=== PATIENT | male | born 1955 | race Caucasian/White ===

== ENCOUNTER 2017-05-14 20:50 | Inpatient (IN) | payer BC ==
[~2017-05-14] VITALS: Ht 175.3 cm; Wt 86.2 kg
[2017-05-14 22:28] LABS: Albumin 3.5 g/dL (3.4-5.0); BUN/Creatinine Ratio 8.1; Basophils # (auto) 0.1 uL; Basophils % (auto) 0.5 % (0.0-2.0); Bilirubin, Total 0.7 mg/dL (0.2-1.0); CONDITION Y; Calcium 8.8 mg/dL (8.5-10.1); DEFINITIVE SEE PRINTOUT; Eosinophils # (auto) 0.1 uL; Eosinophils % (auto) 0.3 % (0.0-7.0); Hemoglobin 12.2 g/dL (13.5-17.5); Lymphocytes # (auto) 1.9 uL; Lymphocytes % (auto) 12.6 % (10.0-50.0); Mean Corpuscular Hgb Conc. 34.9 g/dL (32.0-36.0); Mean Corpuscular Volume 103.1 fL (80.0-100.0); Mean Platelet Volume 8.2 fL (7.4-10.4); Monocytes # (auto) 0.6 uL; Monocytes % (auto) 4.4 % (0.0-12.0); Neutrophils # (auto) 12.1 uL; Neutrophils % (auto) 82.2 % (37.0-80.0); Platelet Count (auto) 362 10^3/uL (140-450); Potassium 3.3 mmol/L (3.5-5.1); Red Cell Distribution Width 12.9 % (11.6-16.0); Total Protein 6.7 g/dL (6.4-8.2); White Blood Cell 14.8 10^3/uL (4.4-10.8)
[2017-05-14 22:46] LABS: INR 0.94 (0.9-1.15); Prothrombin Time 10.2 sec (9.37-12.3)
[2017-05-15] MEDS ORDERED: SODIUM CHLORIDE 0.9% 1,000 ML IV ONE (02:30)
[2017-05-15] MEDS ORDERED: ONDANSETRON HCL 4 MG/2 ML VIAL IV ONE (08:00)
[2017-05-15] MEDS ORDERED: MORPHINE SULFATE 4 MG/ML SYRG IV ONE (08:00)
[2017-05-15] MEDS ORDERED: metroNIDAZOLE 500MG/100ML 100 ML IV ONE (08:00)
[2017-05-15] MEDS ORDERED: cefTRIAXone 1GM/50ML D5W 50 ML IV ONE (08:00)
[2017-05-15 08:02] LABS: Urine Bilirubin Negative (Negative); Urine Blood Negative /uL (Negative); Urine Color Yellow (Yellow); Urine Glucose Normal (Normal); Urine Ketone Negative (Negative); Urine Nitrite Negative (Negative); Urine RBC <1 /hpf (0 - 3); Urine Urobilinogen Normal (Negative); Urine pH 5.5 (5.0-8.0)
[2017-05-15] MEDS ORDERED: POTASSIUM CHL 10 Meq TABLET PO ONE (09:30)
[2017-05-15] MEDS ORDERED: CYCLOBENZAPRINE HCL 10 MG TAB PO PRN (09:30)
[2017-05-15] MEDS ORDERED: TEMAZEPAM 15 MG CAP PO PRN (09:30)
[2017-05-15] MEDS ORDERED: DOCUSATE SOD 100 MG CAP PO PRN (09:30)
[2017-05-15] MEDS ORDERED: ACETAMINOPHEN 325 MG TAB PO PRN (09:30)
[2017-05-15] MEDS: SODIUM CHLORIDE 0.9% 1,000 ML IV SCH ×4 (09:40→14:39)
[2017-05-15] MEDS: PANTOPRAZOLE SODIUM 40 MG/10 ML VIAL IV SCH (09:48)
[2017-05-15] MEDS: amLODIPine BESYLATE 5 MG TAB PO SCH (09:48)
[2017-05-15] MEDS: FAMOTIDINE (10MG/ML) 2ML VL IV SCH (09:48)
[2017-05-15] MEDS: NICOTINE 14 MG/24HR TOPICAL PATCH TD SCH (09:49)
[2017-05-15] MEDS: ATENOLOL 50 MG TAB PO SCH ×2 (09:49→21:35)
[2017-05-15] MEDS: MORPHINE SULF INJ 2 MG/ML SYRINGE 1ML IV PRN ×3 (12:08→20:30)
[2017-05-15] MEDS: GABAPENTIN 400 MG CAP PO SCH ×2 (14:35→21:34)
[2017-05-15] MEDS: metroNIDAZOLE 500MG/100ML 100 ML IV SCH ×2 (14:35→21:36)
[2017-05-15] MEDS: HYDROcodone-ACET 10/325MG TAB PO PRN ×2 (14:36→19:46)
[2017-05-15] MEDS ORDERED: HYDR-4663 PO (15:28)
[2017-05-15] MEDS ORDERED: ATE50T PO (15:28)
[2017-05-15] MEDS ORDERED: AMLO5TAB2 PO (15:30)
[2017-05-15] MEDS ORDERED: OMEP20CA74 PO (15:30)
[2017-05-15] MEDS ORDERED: CYCL7.5T15 PO (15:30)
[2017-05-15] MEDS: ONDANSETRON HCL 4 MG/2 ML VIAL IV PRN ×2 (16:09→21:33)
[2017-05-15 22:00] VITALS: BP 127/76
[2017-05-16] MEDS: MORPHINE SULF INJ 2 MG/ML SYRINGE 1ML IV PRN ×3 (02:10→12:19)
[2017-05-16 05:15] VITALS: BP 147/77
[2017-05-16] MEDS: metroNIDAZOLE 500MG/100ML 100 ML IV SCH ×3 (05:48→21:45)
[2017-05-16] MEDS: GABAPENTIN 400 MG CAP PO SCH ×3 (05:48→21:42)
[2017-05-16] MEDS: HYDROcodone-ACET 10/325MG TAB PO PRN ×5 (05:48→18:29)
[2017-05-16] MEDS: ONDANSETRON HCL 4 MG/2 ML VIAL IV PRN ×3 (06:02→21:44)
[2017-05-16 07:27] LABS: Basophils # (auto) 0 uL; Basophils % (auto) 0.3 % (0.0-2.0); CONDITION Y; DEFINITIVE SEE PRINTOUT; Eosinophils # (auto) 0.2 uL; Hemoglobin 10.9 g/dL (13.5-17.5); Lymphocytes # (auto) 0.9 uL; Lymphocytes % (auto) 7.1 % (10.0-50.0); Mean Corpuscular Hemoglobin 35.7 pg (28.0-32.0); Mean Corpuscular Hgb Conc. 34.2 g/dL (32.0-36.0); Mean Corpuscular Volume 104.4 fL (80.0-100.0); Mean Platelet Volume 8.1 fL (7.4-10.4); Monocytes # (auto) 0.5 uL; Monocytes % (auto) 4.4 % (0.0-12.0); Neutrophils # (auto) 10.5 uL; Neutrophils % (auto) 86.2 % (37.0-80.0); Platelet Count (auto) 273 10^3/uL (140-450); White Blood Cell 12.2 10^3/uL (4.4-10.8)
[2017-05-16 07:51] LABS: Albumin 3.2 g/dL (3.4-5.0); BUN/Creatinine Ratio 7.5; Bilirubin, Total 0.6 mg/dL (0.2-1.0); Total Protein 5.9 g/dL (6.4-8.2)
[2017-05-16 09:00] VITALS: BP 129/75
[2017-05-16] MEDS: FAMOTIDINE (10MG/ML) 2ML VL IV SCH (10:02)
[2017-05-16] MEDS: PANTOPRAZOLE SODIUM 40 MG/10 ML VIAL IV SCH (10:02)
[2017-05-16] MEDS: cefTRIAXone 1GM/50ML D5W 50 ML IV SCH (10:02)
[2017-05-16] MEDS: MULTIPLE VITAMIN TAB PO SCH (10:02)
[2017-05-16] MEDS: ATENOLOL 50 MG TAB PO SCH ×2 (10:03→21:43)
[2017-05-16] MEDS: amLODIPine BESYLATE 5 MG TAB PO SCH (10:03)
[2017-05-16] MEDS: NICOTINE 14 MG/24HR TOPICAL PATCH TD SCH (10:04)
[2017-05-16 13:00] VITALS: BP 136/74
[2017-05-16] MEDS: MORPHINE SULFATE 4 MG/ML SYRG IV PRN ×2 (16:06→21:46)
[2017-05-16 16:24] VITALS: BP 128/76
[2017-05-16] MEDS: SODIUM CHLORIDE 0.9% 1,000 ML IV SCH (19:03)
[2017-05-16 20:00] VITALS: BP 144/63
[2017-05-16 22:00] VITALS: BP 144/63
[2017-05-17] VITALS (7 sets, daily range): BP systolic 121–146; BP diastolic 63–88
[2017-05-17] MEDS: SODIUM CHLORIDE 0.9% 1,000 ML IV SCH ×2 (03:07→11:27)
[2017-05-17] MEDS: GABAPENTIN 400 MG CAP PO SCH ×3 (05:55→21:09)
[2017-05-17] MEDS: metroNIDAZOLE 500MG/100ML 100 ML IV SCH ×2 (05:55→14:24)
[2017-05-17] MEDS: HYDROcodone-ACET 10/325MG TAB PO PRN ×4 (05:56→22:34)
[2017-05-17] MEDS: ONDANSETRON HCL 4 MG/2 ML VIAL IV PRN ×3 (05:56→21:30)
[2017-05-17] MEDS: MORPHINE SULFATE 4 MG/ML SYRG IV PRN ×4 (08:41→21:30)
[2017-05-17] MEDS: NICOTINE 14 MG/24HR TOPICAL PATCH TD SCH (08:42)
[2017-05-17] MEDS: PANTOPRAZOLE SODIUM 40 MG/10 ML VIAL IV SCH (08:43)
[2017-05-17] MEDS: FAMOTIDINE (10MG/ML) 2ML VL IV SCH (08:43)
[2017-05-17] MEDS: MULTIPLE VITAMIN TAB PO SCH (08:43)
[2017-05-17] MEDS: cefTRIAXone 1GM/50ML D5W 50 ML IV SCH (08:44)
[2017-05-17] MEDS: amLODIPine BESYLATE 5 MG TAB PO SCH (11:19)
[2017-05-17] MEDS: ATENOLOL 50 MG TAB PO SCH ×2 (11:19→21:10)
[2017-05-17] MEDS: D5W/SOD CHL 0.45%/KCL 40MEQ 1,000 ML IV SCH (18:32)
[2017-05-17] MEDS ORDERED: POTASSIUM CHL 20 Meq TABLET PO ONE (22:00)
[2017-05-18] MEDS: D5W/SOD CHL 0.45%/KCL 40MEQ 1,000 ML IV SCH (05:15)
[2017-05-18] MEDS: GABAPENTIN 400 MG CAP PO SCH ×2 (05:15→13:16)
[2017-05-18 05:30] VITALS: BP 123/78
[2017-05-18 07:15] LABS: Potassium 3.1 mmol/L (3.5-5.1)
[2017-05-18 08:00] VITALS: BP 136/82
[2017-05-18] MEDS: MORPHINE SULFATE 4 MG/ML SYRG IV PRN ×2 (08:56→13:16)
[2017-05-18] MEDS: PANTOPRAZOLE SODIUM 40 MG/10 ML VIAL IV SCH (08:56)
[2017-05-18] MEDS: FAMOTIDINE (10MG/ML) 2ML VL IV SCH (08:56)
[2017-05-18] MEDS: NICOTINE 14 MG/24HR TOPICAL PATCH TD SCH (08:57)
[2017-05-18 09:04] VITALS: BP 109/75
[2017-05-18] MEDS: HYDROcodone-ACET 10/325MG TAB PO PRN ×2 (10:21→15:09)
[2017-05-18] MEDS: amLODIPine BESYLATE 5 MG TAB PO SCH (10:24)
[2017-05-18] MEDS: MULTIPLE VITAMIN TAB PO SCH (10:24)
[2017-05-18] MEDS: ATENOLOL 50 MG TAB PO SCH (10:25)
[2017-05-18 13:05] VITALS: BP 132/77
[2017-05-18 16:03] VITALS: BP 131/86
== END 2017-05-18 16:50 | disposition home or self-care (01) | DRG 439 ==
LOC: ER 20:57 → OVERFLOW 20:58 → WEST WING 05-15 14:00
PROVIDERS: ADMIT Internal Medicine; ATTEND Internal Medicine Pulmonary Disease
DX: K85.90 Acute pancreatitis without necrosis or infection, unspecified (principal); E87.1 Hypo-osmolality and hyponatremia; I10 Essential (primary) hypertension; K21.9 Gastro-esophageal reflux disease without esophagitis; K57.30 Diverticulosis of large intestine without perforation or abscess without bleeding; G89.4 Chronic pain syndrome; E86.0 Dehydration; D63.8 Anemia in other chronic diseases classified elsewhere; E87.6 Hypokalemia; Z82.49 Family history of ischemic heart disease and other diseases of the circulatory system; Z79.899 Other long term (current) drug therapy
CPT/HCPCS: 36415; 74176; 76705; 80051; 80053; 81001; 82150; 83605; 83690; 84484; 85025; 85610; 85730; 87040; 93005; 96361; 96365; 96375; C9113; J0696; J2405; J3490

== ENCOUNTER 2017-09-02 19:49 | Inpatient (IN) | payer BC ==
[~2017-09-02] VITALS: Ht 175.3 cm; Wt 52.9 kg
[~2017-09-02 19:49] MED LIST: AMLO5TAB2 PO; ATE50T PO; CYCL7.5T15 PO; HYDR-4683 PO; OMEP20CA74 PO
[2017-09-02 20:43] LABS: Basophils # (auto) 0.1 uL; Eosinophils # (auto) 0.1 uL; Lymphocytes # (auto) 1.4 uL; Mean Platelet Volume 7.6 fL (6.9-10.8); Monocytes # (auto) 0.5 uL; Neutrophils # (auto) 7.5 uL; Nucleated Red Blood Cells % 0.2 %; White Blood Cell 9.7 10^3/uL (4.4-10.8)
[2017-09-02 20:44] LABS: Basophils % (auto) 0.9 % (0.0-2.0); Eosinophils % (auto) 0.9 % (0.0-7.0); Hematocrit 38.6 % (41.0-53.0); Hemoglobin 13.8 g/dL (13.5-17.5); Lymphocytes % (auto) 14.9 % (10.0-50.0); Mean Corpuscular Hemoglobin 36.5 pg (28.0-32.0); Mean Corpuscular Hgb Conc. 35.8 g/dL (32.0-36.0); Monocytes % (auto) 5.6 % (0.0-12.0); Neutrophils % (auto) 77.7 % (37.0-80.0); Platelet Count (auto) 258 10^3/uL (140-450); Red Cell Distribution Width 14.8 % (11.8-14.3)
[2017-09-02 20:46] LABS: INR 0.95 (0.9-1.15); Partial Thromboplastin Time 27.3 sec (22.64-33.71); Prothrombin Time 10.4 sec (9.37-12.3)
[2017-09-02] MEDS ORDERED: SODIUM CHLORIDE 0.9% 1,000 ML IVB ONE (20:56)
[2017-09-02 20:59] LABS: Albumin 3.4 g/dL (3.4-5.0); Alkaline Phosphatase 232 U/L (45-117); Amylase 169 U/L (25-115); Anion Gap 8 (5-15); Aspartate Aminotransferase 79 U/L (15-37); BUN/Creatinine Ratio 9.7; Bilirubin, Total 0.7 mg/dL (0.2-1.0); Blood Urea Nitrogen 7 mg/dL (7-18); Calcium 8.1 mg/dL (8.5-10.1); Carbon Dioxide 30 mmol/L (21-32); Chloride 94 mmol/L (98-107); GFR African American 143 mL/min; GFR Non-African American 118 mL/min; Glucose 133 mg/dL (74-106); Sodium 132 mmol/L (136-145)
[2017-09-02] MEDS ORDERED: MORPHINE SULF INJ 2 MG/ML SYRINGE 1ML IV ONE ×2 (21:00→22:00)
[2017-09-02] MEDS ORDERED: ONDANSETRON HCL 4 MG/2 ML VIAL IV ONE (21:00)
[2017-09-02] MEDS: POTASSIUM CHL 20MEQ/100ML 100 ML IV SCH (21:45)
[2017-09-02] MEDS ORDERED: PANTOPRAZOLE 40 MG/10 ML VIAL IV ONE (22:00)
[2017-09-02] MEDS ORDERED: PROMETHAZINE HCL 25 MG/ML 1ML IV ONE (22:15)
[2017-09-02] MEDS ORDERED: HYDROmorphone HCL 2 MG/ML VL IV ONE (22:15)
[2017-09-02] MEDS ORDERED: ONDANSETRON HCL 4 MG/2 ML VIAL IV PRN (22:30)
[2017-09-02] MEDS ORDERED: TEMAZEPAM 15 MG CAP PO PRN (22:30)
[2017-09-02] MEDS ORDERED: ACETAMINOPHEN 500 MG TAB PO PRN (22:30)
[2017-09-02] MEDS: SODIUM CHLORIDE 0.9% 1,000 ML IV SCH (23:28)
[2017-09-02] MEDS ORDERED: cefTRIAXone 1GM/50ML D5W 50 ML IV ONE (23:30)
[2017-09-02 23:32] LABS: Urine RBC None Seen /hpf (0 - 3)
[2017-09-02 23:52] LABS: Urine Bilirubin Negative (Negative); Urine Blood Negative /uL (Negative); Urine Color Yellow (Yellow); Urine Glucose Normal (Normal); Urine Ketone Negative (Negative); Urine Nitrite Negative (Negative); Urine Urobilinogen Normal (Negative); Urine pH 6.5 (5.0-8.0)
[2017-09-03] VITALS (8 sets, daily range): BP systolic 130–148; BP diastolic 83–97
[2017-09-03] MEDS: HYDROcodone-ACET 5/325MG TAB PO PRN ×3 (00:22→08:27)
[2017-09-03] MEDS: POTASSIUM CHL 20MEQ/100ML 100 ML IV SCH (00:38)
[2017-09-03] MEDS ORDERED: HYDR-4072 PO (01:12)
[2017-09-03] MEDS: MORPHINE SULF INJ 2 MG/ML SYRINGE 1ML IV PRN ×6 (02:08→22:57)
[2017-09-03] MEDS ORDERED: metroNIDAZOLE 500MG/100ML 100 ML IV SCH (06:00)
[2017-09-03 06:49] LABS: Eosinophils # (auto) 0.2 uL; Hemoglobin 12.1 g/dL (13.5-17.5); Lymphocytes # (auto) 1.3 uL; Platelet Count (auto) 177 10^3/uL (140-450)
[2017-09-03 06:52] LABS: Basophils # (auto) 0.1 uL; Basophils % (auto) 0.5 % (0.0-2.0); Hematocrit 34.1 % (41.0-53.0); Lymphocytes % (auto) 13.1 % (10.0-50.0); Mean Corpuscular Hemoglobin 36.8 pg (28.0-32.0); Mean Corpuscular Hgb Conc. 35.5 g/dL (32.0-36.0); Mean Corpuscular Volume 103.6 fL (80.0-100.0); Mean Platelet Volume 7.9 fL (6.9-10.8); Monocytes # (auto) 0.5 uL; Monocytes % (auto) 4.9 % (0.0-12.0); Neutrophils # (auto) 7.8 uL; Neutrophils % (auto) 79.5 % (37.0-80.0); Nucleated Red Blood Cells % 0.1 %; Red Cell Distribution Width 14.7 % (11.8-14.3); White Blood Cell 9.9 10^3/uL (4.4-10.8)
[2017-09-03 07:21] LABS: Albumin 2.8 g/dL (3.4-5.0); BUN/Creatinine Ratio 10.2; Bilirubin, Total 0.7 mg/dL (0.2-1.0); Calcium 7.5 mg/dL (8.5-10.1); Total Protein 5.7 g/dL (6.4-8.2)
[2017-09-03 07:23] LABS: Potassium 2.9 mmol/L (3.5-5.1)
[2017-09-03] MEDS: SODIUM CHLORIDE 0.9% 1,000 ML IV SCH ×2 (08:56→18:17)
[2017-09-03] MEDS: amLODIPine BESYLATE 5 MG TAB PO SCH (09:27)
[2017-09-03] MEDS: PANTOPRAZOLE 40 MG/10 ML VIAL IV SCH (09:27)
[2017-09-03] MEDS: CYCLOBENZAPRINE HCL 10 MG TAB PO SCH (09:27)
[2017-09-03] MEDS: ATENOLOL 50 MG TAB PO SCH ×2 (09:28→22:47)
[2017-09-03] MEDS ORDERED: POTASSIUM CHLORIDE 40 MEQ, LIDOCAINE 1% (LOCAL ANESTH.) 4 ML in SODIUM CHL 0.9% 250 ML IV ONE (12:15)
[2017-09-03] MEDS ORDERED: POTASSIUM CHL 20 Meq TABLET PO ONE (12:15)
[2017-09-03] MEDS: HYDROcodone-ACET 10/325MG TAB PO PRN ×3 (12:32→20:33)
[2017-09-03] MEDS ORDERED: GABA-497 PO (13:00)
[2017-09-03] MEDS: GABAPENTIN 400 MG CAP PO SCH ×2 (13:22→22:18)
[2017-09-03] MEDS ORDERED: cefTRIAXone 1GM/50ML D5W 50 ML IV SCH (22:00)
[2017-09-04] MEDS: HYDROcodone-ACET 10/325MG TAB PO PRN ×4 (01:04→14:08)
[2017-09-04] MEDS: MORPHINE SULF INJ 2 MG/ML SYRINGE 1ML IV PRN ×4 (03:22→16:31)
[2017-09-04] MEDS: SODIUM CHLORIDE 0.9% 1,000 ML IV SCH ×2 (04:52→14:30)
[2017-09-04 05:00] VITALS: BP 156/90
[2017-09-04 06:33] LABS: Calcium 8.1 mg/dL (8.5-10.1); Magnesium 1.6 mg/dL (1.6-2.6); Potassium 4.1 mmol/L (3.5-5.1)
[2017-09-04 06:46] LABS: BUN/Creatinine Ratio 4.8
[2017-09-04 08:27] VITALS: BP 142/94
[2017-09-04] MEDS: PANTOPRAZOLE 40 MG/10 ML VIAL IV SCH (09:32)
[2017-09-04] MEDS: amLODIPine BESYLATE 5 MG TAB PO SCH (09:33)
[2017-09-04] MEDS: GABAPENTIN 400 MG CAP PO SCH (09:34)
[2017-09-04] MEDS: ATENOLOL 50 MG TAB PO SCH (09:35)
[2017-09-04] MEDS: CYCLOBENZAPRINE HCL 10 MG TAB PO SCH (09:35)
[2017-09-04 12:14] VITALS: BP 139/89
[2017-09-04 16:00] VITALS: BP 139/89
== END 2017-09-04 17:15 | disposition home or self-care (01) | DRG 439 ==
LOC: ER 19:53 → OVERFLOW 19:54 → WEST WING 23:24
PROVIDERS: ADMIT Nurse Practitioner Family; ATTEND Internal Medicine
DX: K85.90 Acute pancreatitis without necrosis or infection, unspecified (principal); E87.1 Hypo-osmolality and hyponatremia; E87.6 Hypokalemia; F17.210 Nicotine dependence, cigarettes, uncomplicated; F10.10 Alcohol abuse, uncomplicated; G89.29 Other chronic pain; I10 Essential (primary) hypertension; I73.9 Peripheral vascular disease, unspecified; J44.9 Chronic obstructive pulmonary disease, unspecified; K21.9 Gastro-esophageal reflux disease without esophagitis; M19.90 Unspecified osteoarthritis, unspecified site; Z79.899 Other long term (current) drug therapy; Z82.49 Family history of ischemic heart disease and other diseases of the circulatory system
CPT/HCPCS: 36415; 71010; 74176; 80048; 80053; 81001; 82150; 83690; 83735; 84484; 85025; 85610; 85730; 93005; 94761; 96361; 96365; 96375; C9113; J0696; J2001; J2405; J3490

== ENCOUNTER 2019-09-08 09:56 | Inpatient (IN) | payer MEDICAID ==
[~2019-09-08] VITALS: Ht 175.3 cm; Wt 54.0 kg
[~2019-09-08 09:56] MED LIST changes: +AMLO5TAB15 PO; -AMLO5TAB2 PO; +CHOL20007 PO; +CYCL1TAB18 PO; -CYCL7.5T15 PO; +FERR-20 PO; +FLUT0.05 NAS; +FOLI1TAB6 PO; -HYDR-4683 PO; +HYDR-4833 PO; +LORA0.5T12 PO; +MUPI2CRE17 EX; -OMEP20CA74 PO; +OMEP20TA PO; +TADA5TAB11 PO; +THIA50CA PO
[2019-09-08] MEDS ORDERED: SODIUM CHLORIDE 0.9% 1,000 ML IV ONE ×2 (10:40)
[2019-09-08 11:25] LABS: Eosinophils # (auto) 0 uL; Eosinophils % (auto) 0.2 % (0.0-7.0); Hemoglobin 11.5 g/dL (13.5-17.5); Lymphocytes # (auto) 0.9 uL; Lymphocytes % (auto) 7.4 % (10.0-50.0); Monocytes # (auto) 0.5 uL; Platelet Count (auto) 257 10^3/uL (140-450)
[2019-09-08 11:27] LABS: Basophils # (auto) 0.1 uL; Basophils % (auto) 0.4 % (0.0-2.0); Hematocrit 33.7 % (41.0-53.0); Mean Corpuscular Hemoglobin 34.9 pg (28.0-32.0); Mean Corpuscular Hgb Conc. 34.1 g/dL (32.0-36.0); Mean Corpuscular Volume 102.1 fL (80.0-100.0); Monocytes % (auto) 4.3 % (0.0-12.0); Neutrophils # (auto) 10.9 uL; Neutrophils % (auto) 87.7 % (37.0-80.0); Nucleated Red Blood Cells % 0.1 %; White Blood Cell 12.4 10^3/uL (4.4-10.8)
[2019-09-08 11:48] LABS: Alanine Aminotransferase 19 U/L (16-61); Albumin 4.1 g/dL (3.4-5.0); Alkaline Phosphatase 143 U/L (45-117); Anion Gap 14 (5-15); Aspartate Aminotransferase 27 U/L (15-37); BUN/Creatinine Ratio 18.1; Bilirubin, Total 1.2 mg/dL (0.2-1.0); Blood Urea Nitrogen 29 mg/dL (7-18); Calcium 9.6 mg/dL (8.5-10.1); Carbon Dioxide 25 mmol/L (21-32); Chloride 87 mmol/L (98-107); GFR African American 56 mL/min; GFR Non-African American 47 mL/min; Glucose 117 mg/dL (74-106); Magnesium 1.7 mg/dL (1.6-2.6); Sodium 126 mmol/L (136-145)
[2019-09-08 11:56] LABS: Potassium 2.9 mmol/L (3.5-5.1)
[2019-09-08] MEDS ORDERED: MORPHINE SULF INJ 2 MG/ML SYRINGE 1ML IV ONE (12:15)
[2019-09-08] MEDS ORDERED: POTASSIUM EFFERVESENT TAB 25 MEQ PO ONE (12:15)
[2019-09-08] MEDS ORDERED: cefTRIAXone 1GM/50ML D5W 50 ML IV ONE (14:00)
[2019-09-08] MEDS ORDERED: HYDROcodone-ACET 10/325MG TAB PO ONE (14:00)
[2019-09-08] MEDS ORDERED: ALUM & MAG HYDROX-SIMETH LIQ(MAALOX) 30 ML PO ONE (14:00)
[2019-09-08] MEDS ORDERED: LIDOCAINE VISCOUS 2% 15ML UD PO ONE (14:00)
[2019-09-08] MEDS ORDERED: POTASSIUM CHL 20 Meq TABLET PO ONE (14:00)
[2019-09-08] MEDS ORDERED: DONNATAL 5ml ORAL Elix (BELLADONNA ALK-PHENOBARB) PO ONE (14:00)
[2019-09-08] MEDS ORDERED: POTASSIUM CHLORIDE 40 MEQ, LIDOCAINE 1% (LOCAL ANESTH.) 4 ML in SODIUM CHL 0.9% 100 ML IV ONE (16:30)
[2019-09-08] MEDS ORDERED: FOLIC ACID 1 MG, MULTIPLE VITAMIN 10 ML, MAGNESIUM SULF SDV 50% 8 MEQ, THIAMINE INJ 100... INJ SCH ×5 (16:30)
[2019-09-08] MEDS ORDERED: ACETAMINOPHEN 500 MG TAB PO PRN (16:30)
[2019-09-08] MEDS ORDERED: IPRATROPIUM BROM 0.5 MG/2.5ML INH SOL NEB PRN (16:30)
[2019-09-08] MEDS ORDERED: LORazepam 2MG/ML-1ML VIAL IV PRN (16:30)
[2019-09-08] MEDS ORDERED: MORPHINE SULF INJ 2 MG/ML SYRINGE 1ML IV PRN (16:30)
[2019-09-08] MEDS ORDERED: ALBUTEROL SULF 2.5 MG/0.5ML(0.5%) NEB SOLN NEB PRN (16:30)
[2019-09-08] MEDS ORDERED: NITROGLYCERIN 0.4 MG SL TAB SL PRN (16:30)
[2019-09-08] MEDS: SUCRALFATE 1 GM/10 ML ORAL SUSP PO SCH (17:10)
[2019-09-08 17:26] LABS: Urine Bacteria NONE SEEN /hpf (None Seen); Urine Blood Negative /uL (Negative); Urine WBC <1 /hpf (0 - 3)
--- NOTE | 2019-09-08 17:45 | NUR ---
RECEIVED PT FROM ER STAFF, PT TRANSPORTED VIA WHEELCHAIR. AWAKE, ALERT, ORIENTEDx4 EFFORTLESS BREATHING ON ROOM AIR. IV PRESENT TO LAC#20, FLUSHES. COMFORTABLE ENVIRONMENT PROVIDED, BED LOCKED AND IN LOWEST POSITION, CALL LIGHT WITHIN REACH. WILL CONTINUE TO MONITOR.
[2019-09-08] MEDS: TAMSULOSIN HYDROCHLORIDE 0.4 MG CAP PO SCH (18:05)
[2019-09-08] MEDS: HYDROcodone-ACET 5/325MG TAB PO PRN (18:18)
[2019-09-08] MEDS: FOLIC ACID 1 MG, MULTIPLE VITAMIN 10 ML, MAGNESIUM SULF SDV 50% 8 MEQ, THIAMINE INJ 100... INJ SCH ×5 (18:19)
--- NOTE | 2019-09-08 18:25 | NUR ---
RT NOTE: PT DENIES SOB, PT ON ROOM AIR SPO2 99%, HR 75, RR 16. BS CLEAR. PT HAVING PAIN WHEN TAKING DEEP BREATHS DUE TO CRACKED RIB HE STATED. NO TX WANTED AT THIS TIME.
[2019-09-08 19:43] VITALS: BP 117/82
--- NOTE | 2019-09-08 20:00 | NUR ---
Opening Shift Note Assumed care of patient, awake and alert. No S/S of distress/SOB or pain. Instructed on POC and to call for assist PRN, will continue to monitor for changes Q1hr and PRN.
[2019-09-08] MEDS: ONDANSETRON HCL 4 MG/2 ML VIAL IV PRN (20:33)
[2019-09-08 21:00] VITALS: BP 113/73
[2019-09-08] MEDS: DOCUSATE SOD 100 MG CAP PO PRN (21:10)
[2019-09-08] MEDS: ATENOLOL 25 MG TAB PO SCH (21:11)
[2019-09-08] MEDS: FAMOTIDINE (10MG/ML) 2ML VL IV SCH (21:14)
[2019-09-08] MEDS: MORPHINE SULF INJ 2 MG/ML SYRINGE 1ML IV PRN (21:29)
[2019-09-09] MEDS: HYDROcodone-ACET 5/325MG TAB PO PRN ×3 (00:29→16:50)
[2019-09-09 04:30] VITALS: BP 107/67
[2019-09-09] MEDS: SUCRALFATE 1 GM/10 ML ORAL SUSP PO SCH ×3 (05:47→17:45)
[2019-09-09 06:37] LABS: Albumin 3.1 g/dL (3.4-5.0); BUN/Creatinine Ratio 17.8; Bilirubin, Total 0.6 mg/dL (0.2-1.0); Calcium 8.2 mg/dL (8.5-10.1); Magnesium 1.7 mg/dL (1.6-2.6); Potassium 3.3 mmol/L (3.5-5.1); Total Protein 5.8 g/dL (6.4-8.2)
--- NOTE | 2019-09-09 07:30 | NUR ---
Care report given to Marilu Pace, patient is resting no respiratory distress.
[2019-09-09 09:00] VITALS: BP 102/72
[2019-09-09] MEDS: FAMOTIDINE (10MG/ML) 2ML VL IV SCH (09:10)
[2019-09-09] MEDS: cefTRIAXone 1GM/50ML D5W 50 ML IV SCH (09:10)
[2019-09-09] MEDS: ONDANSETRON HCL 4 MG/2 ML VIAL IV PRN (09:10)
[2019-09-09] MEDS: ATENOLOL 25 MG TAB PO SCH ×2 (09:14→21:20)
[2019-09-09] MEDS: amLODIPine BESYLATE 5 MG TAB PO SCH (09:14)
[2019-09-09] MEDS ORDERED: POTASSIUM CHL 20 Meq TABLET PO ONE (10:15)
[2019-09-09] MEDS ORDERED: MAGNESIUM OXIDE 400 MG TAB PO ONE (10:15)
--- NOTE | 2019-09-09 11:09 | NUR ---
Respiratory note: PT ASSESSED FOR PRN MED NEB TX. TX IS NOT INDICATED AT THIS TIME. PT IS BREATHING COMFORTABLY ON RA. POX 97%, HR 70, RR 14. B/S ARE CLEAR THROUGHOUT.
[2019-09-09] MEDS: DOCUSATE SOD 100 MG CAP PO PRN ×2 (11:25→21:18)
[2019-09-09] MEDS: MORPHINE SULF INJ 2 MG/ML SYRINGE 1ML IV PRN ×2 (11:31→20:54)
[2019-09-09] MEDS: FOLIC ACID 1 MG, MULTIPLE VITAMIN 10 ML, MAGNESIUM SULF SDV 50% 8 MEQ, THIAMINE INJ 100... INJ SCH ×5 (11:57)
[2019-09-09 12:11] LABS: Amylase 66 U/L (25-115)
[2019-09-09 12:17] LABS: Lipase 474 U/L (73-393)
[2019-09-09 13:00] VITALS: BP 128/77
[2019-09-09 13:01] LABS: Alcohol, Urine < 3.0 mg/dL (0-5); Amphetamine Screen, Urine NEGATIVE (NEGATIVE); Barbiturate Scree,Urine POSITIVE (NEGATIVE); Benzodiazephine Screen, Urine NEGATIVE (NEGATIVE); Cannabinoid Screen, Urine NEGATIVE (NEGATIVE); Cocaine Screen, Urine NEGATIVE (NEGATIVE); Opiate Scree,Urine POSITIVE (NEGATIVE); Phencyclidine Screen, Urine NEGATIVE (NEGATIVE)
--- NOTE | 2019-09-09 15:31 | NUR ---
IV CATHETER TO LAC#20 DC'D, CATHETER INTACT, NO PHLEBITIS. IV INSERTION TO RFA#20, FLUSHES WELL. PT TOLERATED PROCEDURE WELL. CALL LIGHT WITHIN REACH.
--- NOTE | 2019-09-09 16:48 | NUR ---
Assessment Pt is a 64 yr old alert and oriented male. Prior to admit, Pt lives with mother and sister. Pt's sister Lara Aguero is his emergency contact at [phone]. Prior to admit, Pt receives HH services through [facility] for "bathing and gaining strength" but is unsure of the company name. Prior to admit, pt could ambulate with a cane, and due to recent sickness with added weakness, has help with cooking and cleaning. Pt was independent with ADL's prior to admit. Pt stated that he is currently an alcoholic but is connected with "[employer] and will be starting a detox inpatient program with them once he is well enough. Pt is currently connected with a sponsor from the program that is a good source of support. Pt is currently filing for disability and only receives EBT assistance. Pt stated that HH resumption order will need to be completed upon d/c. Pt's friend will transport the pt home. Addendum: 09/09/19 at 1655 by LOUIS MILNER SS Amended: Links added.
[2019-09-09 17:00] VITALS: BP 148/65
[2019-09-09] MEDS: TAMSULOSIN HYDROCHLORIDE 0.4 MG CAP PO SCH (17:45)
--- NOTE | 2019-09-09 18:59 | NUR ---
Respiratory note: ASSESSED PT FOR PRN MED NEB AT THIS TIME, PT DENIES SOB AT THIS TIME, NO RESP DISTRESS NOTED, NO TX INDICATED. PULSE OX 100% ON RA, HR 74, RR 18, BILATERAL BS CLEAR
[2019-09-09] MEDS: MAGNESIUM OXIDE 400 MG TAB PO SCH (21:19)
[2019-09-09 22:00] VITALS: BP 116/73
[2019-09-10 05:00] VITALS: BP 132/70
--- NOTE | 2019-09-10 05:00 | NUR ---
AGRICULTURE DEPARTMENT CHAIR found patient Vaping in the bed, advised that is allowed it can cause combustion.
[2019-09-10] MEDS: SUCRALFATE 1 GM/10 ML ORAL SUSP PO SCH ×3 (06:05→16:35)
[2019-09-10 06:16] LABS: Basophils # (auto) 0 uL; Eosinophils # (auto) 0.1 uL; Eosinophils % (auto) 1.5 % (0.0-7.0); Hematocrit 25.3 % (41.0-53.0); Lymphocytes # (auto) 1.3 uL; Monocytes # (auto) 0.4 uL; White Blood Cell 6.3 10^3/uL (4.4-10.8)
[2019-09-10 06:19] LABS: Calcium 8.6 mg/dL (8.5-10.1)
[2019-09-10 06:20] LABS: Basophils % (auto) 0.4 % (0.0-2.0); Hemoglobin 8.6 g/dL (13.5-17.5); Lymphocytes % (auto) 20.5 % (10.0-50.0); Mean Corpuscular Hemoglobin 35.8 pg (28.0-32.0); Mean Corpuscular Hgb Conc. 34.1 g/dL (32.0-36.0); Monocytes % (auto) 6.2 % (0.0-12.0); Neutrophils # (auto) 4.5 uL; Neutrophils % (auto) 71.4 % (37.0-80.0); Platelet Count (auto) 134 10^3/uL (140-450); Red Blood Cells 2.41 10^6/uL (4.5-5.90); Red Cell Distribution Width 15.2 % (11.8-14.3)
[2019-09-10 06:23] LABS: Albumin 2.8 g/dL (3.4-5.0); BUN/Creatinine Ratio 11.6; Bilirubin, Total 0.7 mg/dL (0.2-1.0); Magnesium 1.8 mg/dL (1.6-2.6); Total Protein 5.6 g/dL (6.4-8.2)
--- NOTE | 2019-09-10 07:16 | NUR ---
Report given to Marilu Adorno, patient is resting no distress.
--- NOTE | 2019-09-10 07:24 | NUR ---
Gave the vape to Marilu currie to give it to the patient and to advised him not to use it while he is in the hospital.
--- NOTE | 2019-09-10 07:30 | NUR ---
Opening Shift Note RECEIVED REPORT FROM NOC RN. Assumed care of patient, awake and alert. No S/S of distress/SOB or pain. BED IN LOWEST, LOCKED POSITION WITH SIDERAILS UP x2 AND CALL LIGHT WITHIN REACH. Instructed on POC and to call for assist PRN, will continue to monitor for changes Q1hr and PRN.
--- NOTE | 2019-09-10 07:40 | NUR ---
Respiratory note: PT IS AWAKE, AND ALERT. NO RESPIRATORY DISTRESS NOTED. SPO2 97% ON RA, HR 75, RR 18, BS CLEAR T/O. PRN MEDNEB TX NOT INDICATED. PT INFORMED TO PUSH CALL BUTTON IF INCREASED WOB, SOB, OR WHEEZING OCCURS.
[2019-09-10 08:23] VITALS: BP 99/57
[2019-09-10] MEDS: amLODIPine BESYLATE 5 MG TAB PO SCH (10:00)
[2019-09-10] MEDS: ATENOLOL 25 MG TAB PO SCH ×2 (10:00→21:40)
[2019-09-10] MEDS: FAMOTIDINE (10MG/ML) 2ML VL IV SCH (10:01)
[2019-09-10] MEDS: MAGNESIUM OXIDE 400 MG TAB PO SCH ×2 (10:04→21:39)
[2019-09-10] MEDS: cefTRIAXone 1GM/50ML D5W 50 ML IV SCH (10:05)
[2019-09-10] MEDS: MORPHINE SULF INJ 2 MG/ML SYRINGE 1ML IV PRN ×3 (10:21→20:22)
--- NOTE | 2019-09-10 11:23 | NUR ---
DR. LEMUS AT BEDSIDE.
[2019-09-10] MEDS: FOLIC ACID 1 MG, MULTIPLE VITAMIN 10 ML, MAGNESIUM SULF SDV 50% 8 MEQ, THIAMINE INJ 100... INJ SCH ×5 (12:40)
[2019-09-10] MEDS: HYDROcodone-ACET 5/325MG TAB PO PRN ×2 (12:41→18:51)
[2019-09-10 13:16] VITALS: BP 127/84
[2019-09-10 16:35] VITALS: BP 115/72
[2019-09-10] MEDS: TAMSULOSIN HYDROCHLORIDE 0.4 MG CAP PO SCH (17:50)
--- NOTE | 2019-09-10 19:05 | NUR ---
Respiratory note: ASSESSED PT FOR PRN MED NEB AT THIS TIME, PT DENIES SOB AT THIS TIME, NO RESP DISTRESS NOTED, NO TX INDICATED, PULSE OX 99% ON RA, HR 88, RR 20, BILATERAL BS CLEAR DECREASED.
--- NOTE | 2019-09-10 19:20 | NUR ---
Opening Shift Note Assumed care of patient, awake and alert. No S/S of distress or SOB. Patient resting in bed comfortably and verbalizes 10/10 pain located on right rib area and chronic back pain. Patient already medicated by day shift RN, prn pain meds not due yet, explained need to wait for next administration, patient states "only thing that works for me is morphine but I want a dosage increase to 8mg because thats what works for me." Patient informed that MD will be made aware of his pain status, patient then states, "just give me tonights morpine and I will be going home tomorrow morning." Patient will be assessed and pain will be monitored, will medicate as per order. Instructed on POC and to call for assist PRN, patient verbalizes understanding. Will continue to monitor for changes Q1hr and PRN.
--- NOTE | 2019-09-10 21:15 | NUR ---
AMA- SMOKE PATIENT OFF UNIT ON AMA TO SMOKE
--- NOTE | 2019-09-10 21:24 | NUR ---
PATIENT BACK IN ROOM
[2019-09-10 22:00] VITALS: BP 103/62
--- NOTE | 2019-09-10 22:00 | NUR ---
2200 ATENOLOL HELD D/T BP WNL:103/82.
--- NOTE | 2019-09-10 22:41 | NUR ---
[facility]199 [facility] [place] REFUSED PATIENT STATES "I'M ALREADY GETTING ALL THAT THROUGH MY IV, SO I WANT TO TAKE IT BECAUSE THERE'S NO REASON, I JUST NEED MY PAIN MEDICATION." PATIENT EDUCATED ON MEDICATION REASONS/BENEFITS/RISKS OF REFUSING. PATIENT CONTINUES TO REFUSE.
[2019-09-11] MEDS: MORPHINE SULF INJ 2 MG/ML SYRINGE 1ML IV PRN ×3 (00:15→09:24)
[2019-09-11 04:58] VITALS: BP 125/88
[2019-09-11 05:47] LABS: Basophils # (auto) 0 uL; Eosinophils # (auto) 0.1 uL; Eosinophils % (auto) 1.7 % (0.0-7.0); Hemoglobin 8.6 g/dL (13.5-17.5); Lymphocytes # (auto) 1.6 uL; Monocytes # (auto) 0.5 uL; Red Cell Distribution Width 15.3 % (11.8-14.3)
[2019-09-11 05:51] LABS: Basophils % (auto) 0.6 % (0.0-2.0); Hematocrit 25.3 % (41.0-53.0); Lymphocytes % (auto) 19.7 % (10.0-50.0); Mean Corpuscular Hemoglobin 35.9 pg (28.0-32.0); Mean Corpuscular Hgb Conc. 33.8 g/dL (32.0-36.0); Mean Corpuscular Volume 106.3 fL (80.0-100.0); Neutrophils # (auto) 5.7 uL; Platelet Count (auto) 150 10^3/uL (140-450); Red Blood Cells 2.38 10^6/uL (4.5-5.90); White Blood Cell 7.9 10^3/uL (4.4-10.8)
[2019-09-11 06:12] LABS: Calcium 8.4 mg/dL (8.5-10.1); Potassium 4.7 mmol/L (3.5-5.1)
[2019-09-11 06:15] LABS: BUN/Creatinine Ratio 12.9
[2019-09-11] MEDS: SUCRALFATE 1 GM/10 ML ORAL SUSP PO SCH ×2 (06:44→11:46)
[2019-09-11 08:56] LABS: Hepatitis B Surface Antibody Negative
[2019-09-11 09:00] VITALS: BP 114/66
[2019-09-11] MEDS: cefTRIAXone 1GM/50ML D5W 50 ML IV SCH (09:11)
[2019-09-11 09:28] LABS: Hepatitis A Total Antibody Negative
[2019-09-11 09:50] LABS: Hepatitis B Core Total AB Negative
[2019-09-11 09:51] LABS: Hepatitis B Surface Antigen Negative (Negative); Hepatitis C Antibody Negative (Negative)
[2019-09-11] MEDS: FAMOTIDINE (10MG/ML) 2ML VL IV SCH (10:16)
[2019-09-11] MEDS: ATENOLOL 25 MG TAB PO SCH (10:17)
[2019-09-11] MEDS: amLODIPine BESYLATE 5 MG TAB PO SCH (10:18)
[2019-09-11] MEDS: MAGNESIUM OXIDE 400 MG TAB PO SCH (10:19)
[2019-09-11] MEDS: HYDROcodone-ACET 5/325MG TAB PO PRN (11:46)
[2019-09-11 12:32] VITALS: BP 118/80
[2019-09-11 13:00] VITALS: BP 118/80
[2019-09-11 19:01] VITALS: BP 118/80
== END 2019-09-11 13:15 | disposition home or self-care (01) | DRG 135 ==
LOC: EDBD 09:56 → ER 09:59 → TELE 10:00 → TELE-WESTW 17:30
PROVIDERS: ADMIT Nurse Practitioner Acute Care; ATTEND Internal Medicine
DX: S22.41XA Multiple fractures of ribs, right side, initial encounter for closed fracture (principal); K85.20 Alcohol induced acute pancreatitis without necrosis or infection; R64 Cachexia; E87.1 Hypo-osmolality and hyponatremia; J43.2 Centrilobular emphysema; K86.0 Alcohol-induced chronic pancreatitis; E87.6 Hypokalemia; K21.9 Gastro-esophageal reflux disease without esophagitis; N40.0 Benign prostatic hyperplasia without lower urinary tract symptoms; I73.9 Peripheral vascular disease, unspecified; D64.9 Anemia, unspecified; F10.10 Alcohol abuse, uncomplicated; F17.210 Nicotine dependence, cigarettes, uncomplicated; G89.4 Chronic pain syndrome; I10 Essential (primary) hypertension; M54.5 Low back pain; W18.39XA Other fall on same level, initial encounter; R62.7 Adult failure to thrive; Z82.0 Family history of epilepsy and other diseases of the nervous system; Z68.1 Body mass index [BMI] 19.9 or less, adult; Z82.49 Family history of ischemic heart disease and other diseases of the circulatory system; Z86.73 Personal history of transient ischemic attack (TIA), and cerebral infarction without residual deficits; Y93.89 Activity, other specified; Y92.89 Other specified places as the place of occurrence of the external cause; Y99.8 Other external cause status; Z71.41 Alcohol abuse counseling and surveillance of alcoholic; R63.6 Underweight
CPT/HCPCS: 36415; 71250; 80048; 80053; 80061; 80307; 80320; 81001; 82150; 82270; 83036; 83690; 83735; 84439; 84443; 84484; 85025; 86703; 86704; 86706; 86708; 86803; 87040; 87081; 87086; 87340; 93005; 96361; 96365; 96375; 97116; 97530; G0378; J0696; J2001; J2405; J3490

== ENCOUNTER 2020-01-29 08:32 | Emergency (ER) | payer MEDICAID ==
[~2020-01-29] VITALS: Ht 175.3 cm; Wt 54.4 kg
[2020-01-29] MEDS ORDERED: SODIUM CHLORIDE 0.9% 1,000 ML IV ONE (08:36)
[2020-01-29 08:53] LABS: Basophils # (auto) 0.1 10 ^3/uL (0-0.2); Eosinophils # (auto) 0.1 10 ^3/uL (0-0.8); Hemoglobin 10.8 g/dL (13.5-17.5); Monocytes # (auto) 0.6 10 ^3/uL (0-1.3); Monocytes % (auto) 5.8 % (0.0-12.0); Red Blood Cells 2.98 10^6/uL (4.5-5.90)
[2020-01-29 08:55] LABS: Basophils % (auto) 0.8 % (0.0-2.0); Eosinophils % (auto) 0.8 % (0.0-7.0); Hematocrit 31.3 % (41.0-53.0); Lymphocytes # (auto) 1.6 10 ^3/uL (0.4-5.4); Lymphocytes % (auto) 15.3 % (10.0-50.0); Mean Corpuscular Hemoglobin 36.1 pg (28.0-32.0); Mean Corpuscular Hgb Conc. 34.5 g/dL (32.0-36.0); Mean Corpuscular Volume 104.9 fL (80.0-100.0); Neutrophils # (auto) 8.3 10 ^3/uL (1.6-8.6); Neutrophils % (auto) 77.3 % (37.0-80.0); Platelet Count (auto) 396 10^3/uL (140-450); Red Cell Distribution Width 15.7 % (11.8-14.3); White Blood Cell 10.7 10^3/uL (4.4-10.8)
[2020-01-29 09:08] LABS: Alanine Aminotransferase 16 U/L (16-61); Albumin 2.9 g/dL (3.4-5.0); Amylase 28 U/L (25-115); Anion Gap 6 (5-15); Aspartate Aminotransferase 19 U/L (15-37); BUN/Creatinine Ratio 10.7; Blood Urea Nitrogen 13 mg/dL (7-18); Calcium 8.2 mg/dL (8.5-10.1); Carbon Dioxide 23 mmol/L (21-32); Chloride 102 mmol/L (98-107); GFR African American 78 mL/min; GFR Non-African American 64 mL/min; Glucose 110 mg/dL (74-106); Lipase 43 U/L (73-393); Potassium 3.5 mmol/L (3.5-5.1); Sodium 131 mmol/L (136-145)
[2020-01-29 09:13] LABS: Alkaline Phosphatase 120 U/L (45-117); Bilirubin, Total 0.4 mg/dL (0.2-1.0); Total Protein 6.2 g/dL (6.4-8.2)
[2020-01-29] MEDS ORDERED: HYDROcodone-ACET 10/325MG TAB PO ONE (09:45)
[2020-01-29] MEDS ORDERED: metroNIDAZOLE 500MG/100ML 100 ML IV ONE (12:45)
[2020-01-29 14:36] VITALS: BP 139/88
== END 2020-01-29 15:16 | disposition home or self-care (01) ==
LOC: EDBD 08:32 → ER 08:32
DX: K52.9 Noninfective gastroenteritis and colitis, unspecified (principal); I12.9 Hypertensive chronic kidney disease with stage 1 through stage 4 chronic kidney disease, or unspecified chronic kidney disease; N18.9 Chronic kidney disease, unspecified; K21.9 Gastro-esophageal reflux disease without esophagitis; F17.210 Nicotine dependence, cigarettes, uncomplicated
CPT/HCPCS: 36415; 71045; 74176; 80053; 82150; 83605; 83690; 84484; 85025; 87040; 93005; 96361; 96365; 96366; 99285; J3490; J7030

== ENCOUNTER 2024-09-21 12:53 | Inpatient (IN) | payer OTHER, MEDICAID ==
[~2024-09-21] VITALS: Ht 167.6 cm; Wt 97.5 kg
[2024-09-21] VITALS (11 sets, daily range): BP systolic 89–107; BP diastolic 55–67; PULSE 55–68; RESP 12–18; TEMP 97.6–97.8; O2SAT 97–100
[~2024-09-21 12:53] MED LIST changes: +AMLO1TAB22 PO; -AMLO5TAB15 PO; +CYCL-839 PO; -CYCL1TAB18 PO; -FERR-20 PO; +FERR325T24 PO; +FOLI-119 PO; -FOLI1TAB6 PO; +LORA-1121 PO; -LORA0.5T12 PO
--- NOTE | 2024-09-21 13:02 | ECG ---
[facility] Test Date: 2024-09-21 Test Time: 12:59:34 Pat Name: BERTO SIMMONS Department: ED Room: 0206T Gender: M [employer]: : 1955 Requested By: BEATRIZ IBARRA Order Number: [id number] Reading MD: Manish Garibay Measurements Intervals [place] Rate: 69 P: 2 MS: 150 QRS: 81 QRSD: 91 T: 73 QT: 427 QTc: 458 Interpretive Statements Sinus rhythm Borderline right axis deviation Electronically Signed On 09-25-2024 11:14:21 PST by Manish Garibay Please click the below link to view image of tracing.
--- NOTE | 2024-09-21 13:20 | ED.PDOC ---
History of Present Illness HPI Comments 69Y M with PMHx HTN, TIA, CKD, and hip surgery presents to ED via EMS for chief complaint dizziness and weakness. Upon EMS arrival, pt's BP was 69/62 and he was provided with NS via 18g Lt AC. Systolic BP then increased to 104. Pt had a fall on Sunday where he fell backwards and hit his buttocks and pelvis. X-rays were ordered by different provider and pt was told he only had bruising. Pt was walking fine after the fall, but today was having difficulty bearing weight on legs. Pt states he felt his legs were going to "give out". Pt is currently taking Amlodipine and Atenolol for HTN management. Pt vapes and drinks alcohol occasionally. Pt denies illicit drug use. No known allergies. Chief Complaint: Dizziness Time Seen by MD: 12:53 Primary Care Provider: EULOGIO Hendrickson Reviewed Notes: Medications, Allergies Allergies: Coded Allergies: NO KNOWN ALLERGIES (Unverified , 05/14/17) Home Meds Active Scripts Mupirocin Calcium (Topical) (MUPIROCIN) 2 % Cre, 2 % EX DIRECTED for 5 Days, CRE Prov:MICHELLE MCNEIL MD 08/06/19 Folic Acid (Folic Acid) 1 Mg Tab, 1 MG PO DAILY, #30 TAB Prov:MICHELLE MCNEIL MD 08/06/19 Thiamine Hcl (Thiamine) 50 Mg Cap, 50 MG PO DAILY, #30 Prov:MICHELLE MCNEIL MD 08/06/19 Reported Medications Ferrous Sulfate (Ferrous Sulfate) 325 Mg Tab, 325 MG PO BIDWM for 30 Days, MG 08/05/19 Cholecalciferol (VITAMIN D3) 2,000 Unit Tab, 80316 UNIT PO QWEEKLY, TAB 08/05/19 Hydrocodone-Acetaminophen (Barker 5/325MG) 1 Tab Tb, 2 TAB PO Q8HR, #90 TAB 08/05/19 Lorazepam (ATIVAN TABLET) 0.5 Mg Tb, 1 TAB PO BID, #60 TAB 08/05/19 Tadalafil (Cialis) 5 Mg Tab, 1 TAB PO DAILY, #30 TAB 5 Refills 08/05/19 Fluticasone Propionate (Fluticasone Propionate) 0.05 % Cre, 50 MCG BRIAN DAILY for 30 Days, MCG 08/05/19 Omeprazole (Gnp Omeprazole) 20 Mg Tab, 1 TAB PO DAILY, #90 TAB 1 Refill 08/05/19 Cyclobenzaprine Hcl (Cyclobenzaprine Hcl) 10 Mg Tab, 5 MG PO TID for 30 Days, MG 08/05/19 Amlodipine Besylate (Amlodipine Besylate) 5 Mg Tab, 5 MG PO DAILY for 30 Days, MG 05/15/17 Atenolol (TENORMIN TABLET) 50 Mg Tb, 1 TAB PO BID, #30 TAB 5 Refills 05/15/17 Information Source: Patient Mode of Arrival: EMS Severity: Mild Timing: Days Duration: Since onset Past Medical History PAST MEDICAL HISTORY: CKF, GERD, HTN, Liver, TIA Surgical History (Other): Hip surgery Family History Family History: Family hx of HTN Social History Smoker: Cigarettes Alcohol: Sober Drugs: Denies Drug Use Lives In: Home Constitutional: reports: weakness; denies: chills, diaphoresis, fatigue, fever, malaise, sweats, others EENTM: denies: blurred vision, double vision, ear bleeding, ear discharge, ear drainage, ear pain, ear ringing, eye pain, eye redness, hearing loss, mouth pain, mouth swelling, nasal discharge, nose bleeding, nose congestion, nose pain, photophobia, tearing, throat pain, throat swelling, voice changes, others Respiratory: denies: cough, hemoptysis, orthopnea, SOB at rest, shortness of breath, SOB with excertion, stridor, wheezing, others Cardiovascular: denies: chest pain, dizzy spells, diaphoresis, Dyspnea on exertion, edema, irregular heart beat, left arm pain, lightheadedness, palpitations, PND, syncope, others Gastrointestinal: denies: abdomen distended, abdominal pain, blood streaked bowels, constipated, diarrhea, dysphagia, difficulty swallowing, hematemesis, melena, nausea, poor appetite, poor fluid intake, rectal bleeding, rectal pain, vomiting, others Genitourinary: denies: burning, dysuria, flank pain, frequency, hematuria, incontinence, penile discharge, penile sore, pain, testicle pain, testicle swelling, urgency, others Neurological: reports: dizziness; denies: fainting, headache, left sided numbness, left sided weakness, numbness, paresthesia, pre-existing deficit, right sided numbness, right sided weakness, seizure, speech problems, tingling, tremors, weakness, others Musculoskeletal: reports: back pain, others (pelvic/hip pain); denies: gout, joint pain, joint swelling, muscle pain, muscle stiffness, neck pain Integumetry: denies: bruises, change in color, change in hair/nails, dryness, laceration, lesions, lumps, rash, wounds, others Allergic/Immunocompromised: denies: Difficulty Healing, Frequent Infections, Hives, Itching, others Hematologic/Lymphatic: denies: anemia, blood clots, easy bleeding, easy bruising, swollen glands, others Endocrine: denies: excessive hunger, excessive sweating, excessive thirst, excessive urination, flushing, intolerance to cold, intolerance to heat, unexplained weight gain, unexplained weight loss, others Psychiatric: denies: anxiety, bipolar disorder, depression, hopeless, panic disorder, schizophrenia, sleepless, suicidal, others All Other Systems: Reviewed and Negative Physical Exam General Appearance: No Apparent Distress, Thin HEENT: Normal ENT Inspection, Pharynx Normal, TMs Normal Neck: Full Range of Motion, Non-Tender, Normal, Normal Inspection Respiratory: Chest Non-Tender, Lungs Clear, No Accessory Muscle Use, No Respiratory Distress, Normal Breath Sounds Cardiovascular: No Edema, No JVD, No Murmur, No Gallop, Normal Peripheral Pulses, Regular Rate/Rhythm Breast Exam: Deferred Gastrointestinal: No Organomegaly, Non Tender, No Pulsatile Mass, Normal Bowel Sounds, Soft Genitalia: Deferred Pelvic: Deferred Rectal: Deferred Extremities: No calf tenderness, Normal capillary refill, Normal inspection, Normal range of motion, Non-tender, No pedal edema Musculoskeletal : Apperance: Normal Neurologic: Alert, electronics manufacturer II-XII nml as Tested, No Motor Deficits, Normal Affect, Normal Mood, No Sensory Deficits Cerebellar Function: Normal Reflexes: Normal Skin: Other (pale) Lymphatic: No Adenopathy Was a procedure done? Was a procedure done?: No EKG EKG : Pulse Rate (adult): 60 Cardiac Rhythm: NSR Differential Dx Considerations may include: pelvic fracture, hip fracture, spine injury, anemia, hypoglycemia, electrolyte disorders, hypovolemia, gib, cva X-Ray, Labs, Meds, VS Vital Signs Date Time Temp Pulse Resp B/P (MAP) Pulse Ox O2 Delivery O2 Flow Rate FiO2 11/3/24 15:17 76 09/21/24 15:00 61 17 89/59 (69) 100 09/21/24 13:37 68 15 98 Room Air* 0 21 09/21/24 13:20 60 09/21/24 13:10 97.6 68 15 98/64 (75) 100 97.6 09/21/24 13:06 97.4 69 14 104/69 (81) 100 09/21/24 12:59 69 Lab Test 09/21/24 13:36 Range/Units White Blood Count 11.6 H 4.4-10.8 10^3/uL Red Blood Count 1.99 L 4.5-5.90 10^6/uL Hemoglobin 6.7 *L 13.5-17.5 g/dL Hematocrit 21.4 L 41.0-53.0 % Mean Corpuscular Volume 107.5 H 80.0-100.0 fL Mean Corpuscular Hemoglobin 33.7 H 28.0-32.0 pg Mean Corpuscular Hemoglobin Concent 31.3 L 32.0-36.0 g/dL Red Cell Distribution Width 15.3 H 11.8-14.3 % Platelet Count 297 140-450 10^3/uL Mean Platelet Volume 7.2 6.9-10.8 fL Neutrophils (%) (Auto) 89.2 H 37.0-80.0 % Lymphocytes (%) (Auto) 7.6 L 10.0-50.0 % Monocytes (%) (Auto) 3.1 0.0-12.0 % Eosinophils (%) (Auto) 0.0 0.0-7.0 % Basophils (%) (Auto) 0.1 0.0-2.0 % Neutrophils # (Auto) 10.4 H 1.6-8.6 10 ^3/uL Lymphocytes # (Auto) 0.9 0.4-5.4 10 ^3/uL Monocytes # (Auto) 0.4 0-1.3 10 ^3/uL Eosinophils # (Auto) 0 0-0.8 10 ^3/uL Basophils # (Auto) 0 0-0.2 10 ^3/uL Nucleated Red Blood Cells 0.0 % Sodium Level 134 L 136-145 mmol/L Potassium Level 4.5 3.5-5.1 mmol/L Chloride Level 107 98-107 mmol/L Carbon Dioxide Level 18 L 20-31 mmol/L Anion Gap 9 5-15 Blood Urea Nitrogen 43 H 9-23 mg/dL Creatinine 1.30 0.700-1.30 mg/dL Glomerular Filtration Rate Calc 60 >90 mL/min BUN/Creatinine Ratio 33.1 H 10.0-20.0 Serum Glucose 183 H 74-106 mg/dL Calcium Level 8.1 L 8.7-10.4 mg/dL Total Bilirubin 0.2 0.2-1.0 mg/dL Aspartate Amino Transferase (AST) 15 13-40 U/L Alanine Aminotransferase (ALT) 13 7-40 U/L Alkaline Phosphatase 94 46-116 U/L Total Protein 4.4 L 5.7-8.2 g/dL Albumin 2.8 L 3.2-4.8 g/dL Current Medications Medications (Trade) Dose Ordered Sig/Dolly Route Start Time Stop Time Status Last Admin Acetaminophen/ Hydrocodone Bitart (Barker 5/325MG Tab) 1 tab ONCE ONCE PO 09/21/24 13:00 09/21/24 13:01 DC 09/21/24 14:22 Sodium Chloride 500 ml @ 500 mls/hr Q1H ONCE IV 09/21/24 15:15 09/21/24 16:14 09/21/24 15:17 [place] [address] Ph: [phone] DIAGNOSTIC IMAGING Diagnostic Imaging Report : [id number] Signed PATIENT: BERTO SIMMONS ACCT: [id number] UNIT: [id number] : 1955 LOC: ER ROOM / BED: / AGE / SEX: 69 / M ADM STATUS: REG ER SERVICE 1305 ORDERING PHYSICIAN: BEATRIZ IBARRA MD PROCEDURE(s): LS2CT - LS SPINE WO CONTRAST REASON: leg weakness ORDER NUMBER(s): [id number], ACCESSION NUMBER(s): [id number] CT LS SPINE WO CONTRAST Date: 09/21/2024 01:52 PM History: leg weakness Comparison: None TECHNIQUE: Multiple axial CT images of the lumbosacral spine were obtained using bone algorithm. Axial and coronal reformatting was done. Bone and soft tissue windows were reviewed. Radiation Dose Information: CT Dose: CTDI volume is 7.21 mGy. Dose-length product is 519.72 mGy*cm FINDINGS: No CT evidence of definite acute fracture, spinal dislocation, or significant appearing acute subluxation is seen. The visualized paraspinal soft tissues are grossly unremarkable. T12-L1 There is no evidence of central spinal canal or neuroforaminal stenosis. Mild compression superior endplate T12 age indeterminate. No bony displacement. No central spinal canal stenosis. L1-L2 There is no evidence of central spinal canal or neuroforaminal stenosis. L2-L3 compression superior endplate of L3 with diffuse annular bulging of the disc hypertrophic arthritic bony changes of the articular facets and to the ligamentum flavum bilaterally with [id number] spinal stenosis. (9mm) L3-L4 mild compression superior endplate of L4. No displaced bony fragments. No central spinal canal stenosis. L4-L5 There is no evidence of central spinal canal or neuroforaminal stenosis. L5-S1 5 mm anterior spondylolisthesis L5-S1 with degenerative disc changes. IMPRESSION: 1. Compression superior endplate of T12-L3 and L4. 2. Mild central spinal stenosis at L3-4. 3. 5 mm anterior spondylolisthesis L5-S1 with degenerative disc changes. All CT scans at this medical facility are performed using dose modulation techniques as appropriate to a performed exam including the following: Automated exposure control was utilized; adjustment of the MA and/or KV according to patient size; and use of iterative reconstruction technique. ATED BY: BERTO GUERRERO Jr., DO DICTATED DATE/TIME: 09/21/241442 SIGNED BY: BERTO GUERRERO Jr., DO SIGNED DATE/TIME: 09/21/241442 CC: [place] [address] Ph: [phone] DIAGNOSTIC IMAGING Diagnostic Imaging Report : [id number] Signed PATIENT: BERTO SIMMONS ACCT: [id number] UNIT: [id number] : 1955 LOC: ER ROOM / BED: / AGE / SEX: 69 / M ADM STATUS: REG ER SERVICE 1305 ORDERING PHYSICIAN: BEATRIZ IBARRA MD PROCEDURE(s): PL2CT - PELVIS WO CONTRAST REASON: fell ORDER NUMBER(s): [id number], ACCESSION NUMBER(s): [id number] Exam: CT PELVIS WO CONTRAST History: fell Comparison Study: None available at time of dictation. Technique: Multidetector CT of the pelvis was performed from iliac crests to pubic symphysis after the administration of intravenous contrast was administered during this examination. Portal venous imaging was obtained. Axial, coronal and sagittal multiplanar reformats were performed by the technologist on a separate workstation. Radiation Dose : CT Dose: CTDI volume is 7.21 mGy. Dose-length product is 519.72 mGy*cm Findings: Visualized bowel: No bowel wall thickening or dilatation. Ascites: Absent Lymphadenopathy: No pelvic or mesenteric lymphadenopathy. Vasculature: The visualized abdominal aorta is normal in size and caliber. Abdominal and pelvic vessels demonstrate normal enhancement. Pelvic Organs: Unremarkable Musculoskeletal: Postop changes internal fixation proximal left femoral fracture left acetabular fracture. Bladder: Unremarkable Soft tissues: Unremarkable. IMPRESSION: 1. No displaced bony fractures. 2. Patient is status post open reduction internal fixation of a proximal left femoral fracture and left acetabular and iliac fracture. 3. No previous studies for comparison. All CT scans at this medical facility are performed using dose modulation techniques as appropriate to a performed exam including the following: Automated exposure control was utilized; adjustment of the MA and/or KV according to p atient size; and use of iterative reconstruction technique. ATED BY: BERTO GUERRERO Jr., DO DICTATED DATE/TIME: 09/21/24 1447 SIGNED BY: BERTO GUERRERO Jr., SIGNED DATE/TIME: 09/21/24 144 CC: Time of 1ST Reevaluation: 13:23 Reevaluation 1ST: Unchanged Time of 2ND Reevaluation: 14:12 Reevaluation 2ND: Improved Patient Education/Counseling: Diagnosis, Treatment Family Education/Counseling: No Family Present Additional Information pt is anemic. rectal exam shows no lesions, but guaiac was positive. pt reports last night was the first time, he noticed the stool was "a little " darker , but he has had any abdominal pain or diarrhea since high school. he consented to transfusion Departure 1 Departure Time of Disposition: 14:14 Impression: Primary Impression: Macrocytic anemia Additional Impressions: Rectal bleed Hip pain Qualified Codes: M25.551 - Pain in right hip; M25.552 - Pain in left hip Back pain Qualified Codes: M54.50 - Low back pain, unspecified Weakness Compression fracture Spinal stenosis Qualified Codes: M48.061 - Spinal stenosis, lumbar region without neurogenic claudication Disposition: ADMITTED INPATIENT Admit to: Tele Condition: Stable Critical Care Note Critical Care Time?: Yes (55 min-critical care time only) Critical care comment: due to real concerns for pt's condition deteriorating, the patient's care required my highest level of attention and prepareness to intervene. i assessed this patient, formulated a plan of care, communicated with medical pe rsonnel,reveiwed data and results,and conversed with [employer] adf consultant, reassessed the patient's condition and response to treatments. total time include at least 50% face-face interactions and does not include any procedures Stability Stability form required: No I personally scribed for BEATRIZ IBARRA MD ([employer]) on 09/21/24 at 13:20. Electronically submitted by Carmen Dwyer ([employer]). I personally scribed for BEATRIZ IBARRA MD ([facility]) on 09/21/24 at 14:51. Electronically submitted by Carmen Dwyer ([employer]). BEATRIZ IBARRA MD Sep 21, 2024 13:20
[2024-09-21 13:52] LABS: Basophils # (auto) 0 10 ^3/uL (0-0.2); Basophils % (auto) 0.1 % (0.0-2.0); Eosinophils # (auto) 0 10 ^3/uL (0-0.8); Hematocrit 21.4 % (41.0-53.0); Lymphocytes # (auto) 0.9 10 ^3/uL (0.4-5.4); Lymphocytes % (auto) 7.6 % (10.0-50.0); Mean Corpuscular Hemoglobin 33.7 pg (28.0-32.0); Mean Corpuscular Hgb Conc. 31.3 g/dL (32.0-36.0); Mean Corpuscular Volume 107.5 fL (80.0-100.0); Monocytes # (auto) 0.4 10 ^3/uL (0-1.3); Monocytes % (auto) 3.1 % (0.0-12.0); Neutrophils # (auto) 10.4 10 ^3/uL (1.6-8.6); Neutrophils % (auto) 89.2 % (37.0-80.0); Platelet Count (auto) 297 10^3/uL (140-450); Red Blood Cells 1.99 10^6/uL (4.5-5.90); Red Cell Distribution Width 15.3 % (11.8-14.3); White Blood Cell 11.6 10^3/uL (4.4-10.8)
[2024-09-21 13:54] LABS: Hemoglobin 6.7 g/dL (13.5-17.5)
[2024-09-21 14:13] LABS: Alanine Aminotransferase 13 U/L (7-40); Albumin 2.8 g/dL (3.2-4.8); Alkaline Phosphatase 94 U/L (46-116); Anion Gap 9 (5-15); Aspartate Aminotransferase 15 U/L (13-40); BUN/Creatinine Ratio 33.1 (10.0-20.0); Bilirubin, Total 0.2 mg/dL (0.2-1.0); Blood Urea Nitrogen 43 mg/dL (9-23); Calcium 8.1 mg/dL (8.7-10.4); Carbon Dioxide 18 mmol/L (20-31); Chloride 107 mmol/L (98-107); Glucose 183 mg/dL (74-106); Potassium 4.5 mmol/L (3.5-5.1); Sodium 134 mmol/L (136-145); Total Protein 4.4 g/dL (5.7-8.2)
[2024-09-21] MEDS: HYDROcodone-ACET 5/325MG TAB PO ONE (14:22)
[2024-09-21] MEDS: MORPHINE SULFATE INJ 2 MG/ml SYRG IV ONE (14:30)
[2024-09-21] MEDS: ONDANSETRON HCL 4 MG/2 ML VIAL IV ONE (14:30)
--- NOTE | 2024-09-21 14:45 | DVH ---
CT LS SPINE WO CONTRAST Date: 09/21/2024 01:52 PM History: leg weakness Comparison: None TECHNIQUE: Multiple axial CT images of the lumbosacral spine were obtained using bone algorithm. Axial and coron al reformatting was done. Bone and soft tissue windows were reviewed. Radiation Dose Information: CT Dose: CTDI volume is 7.21 mGy. Dose-length product is 519.72 mGy*cm FINDINGS: No CT evidence of definite acute fracture, spinal dislocation, or significant appearing acute subluxa tion is seen. The visualized paraspinal soft tissues are grossly unremarkable. T12-L1 There is no evidence of central spinal canal or neuroforaminal stenosis. Mild compression supe rior endplate T12 age indeterminate. No bony displacement. No central spinal canal stenosis. L1-L2 There is no evidence of central spinal canal or neuroforaminal stenosis. L2-L3 compression superior endplate of L3 with diffuse annular bulging of the disc hypertrophic arthr itic bony changes of the articular facets and to the ligamentum flavum bilaterally with [id number] ate spinal stenosis. (9mm) L3-L4 mild compression superior endplate of L4. No displaced bony fragments. No central spinal canal stenosis. L4-L5 There is no evidence of central spinal canal or neuroforaminal stenosis. L5-S1 5 mm anterior spondylolisthesis L5-S1 with degenerative disc changes. IMPRESSION: 1. Compression superior endplate of T12-L3 and L4. 2. Mild central spinal stenosis at L3-4. 3. 5 mm anterior spondylolisthesis L5-S1 with degenerative disc changes. All CT scans at this medical facility are performed using dose modulation techniques as appropriate t o a performed exam including the following: Automated exposure control was utilized; adjustment of th e MA and/or KV according to patient size; and use of iterative reconstruction technique.
--- NOTE | 2024-09-21 14:49 | DVH ---
Exam: CT PELVIS WO CONTRAST History: fell Comparison Study: None available at time of dictation. Technique: Multidetector CT of the pelvis was performed from iliac crests to pubic symphysis after th e administration of intravenous contrast was administered during this examination. Portal venous imag ing was obtained. Axial, coronal and sagittal multiplanar reformats were performed by the technologis t on a separate workstation. Radiation Dose : CT Dose: CTDI volume is 7.21 mGy. Dose-length product is 519.72 mGy*cm Findings: Visualized bowel: No bowel wall thickening or dilatation. Ascites: Absent Lymphadenopathy: No pelvic or mesenteric lymphadenopathy. Vasculature: The visualized abdominal aorta is normal in size and caliber. Abdominal and pelvic vesse ls demonstrate normal enhancement. Pelvic Organs: Unremarkable Musculoskeletal: Postop changes internal fixation proximal left femoral fracture left acetabular fracture. Bladder: Unremarkable Soft tissues: Unremarkable. IMPRESSION: 1. No displaced bony fractures. 2. Patient is status post open reduction internal fixation of a proximal left femoral fracture and le ft acetabular and iliac fracture. 3. No previous studies for comparison. All CT scans at this medical facility are performed using dose modulation techniques as appropriate t o a performed exam including the following: Automated exposure control was utilized; adjustment of th e MA and/or KV according to patient size; and use of iterative reconstruction technique.
[2024-09-21] MEDS: SODIUM CHLORIDE 0.9% 500 ML IV ONE (15:17)
[2024-09-21] MEDS: diphenhdrAMINE HCL 25 MG CAP PO ONE (20:45)
[2024-09-21] MEDS: HYDROcodone-ACET 10/325MG TAB PO ONE (20:50)
[2024-09-21] MEDS ORDERED: MORPHINE SULFATE INJ 2 MG/ml SYRG IV PRN (21:15)
[2024-09-21] MEDS ORDERED: ONDANSETRON HCL 4 MG/2 ML VIAL IV PRN (21:15)
[2024-09-21] MEDS ORDERED: ENOXAPARIN SOD 40 MG/0.4 ML SYRINGE SC SCH (21:15)
[2024-09-21] MEDS ORDERED: NITROGLYCERIN 0.4 MG SL TAB SL PRN (21:15)
--- NOTE | 2024-09-21 21:35 | DVHHPRES ---
History of Present Illness Resident Creating Document: MEÑO MONTERROSO RESIDENT History of Present Illness Jones Walls is a 69 years old male with a PMH of HTN, TIA, CKD presented to the ED with the chief complaints of weakness and dizziness since Sunday. Patient reported Sunday morning he is sitting on the bed and walk from the bed and he certainly will dizziness and fell backwards on the bed without losing consciousness. Patient also reported he is feeling very weak and having difficulty on weight-bearing. Patient does report fresh rectal bleed. But p atient denies nausea, vomiting, fever, chest pain, abdominal pain, nausea and other associated symptoms Past Medical History TIA, HTN, COPD, GERD Past Surgical History Left hip fracture repair Family History Breast cancer in mother Past Social History Lives alone. Vaping. Six pack beer per day. No marijuana abuse Review of Systems Constitutional: Yes: Weakness Eyes: No: Pain, Vision change, Conjunctivae inflammation, Eyelid inflammation, Other, Redness ENT: No: Ear pain, Ear discharge, Nose pain, Nose discharge, Nose congestion, Mouth pain, Mouth swelling, Throat pain, Throat swelling, Other Respiratory: No: Cough, Dry, Shortness of breath, SOB with excertion, Wheezing, Hemoptysis, Pleuritic Pain, Sputum, Wheezing, Other Cardiovascular: Other (Dizziness) Gastrointestinal: Other (Rectal bleed) Genitourinary: No Dysuria, No Frequency, No Incontinence, No Hematuria, No Retention, No Other Musculoskeletal: back pain Skin: No: Rash, Lesions, Jaundice, Bruising, Other Neurological: No: Weakness, Numbness, Incoordination, Change in speech, Confusion, Seizures, Other Allergies: Coded Allergies: NO KNOWN ALLERGIES (Unverified , 05/14/17) Medications Current Medications Medications Dose Ordered Sig/Dolly Route Start Time Stop Time Status Last Admin Dose Admin Acetaminophen/ Hydrocodone Bitart 1 tab TID PO 09/22/24 07:00 Sodium Chloride 10 ml Q8HR IV 09/21/24 22:00 Acetaminophen 325 mg Q4HP PRN PO 09/21/24 21:15 Ondansetron HCl 4 mg Q4HP PRN IV 09/21/24 21:15 Morphine Sulfate 2 mg Q4HPRN PRN IV 09/21/24 21:15 Enoxaparin Sodium 40 mg DAILY SC 09/21/24 21:15 Nitroglycerin 0.4 mg Q5MINP PRN SL 09/21/24 21:15 Morphine Sulfate 2 mg Q30M PRN IV 09/21/24 21:15 Exam Vital Signs Vital Signs Date Time Temp Pulse Resp B/P (MAP) Pulse Ox O2 Delivery O2 Flow Rate FiO2 09/21/24 20:45 97.7 60 16 101/60 97.7 09/21/24 19:30 97 09/21/24 19:30 Room Air* 0 21 Exam Pt is lying on bed General Appearance: Alert, Oriented X3, Cooperative, Not in acute distress HEENT: Atraumatic, Mucous membranes moist/pink Respiratory: Clear to auscultation, Normal air movement, No added sounds Cardiovascular: Regular rate, Normal S1, Normal S2, No murmurs Abdominal: Active bowel sounds, Soft, no distention, no tenderness Extremities: No edema, Normal pulses, No tenderness/swelling Skin: No Significant rash, except past surgical scars Neuro: Normal speech, sensorimotor deficits none Psych/Mental Status: Mental status NL, Mood NL Rectal exam: Anal tags noted, sphincter tone normal, no masses palpable in the vault Nurse was there as sharperone during examination Labs/Xrays Labs Test 09/21/24 13:36 Range/Units White Blood Count 11.6 H 4.4-10.8 10^3/uL Red Blood Count 1.99 L 4.5-5.90 10^6/uL Hemoglobin 6.7 *L 13.5-17.5 g/dL Hematocrit 21.4 L 41.0-53.0 % Mean Corpuscular Volume 107.5 H 80.0-100.0 fL Mean Corpuscular Hemoglobin 33.7 H 28.0-32.0 pg Mean Corpuscular Hemoglobin Concent 31.3 L 32.0-36.0 g/dL Red Cell Distribution Width 15.3 H 11.8-14.3 % Platelet Count 297 140-450 10^3/uL Mean Platelet Volume 7.2 6.9-10.8 fL Neutrophils (%) (Auto) 89.2 H 37.0-80.0 % Lymphocytes (%) (Auto) 7.6 L 10.0-50.0 % Monocytes (%) (Auto) 3.1 0.0-12.0 % Eosinophils (%) (Auto) 0.0 0.0-7.0 % Basophils (%) (Auto) 0.1 0.0-2.0 % Neutrophils # (Auto) 10.4 H 1.6-8.6 10 ^3/uL Lymphocytes # (Auto) 0.9 0.4-5.4 10 ^3/uL Monocytes # (Auto) 0.4 0-1.3 10 ^3/uL Eosinophils # (Auto) 0 0-0.8 10 ^3/uL Basophils # (Auto) 0 0-0.2 10 ^3/uL Nucleated Red Blood Cells 0.0 % Sodium Level 134 L 136-145 mmol/L Potassium Level 4.5 3.5-5.1 mmol/L Chloride Level 107 98-107 mmol/L Carbon Dioxide Level 18 L 20-31 mmol/L Anion Gap 9 5-15 Blood Urea Nitrogen 43 H 9-23 mg/dL Creatinine 1.30 0.700-1.30 mg/dL Glomerular Filtration Rate Calc 60 >90 mL/min BUN/Creatinine Ratio 33.1 H 10.0-20.0 Serum Glucose 183 H 74-106 mg/dL Calcium Level 8.1 L 8.7-10.4 mg/dL Total Bilirubin 0.2 0.2-1.0 mg/dL Aspartate Amino Transferase (AST) 15 13-40 U/L Alanine Aminotransferase (ALT) 13 7-40 U/L Alkaline Phosphatase 94 46-116 U/L Total Protein 4.4 L 5.7-8.2 g/dL Albumin 2.8 L 3.2-4.8 g/dL Assessment/Plan Assessment/Plan # Dizziness likely due to Anemia # microcytic, hypochromic anemia -hemoglobin on admission was 6.7 -transfused 2 PRBCs -ordered carotid Doppler and echocardiogram -continuously monitored lab # Lower GI bleed -pelvic ultrasound showed no acute changes -ordered CT abdominal pelvis -monitor lab - rectal exam showed Anal tags noted, sphincter tone normal, no masses palpable in the vault # alcohol abuse disorder -counseled regarding cessation for more than 17 minutes # GERD - Protonix # spinal stenosis L3-4 # compression fractures T12-L3 and L4 # anterior spondylolisthesis L5-S1 with degenerative disc changes -evident on lumbar CT -outpatient follow up # severe malnutrition with BMI 14.6 -dietary consulted # ? Chronic pancreatitis -CT findings suggestive pancreatitis SCDs for now Protonix Cardiac diet Reconciled home meds Goals of care discussed with the patient for more than 27 minutes: Full code status Case management discussed with Dr. Morris, patient and nurse Plan discussed with: Patient My Orders Orders - MEÑO MONTERROSO RESIDENT Procedure Category Date Status Time Admit ADMIT 09/21/24 Transmitted 21:03 Allergies JANETH 09/21/24 In Process 21:03 Code Status CODE 09/21/24 Transmitted 21:03 Sodium Chloride Lock PHA 09/21/24 In Process (Saline Lock Ns) 22:00 Acetaminophen Tablet PHA 09/21/24 In Process (Tylenol Tablet) 21:15 Ondansetron Hcl PHA 09/21/24 In Process (Zofran) 21:15 Complete Blood Count LAB 09/22/24 Verified 04:00 Comprehensive LAB 09/22/24 Verified Metabolic Panel 04:00 Cardiac DIET 09/22/24 Transmitted Diet-2gna,Lofat,Lochol Breakfast Echo 2d Mode Cardiac US 09/21/24 Logged DOP 21:03 Morphine Sulfate PHA 09/21/24 In Process Injection 21:15 Nitroglycerin PHA 09/21/24 In Process Sublingual (Ntrostat 21:15 Morphine Sulfate PHA 09/21/24 In Process Injection 21:15 Oxygen By Nasal RT 09/21/24 Transmitted Cannula 21:03 Stat Ekg For Chest JANETH 09/21/24 In Process Pain 21:03 Notify Of Changes JANETH 09/21/24 In Process From Base 21:03 Channel Manager For JANETH 09/21/24 In Process 24 Hours 21:03 Emergency Dysrhythmia JANETH 09/21/24 In Process Protocol 21:03 Rhythm Strips Once JANETH 09/21/24 In Process Every Shift 21:03 Blood Alcohol LAB 09/21/24 Logged 21:03 Complete Blood Count LAB 09/21/24 Logged 21:03 Comprehensive LAB 09/21/24 Logged Metabolic Panel 21:03 Drug Screen LAB 09/21/24 Logged 21:[address] 09/21/24 Logged Contrast 21:12 Amlodipine Tablet PHA 09/22/24 Verified (Norvasc Tablet) 10:00 Cyclobenzaprine PHA 09/21/24 Verified Tablet (Flexeril 22:00 Lorazepam Tablet PHA 09/21/24 Verified (Ativan Tablet) 22:00 (Nf) Thiamine Hcl PHA 09/22/24 Verified (Thiamine) 10:00 Pantoprazole PHA 09/21/24 Verified (Protonix) 21:45 Date of Service: Sep 21, 2024 Billing Provider: SUZIE MORRIS MD Common Visit Codes: [id number] INP/OBS CARE (HIGH) Secondary Visit Codes: [id number] CARE PLAN 30 MINUTES FORREST MONTERROSOJEREMIE RESIDENT Sep 21, 2024 21:35 SUZIE MORRIS MD Sep 23, 2024 09:27
[2024-09-21] MEDS: CYCLOBENZAPRINE HCL 10 MG TAB PO SCH (22:00)
[2024-09-21] MEDS: LORazepam 0.5 MG TAB PO SCH (22:00)
[2024-09-21] MEDS: PANTOPRAZOLE 40 MG/10 ML VIAL INJ IV SCH (22:04)
[2024-09-21] MEDS: SODIUM CHLOR 0.9% PF (SALINE LOCK) 10ML VIAL/SYR IV SCH (22:04)
--- NOTE | 2024-09-21 22:21 | DVH ---
Exam: CT ABDOMEN WITHOUT CONTRAST History: GI bleed Comparison Study: None available at time of dictation. TECHNIQUE: Multidetector CT of the abdomen was performed from lung bases to pubic symphysis. Imaging was performed without IV contrast. Axial, coronal and sagittal multiplanar reformats were obtained fr om the axial data set by the technologist. Radiation Dose Information: CT Dose: CTDI volume is 5.07 mGy. Dose-length product is 243.58 mGy*cm FINDINGS: Evaluation of solid organs is limited due to lack of intravenous contrast use. Findings: Lung Bases: No acute or significant lung base finding. Normal heart size. No pleural or pericardial effusion. Liver: The liver is normal in size. No focal lesions. Gallbladder and Biliary Tree: Unremarkable Spleen: Unremarkable Pancreas: Calcifications throughout the pancreas suggesting changes of chronic pancreatitis. Adrenal Glands: Unremarkable Kidneys: Kidneys are grossly normal without calculi or hydronephrosis. Bladder: Grossly unremarkable for degree of distention. Bowel: The stomach is grossly normal in appearance. Small bowel and colon are normal in caliber and d istribution. The appendix is not visualized; however, no secondary findings of acute appendicitis id entified. Ascites: Absent Lymphadenopathy: No mesenteric, retroperitoneal or periportal lymphadenopathy. Abdominal Wall and Mesentery: Unremarkable. Vasculature: The visualized abdominal aorta is normal in size and caliber. Evaluation of abdominal a nd pelvic vessels is limited due to lack of intravenous contrast. Pelvic Organs: Unremarkable Musculoskeletal: No aggressive focal bony lesions, acute fractures or dislocation. Findings to sugges t postop changes from a open reduction internal fixation of the left acetabular, left proximal femur and left pelvis fracture. Internal fixation screws are in place. Old healed compression fractures of Soft tissues: Unremarkable IMPRESSION: 1. No calcified gallstones seen. 2. No nephrolithiasis or hydronephrosis. 3. No findings to suggest bowel obstruction. 4. Findings of chronic pancreatitis. 5. Postop changes left hip and pelvis. Radiation optimization: All CT scans at this facility use at least one of these dose optimization joyce hniques: automated exposure control mA and/or kV adjustment per patient size (includes targeted exam s where dose is matched to clinical indication) or iterative reconstruction.
[2024-09-21] MEDS ORDERED: ACET300T57 PO (23:06)
[2024-09-21] MEDS ORDERED: AMLO1TAB23 PO (23:06)
[2024-09-21] MEDS ORDERED: BUSP10TA31 PO (23:06)
[2024-09-21] MEDS ORDERED: ATEN50TA PO (23:06)
[2024-09-21] MEDS ORDERED: PANC3000 PO (23:06)
[2024-09-21] MEDS ORDERED: HYDR-3682 PO (23:06)
[2024-09-21] MEDS ORDERED: CYCL-614 PO (23:06)
[2024-09-22] VITALS (9 sets, daily range): BP systolic 82–107; BP diastolic 56–74; PULSE 60–89; RESP 15–20; TEMP 97.5–98.9; O2SAT 93–100
[2024-09-22 02:59] LABS: Basophils # (auto) 0 10 ^3/uL (0-0.2); Basophils % (auto) 0.3 % (0.0-2.0); Eosinophils # (auto) 0 10 ^3/uL (0-0.8); Eosinophils % (auto) 0.1 % (0.0-7.0); Hematocrit 35.9 % (41.0-53.0); Hemoglobin 11.2 g/dL (13.5-17.5); Lymphocytes # (auto) 1.9 10 ^3/uL (0.4-5.4); Mean Corpuscular Hemoglobin 32.5 pg (28.0-32.0); Mean Corpuscular Hgb Conc. 31.2 g/dL (32.0-36.0); Mean Corpuscular Volume 104.3 fL (80.0-100.0); Monocytes # (auto) 0.4 10 ^3/uL (0-1.3); Monocytes % (auto) 3.3 % (0.0-12.0); Neutrophils # (auto) 10.6 10 ^3/uL (1.6-8.6); Neutrophils % (auto) 81.3 % (37.0-80.0); Nucleated Red Blood Cells % 0.1 %; Platelet Count (auto) 201 10^3/uL (140-450); Red Blood Cells 3.44 10^6/uL (4.5-5.90); Red Cell Distribution Width 19.1 % (11.8-14.3)
[2024-09-22 03:12] LABS: Alanine Aminotransferase 14 U/L (7-40); Alkaline Phosphatase 102 U/L (46-116); Anion Gap 6 (5-15); Aspartate Aminotransferase 19 U/L (13-40); BUN/Creatinine Ratio 30.4 (10.0-20.0); Bilirubin, Total 0.6 mg/dL (0.2-1.0); Calcium 7.8 mg/dL (8.7-10.4); Carbon Dioxide 18 mmol/L (20-31); Chloride 110 mmol/L (98-107); Glucose 166 mg/dL (74-106); Potassium 4.2 mmol/L (3.5-5.1); Sodium 134 mmol/L (136-145); Total Protein 4.7 g/dL (5.7-8.2)
[2024-09-22 03:18] LABS: INR 1.64 (0.9-1.15); Prothrombin Time 16.8 sec (9.3-11.8)
[2024-09-22 03:45] LABS: Blood Urea Nitrogen 31 mg/dL (9-23)
[2024-09-22 03:46] LABS: Blood Alcohol < 3.0 mg/dL (<10)
[2024-09-22] MEDS: HYDROcodone-ACET 10/325MG TAB PO SCH (06:03)
[2024-09-22] MEDS: THIAMINE HCL 100 MG TAB PO SCH (09:33)
[2024-09-22] MEDS: amLODIPine BESYLATE 5 MG TAB PO SCH (09:48)
[2024-09-22] MEDS: ATENOLOL 25 MG TAB PO SCH (09:49)
--- NOTE | 2024-09-22 09:55 | DVH ---
CAROTID ARTERIAL DOPPLER CLINICAL HISTORY: DIZZINESS TECHNIQUE: Doppler study of bilateral carotid/vertebral arteries were performed. Comparison: None FINDINGS: There are calcified atherosclerotic changes in the proximal left internal carotid artery. The bilater al common carotid, external and internal carotid arteries appear patent without hemodynamically signi ficant stenosis. There is no significant flow limiting plaque formation identified.The spectral wave forms and peak systolic velocities are within normal limits. Antegrade flow is present within the vertebral arteries with appropriate velocities and waveforms. Right ICA/CCA PSV ratio = 1.6. Left ICA/CCA PSV ratio = 1.2 . IMPRESSION: 1. No hemodynamically significant stenosis within the carotid arteries. HS:Y
[2024-09-22 10:00] LABS: Urine Bacteria None Seen /hpf (None Seen)
[2024-09-22] MEDS ORDERED: THIAMINE HCL 50 MG PO SCH (10:00)
[2024-09-22 10:12] LABS: Urine Blood Negative /uL (Negative); Urine Clarity Clear (Clear); Urine Color Light-Yellow (Yellow); Urine Protein, UAD Negative (Negative); Urine Specific Gravity 1.018 (1.001-1.035); Urine Urobilinogen Normal (Negative); Urine WBC <1 /hpf (0 - 3); Urine pH 6.5 (5.0-9.0)
[2024-09-22 10:20] LABS: Amphetamine Screen, Urine Neg (NEGATIVE)
[2024-09-22 10:21] LABS: Barbiturate Scree,Urine Neg (NEGATIVE); Benzodiazephine Screen, Urine Neg (NEGATIVE); Cocaine Screen, Urine Neg (NEGATIVE)
[2024-09-22 10:22] LABS: Cannabinoid Screen, Urine Neg (NEGATIVE); Opiate Scree,Urine Pos (NEGATIVE); Phencyclidine Screen, Urine Neg (NEGATIVE)
[2024-09-22 11:45] LABS: Hepatitis B Surface Antigen Negative (Negative)
[2024-09-22 12:06] LABS: Hepatitis C Antibody Negative (Negative)
[2024-09-22] MEDS: SODIUM CHLORIDE 0.9% 250 ML IV ONE ×2 (12:45→16:30)
--- NOTE | 2024-09-22 13:08 | DVHINCON2 ---
GI Consult Consult Note GI consult note Date of Consultation: 09/22/2024 Chief Complaint: Melena, possible scope Referring Physician: Dr. Armenta H&P: 69-year-old male admitted with weakness and dizziness since Sunday, status post fall, without losing consciousness Patient denies abdominal pain. No nausea or vomiting. No hematemesis Patient has noticed black stool with traces of red blood for the last few days Patient admits to alcohol for many years, about six pack of beer every day. Patient has lost 30-40 lb in the past two months Patient has history of GERD. No NSAIDs use Status post EGD and colonoscopy 10 years ago, WNL per patient Past Medical History: TIA, HTN, COPD, GERD Past Surgical History: Left hip fracture repair 1993 Social History: Lives alone. Vaping. Six pack beer per day. No marijuana abuse Family History: Noncontributory Review of Systems: Constitutional: no fever, chill, weight loss HEENT: no eye pain, no hearing loss, no oral lesion, no scleral icterus Heart: no chest pain, no chest pressure Lung: no cough, no dyspnea with exertion Abdomen: see HPI Physical exam: General: NAD, AAOX3 HEENT: no scleral icterus Chest: lung tiwari clear to auscultation Heart: RRR, no murmur Abdomen: non-distended, no tenderness to palpation, +BS Labs: Labs Test 09/22/24 09:00 09/22/24 02:42 Range/Units Urine Color Light-yellow Yellow Urine Clarity Clear Clear Urine pH 6.5 5.0-9.0 Urine Specific Gravette 1.018 1.001-1.035 Urine Protein Negative Negative Urine Ketones Negative Negative Urine Blood Negative Negative /uL Urine Nitrite Negative Negative Urine Bilirubin Negative Negative Urine Urobilinogen Normal Negative mg/dL Urine Leukocyte Esterase Negative Negative /uL Urine RBC <1 0 - 3 /hpf Urine WBC <1 0 - 3 /hpf Urine Squamous Epithelial Cells None seen <5 /hpf Urine Bacteria None seen None Seen /hpf Urine Glucose Normal Normal mg/dL Urine Opiates Screen Pos NEGATIVE Urine Fentanyl Screen Neg NEGATIVE Urine Barbiturates Screen Neg NEGATIVE Urine Phencyclidine Screen Neg NEGATIVE Urine Amphetamines Screen Neg NEGATIVE Urine Benzodiazepines Screen Neg NEGATIVE Urine Cocaine Screen Neg NEGATIVE Urine Cannabinoids Screen Neg NEGATIVE White Blood Count 13.0 H 4.4-10.8 10^3/uL Red Blood Count 3.44 L 4.5-5.90 10^6/uL Hemoglobin 11.2 #L 13.5-17.5 g/dL Hematocrit 35.9 #L 41.0-53.0 % Mean Corpuscular Volume 104.3 H 80.0-100.0 fL Mean Corpuscular Hemoglobin 32.5 H 28.0-32.0 pg Mean Corpuscular Hemoglobin Concent 31.2 L 32.0-36.0 g/dL Red Cell Distribution Width 19.1 H 11.8-14.3 % Platelet Count 201 140-450 10^3/uL Mean Platelet Volume 7.8 6.9-10.8 fL Neutrophils (%) (Auto) 81.3 H 37.0-80.0 % Lymphocytes (%) (Auto) 15.0 10.0-50.0 % Monocytes (%) (Auto) 3.3 0.0-12.0 % Eosinophils (%) (Auto) 0.1 0.0-7.0 % Basophils (%) (Auto) 0.3 0.0-2.0 % Neutrophils # (Auto) 10.6 H 1.6-8.6 10 ^3/uL Lymphocytes # (Auto) 1.9 0.4-5.4 10 ^3/uL Monocytes # (Auto) 0.4 0-1.3 10 ^3/uL Eosinophils # (Auto) 0 0-0.8 10 ^3/uL Basophils # (Auto) 0 0-0.2 10 ^3/uL Nucleated Red Blood Cells 0.1 % Prothrombin Time 16.8 H 9.3-11.8 sec Prothrombin Time INR 1.64 H 0.9-1.15 Activated Partial Thromboplast Time 29.0 24.5-34.5 SEC Sodium Level 134 L 136-145 mmol/L Potassium Level 4.2 3.5-5.1 mmol/L Chloride Level 110 H 98-107 mmol/L Carbon Dioxide Level 18 L 20-31 mmol/L Anion Gap 6 5-15 Blood Urea Nitrogen 31 #H 9-23 mg/dL Creatinine 1.02 0.700-1.30 mg/dL Glomerular Filtration Rate Calc 80 >90 mL/min BUN/Creatinine Ratio 30.4 H 10.0-20.0 Serum Glucose 166 H 74-106 mg/dL Hemoglobin A1c 5.0 <5.7 % A1C Calcium Level 7.8 L 8.7-10.4 mg/dL Total Bilirubin 0.6 0.2-1.0 mg/dL Aspartate Amino Transferase (AST) 19 13-40 U/L Alanine Aminotransferase (ALT) 14 7-40 U/L Alkaline Phosphatase 102 46-116 U/L Total Protein 4.7 L 5.7-8.2 g/dL Albumin 3.0 L 3.2-4.8 g/dL Lipase 17 12-53 U/L Carcinoembryonic Antigen 2.31 <=5.0 ng/mL Vitamin B12 Level 333 211-911 pg/mL Vitamin D 25-Hydroxy 28.5 L 30.0-100 ng/mL Thyroid Stimulating Hormone (TSH) 1.92 0.55-4.78 uIU/mL Plasma/Serum Blood Alcohol < 3.0 <10 mg/dL Hepatitis B Surface Antigen Negative Negative Hepatitis C Antibody Negative Negative Imaging: CT abdomen IMPRESSION: 1. No calcified gallstones seen. 2. No nephrolithiasis or hydronephrosis. 3. No findings to suggest bowel obstruction. 4. Findings of chronic pancreatitis. 5. Postop changes left hip and pelvis. CT pelvis IMPRESSION: 1. No displaced bony fractures. 2. Patient is status post open reduction internal fixation of a proximal left femoral fracture and left acetabular and iliac fracture. 3. No previous studies for comparison. Assessment: Severe anemia Acute GI bleed Chronic pancreatitis Heavy alcohol use GERD Weight loss Plan: Discussed with Dr. Leblanc - Pt will be scheduled for an EGD in 24-48 hours. Pt was informed of the risks (bleeding, infection, perforation, reaction to sedation medications and cardiopulmonary arrest) and benefit and is agreeable to undergo the procedures. Recheck labs, transfuse if hemoglobin less than seven Protonix Vitamin K Discussed extensively to DC alcohol Thank you for this consult Date of Service: Sep 22, 2024 Billing Provider: CAMILA BUSCH Common Visit Codes: CONSULT ONLY Consultation Codes: [id number] CONSULT <60MIN CAMILA BUSCH Sep 22, 2024 13:08
--- NOTE | 2024-09-22 14:05 | DVHPNRES ---
Progress Note Date Seen: Sep 22, 2024 Resident Creating Document: CLARENCE NIXON RESIDENT Has the PT tested + for MRSA If YES, has PT been informed?: No Medical Necessity Reason Pt with a Central, PICC or Fol: No Subjective Review of Systems Patient was seen at the bedside, extensive questions answered was done and information gathered. Patient reports: No new complaints Changes from previous H/P or p: No Changes Review of Systems: HEENT:Normal, CVS:Abnormal (Dizziness), RESPIRATORY:Normal, GI:Abnormal (Melena and hematochezia), :Normal, MSK:Abnormal (Cachectic, rapid weight loss), NEURO:Normal Objective vital signs Vital Sign Date Time Temp Pulse Resp B/P (MAP) Pulse Ox O2 Delivery O2 Flow Rate FiO2 09/22/24 13:00 98.9 75 16 82/56 (65) 93 98.9 09/22/24 10:48 Room Air* 0 21 Total Intake and Output 09/21/24 09/21/24 09/22/24 15:00 23:00 07:00 Intake Total 1700 ml 476 ml Output Total 0 ml 300 ml Balance 1700 ml 176 ml medications Current Medications Medications Dose Ordered Sig/Dolly Route Start Time Stop Time Status Last Admin Dose Admin Acetaminophen/ Hydrocodone Bitart 1 tab TID PO 09/22/24 07:00 09/22/24 06:03 1 TAB Sodium Chloride 10 ml Q8HR IV 09/21/24 22:00 09/22/24 05:24 10 ML Acetaminophen 325 mg Q4HP PRN PO 09/21/24 21:15 Ondansetron HCl 4 mg Q4HP PRN IV 09/21/24 21:15 Morphine Sulfate 2 mg Q4HPRN PRN IV 09/21/24 21:15 Nitroglycerin 0.4 mg Q5MINP PRN SL 09/21/24 21:15 Morphine Sulfate 2 mg Q30M PRN IV 09/21/24 21:15 Amlodipine Besylate 5 mg DAILY PO 09/22/24 10:00 Cyclobenzaprine HCl 5 mg TID PO 09/21/24 22:00 09/22/24 05:21 5 MG Lorazepam 0.5 mg BID PO 09/21/24 22:00 09/22/24 09:32 0.5 MG Pantoprazole Sodium 40 mg DAILY IV 09/21/24 21:45 09/22/24 09:34 40 MG Thiamine HCl 50 mg DAILY PO 09/22/24 10:00 09/22/24 09:33 50 MG Atenolol 50 mg BID PO 09/22/24 10:00 Examination: GENERAL:Normal (Cachectic, code for the HPI), HEENT:Normal (Temporal wasting), NECK:Normal (Left clavicular fracture history, deformed painless), LUNGS:Normal (Bilateral clear breath sound), CVS:Normal, ABDOMEN:Normal (Denies pain), MSK:Normal (Bilateral lower leg and upper extremities cachectic, almost no muscle mass.), SKIN:Abnormal (Bilateral lower buttock region redness blanchable), NEURO:Normal (AAO x4) laboratory and microbiology Laboratory Tests 09/22/24 02:42 Test 09/22/24 02:42 Range/Units Serum Glucose 166 H 74-106 mg/dL Labs and/or images reviewed: Labs reviewed by me, Image(s) reviewed by me Problem List/Assessment/Plan Problem List/Assessment/Plan Hospital Course: Mr. Walls, a 69-year-old gentleman with past medical history significant for hypertension, GERD, COPD, TIA, left hip fracture status post repair, admitted with recurrent melena, recent episode of hematochezia, weakness, weight loss, dizziness and related mechanical fall without losing consciousness. patient also complains of overall feeling very weak, and having extreme difficulty on weight-bearing and low back pain. Denies nausea , vomiting, fever, chest pain, abdominal pain, nausea, diarrhea or any other Systemic symptoms. # Lower Upper + GI bleed: GI on board, IV b.i.d. hemoglobin on admission 6.7 status post 2 PRBC increased the hemoglobin. H&H stable, follow up CBC. # Dizziness /lightheadedness: likely due to anemia versus 17 minute counseling and plan was provided. # Alcohol use disorder: Patient reported having for almost 40 years of 6 packs beer each day. Alcohol cessation counseling done. Patient on CIWA as needed Ativan for withdrawal symptoms # Degenerative disc disease: spinal stenosis at the level of L3-L4 , comprehend fractures T12 L3-L4, anterior spondylolisthesis L5-S1 with degenerative disc changes, pain management, Continue. # Microcytic hypochromic anemia: Likely due to GI bleed. Transfusion cut off for the patient is 7 grams/dL # Chronic pancreatitis: CT findings suggestive of pancreatitis but the lipase normal likely chronic. We will look for the need of pancreatic enzyme replacement based on how patient tolerates diet. # Cachexia and severe malnutrition with BMI of 14.6: Patient lost weight so 40 lb almost in last 2-3 months. It could be underlying cancer, extensive cancer workup pending. nutrition consult done. we will check for HIV panel , cancer panel. # History of colonic polyp: Patient mentioned 4-5 years back her colonoscopy was found to have polyp but then follow up # history of lung nodules: Patient did not follow for repeats chest CT, we will repeat chest CT # Known history of internal hemorrhoids: at home he uses the steroid cream and laxatives. # history of essential hypertension: On amlodipine and atenolol at home. # in-hospital hypotension: Stopped the antihypertensives and IV fluid, keeping the map over 65 # GERD: Protonix continue # chronic back pain: Patient has low back pain and follows pain management with Dr. Cain outpatient khan. # SCD for DVT prophylaxis Barriers to discharge: medical workup ongoing. we will consider discharge. Patient lives at home by himself. Case discussed with Dr. Snyder. Code status: patient wants to DNR/DNI, ongoing discussion. Until unless the patient is providing the documents be provided, presumptively full code. p atient is Complex patient care discussion needed total 39 minutes. Plan discussed with: Patient, Other (Primary team) CC Plasma Assessment Blood Product Administration S: [id number] Date of Service: Sep 22, 2024 Billing Provider: KELY SNYDER MD Common Visit Codes: [id number] INP/OBS CARE(HIGH) Secondary Visit Codes: [id number] CARE PLAN 30 MINUTES Coding Comment Comment I saw and evaluated the patient. I reviewed the residents note and agree with findings and plan as documented in the residents note. More than 30 minutes spent in advanced care planning, including discussing code status, medical decision maker, goals of care and disposition planning. Code status DNR DNI CLARENCE NIXON RESIDENT Sep 22, 2024 14:05 KELY SNYDER MD Sep 22, 2024 21:22
--- NOTE | 2024-09-22 16:45 | DVHSR ---
APPROVED REPORT EXAM: Two-dimensional and M-mode echocardiogram with Doppler and color Doppler. Blood Pressure: 107/74 mmHg INDICATION Dizziness and Vertigo RISK FACTORS Height: 5'6", Weight: 100 DIMENSIONS LVDd3.8 (3.8-5.7cm)LA (2D)3.8 (1.9-4.0cm)Aortic Root (2.0-3.7cm) LVDs2.6 (2.5-4.0cm)LA (MM) (1.9-4.0cm)Aortic Cusp Exc (1.5-2.0cm) EF (%) 61.0 (55-70%)Rt. Atrium3.5 (1.9-4.0cm)Asc. Aorta cm IVSd0.5 (0.7-1.1cm)RV (D) (1.8-2.4cm) Mitral Valve MitralMitral Stenosis E wave0.61m/sMV Mean GR.mmHg A wave0.69m/sMV Peak GR.mmHg E/A ratio0.92D MVAcm2 DECEL [id number] 1/2 Timems Aortic Valve Aortic ValveAortic Stenosis V11.00m/Tuan Mean GR.3mmHg V21.14m/Tuan Peak GR.5mmHg LVOT Diameter2.0 (1.8-2.4cm)Doppler AVA2.75cm2 AI P 1/2 Gfrh286.00ms Tricuspid Valve TR Velocity2.14m/s [id number] Other Information Quality : Technically LimitedRhythm : Technically limited study due to body habitus. Conclusion Normal left ventricular size and dimension. Normal left ventricular systolic function estimated ejec tion fraction 55%. There is a grade 1 diastolic dysfunction. Normal right ventricular size and dimension. Normal right ventricular systolic function. Normal biatrial size and dimension. There is mild aortic valve sclerosis. Mild aortic valve regurgitation Normal mitral valve structure function. Normal tricuspid valve structure and function. The pulmonary valve is grossly normal. No pericardial effusion.
[2024-09-22] MEDS: PHYTONADIONE (VIT K)10 MG/ML 1ML VIAL SUBCUT ONE (16:46)
[2024-09-22] MEDS ORDERED: LORazepam 2MG/ML-1ML VIAL IV PRN (19:00)
[2024-09-22 19:44] LABS: Basophils # (auto) 0 10 ^3/uL (0-0.2); Basophils % (auto) 0.2 % (0.0-2.0); Eosinophils # (auto) 0 10 ^3/uL (0-0.8); Eosinophils % (auto) 0.2 % (0.0-7.0); Hematocrit 29.2 % (41.0-53.0); Lymphocytes # (auto) 1.3 10 ^3/uL (0.4-5.4); Lymphocytes % (auto) 15.3 % (10.0-50.0); Mean Corpuscular Hemoglobin 33.4 pg (28.0-32.0); Mean Corpuscular Hgb Conc. 34.3 g/dL (32.0-36.0); Mean Corpuscular Volume 97.2 fL (80.0-100.0); Monocytes # (auto) 0.3 10 ^3/uL (0-1.3); Monocytes % (auto) 3.6 % (0.0-12.0); Neutrophils # (auto) 7.1 10 ^3/uL (1.6-8.6); Neutrophils % (auto) 80.7 % (37.0-80.0); Platelet Count (auto) 174 10^3/uL (140-450); Red Blood Cells 3.01 10^6/uL (4.5-5.90); Red Cell Distribution Width 16.6 % (11.8-14.3); White Blood Cell 8.7 10^3/uL (4.4-10.8)
[2024-09-22] MEDS: FOLIC ACID 1 MG TAB PO ONE (19:48)
[2024-09-22] MEDS: THIAMINE HCL 100 MG TAB PO ONE (19:48)
[2024-09-22 19:58] LABS: Magnesium 1.9 mg/dL (1.6-2.6)
[2024-09-22 19:59] LABS: Phosphorus 1.8 mg/dL (2.4-5.1)
[2024-09-22] MEDS: NEUTRA-PHOS TABLET PO ONE (21:39)
[2024-09-22] MEDS: PANTOPRAZOLE 40 MG/10 ML VIAL INJ IV SCH (21:40)
[2024-09-23] VITALS (8 sets, daily range): BP systolic 92–109; BP diastolic 64–69; PULSE 60–101; RESP 12–20; TEMP 97.7–98.3; O2SAT 96–100
[2024-09-23] MEDS: ACETAMINOPHEN 325 MG TAB PO PRN (00:25)
[2024-09-23 06:30] LABS: Basophils # (auto) 0 10 ^3/uL (0-0.2); Basophils % (auto) 0.2 % (0.0-2.0); Eosinophils # (auto) 0.1 10 ^3/uL (0-0.8); Eosinophils % (auto) 0.9 % (0.0-7.0); Hematocrit 25.7 % (41.0-53.0); Hemoglobin 8.8 g/dL (13.5-17.5); Lymphocytes # (auto) 1.5 10 ^3/uL (0.4-5.4); Lymphocytes % (auto) 21.2 % (10.0-50.0); Mean Corpuscular Hemoglobin 33.5 pg (28.0-32.0); Mean Corpuscular Hgb Conc. 34.2 g/dL (32.0-36.0); Mean Corpuscular Volume 98.1 fL (80.0-100.0); Monocytes # (auto) 0.4 10 ^3/uL (0-1.3); Monocytes % (auto) 5.3 % (0.0-12.0); Neutrophils # (auto) 5.1 10 ^3/uL (1.6-8.6); Neutrophils % (auto) 72.4 % (37.0-80.0); Nucleated Red Blood Cells % 0.1 %; Platelet Count (auto) 144 10^3/uL (140-450); Red Blood Cells 2.62 10^6/uL (4.5-5.90); Red Cell Distribution Width 16.9 % (11.8-14.3)
[2024-09-23 06:39] LABS: INR 1.04 (0.9-1.15)
[2024-09-23 06:46] LABS: Albumin 2.5 g/dL (3.2-4.8); Alkaline Phosphatase 112 U/L (46-116); Anion Gap 7 (5-15); Aspartate Aminotransferase 8 U/L (13-40); BUN/Creatinine Ratio 20.4 (10.0-20.0); Blood Urea Nitrogen 19 mg/dL (9-23); Calcium 8.2 mg/dL (8.7-10.4); Carbon Dioxide 20 mmol/L (20-31); Chloride 107 mmol/L (98-107); Glucose 91 mg/dL (74-106); Magnesium 1.9 mg/dL (1.6-2.6); Potassium 3.8 mmol/L (3.5-5.1); Sodium 134 mmol/L (136-145)
[2024-09-23 06:47] LABS: Bilirubin, Total 0.4 mg/dL (0.2-1.0); Total Protein 4.1 g/dL (5.7-8.2)
[2024-09-23 06:49] LABS: Alanine Aminotransferase < 9 U/L (7-40)
--- NOTE | 2024-09-23 07:02 | DVH ---
CHEST RADIOGRAPH Indication:For procedure Technique: Single frontal view of the chest was obtained Comparison: CHEST PORTABLE on DOS: 01/29/20 FINDINGS: Lines and Tubes: None Lungs: No focal consolidation. Pleura: No effusion. No pneumothorax. Cardiomediastinal contours: Unremarkable Bones: No acute osseous abnormality. IMPRESSION: 1. No acute cardiopulmonary disease.
[2024-09-23] MEDS: FOLIC ACID 1 MG TAB PO SCH (09:23)
[2024-09-23] MEDS: THIAMINE HCL 100 MG TAB PO SCH (09:23)
[2024-09-23] MEDS: LIDOCAINE 5% TOPICAL PATCH TOP SCH (09:31)
[2024-09-23] MEDS: NICOTINE 14 MG/24HR TOPICAL PATCH TD ONE (11:00)
[2024-09-23] MEDS: NICOTINE 7MG/24HR TOPICAL PATCH TD SCH (11:47)
--- NOTE | 2024-09-23 14:23 | DVHOP2 ---
Operative Report DATE OF OPERATION: 09/23/24 PROCEDURE: Upper Endoscopy with biopsy. PREOPERATIVE INDICATION: The patient is a 69 -year-old male undergoing endoscopy for melena and anemia POSTOPERATIVE DIAGNOSES: 1. Patient had a deep 2-3 cm pre-pyloric antral gastric ulcer at the eight to 10 o'clock position with a central red dot but no visible vessel no active bleeding Reggie classification C 2. Mild gastritis 3. 2 cm sliding-type hiatal hernia with minimal grade a erosive esophagitis 4. Otherwise normal examination up to the 2nd and 3rd part of the duodenum with good bile drainage and no active bleeding and there were no varices PROCEDURE PERFORMED BY: Richard Leblanc GI NURSE: Eduardo SCOPE: Olympus videoendoscope. ASA CLASS: 3 PREOPERATIVE MEDICATIONS: MAC sedation; Hemanth Ornelas PROCEDURE IN DETAIL: After obtaining an informed consent, the patient was placed on left lateral decubitus position. The patient was then sedated with the above medications. A bite block was placed between his teeth. The endoscope was then passed through the oropharynx, into the esophagus, and through the stomach and pylorus up to the second and third part of the duodenum. The endoscope was then withdrawn. The second and third part of duodenum and duodenal bulb were normal. There was a 2-3 cm prepyloric deep antral gastric ulcer extending from about 8 o'clock to 10 o'clock position with a central red dot This was Reggie classification C with no visible vessel and no active bleeding. There were surrounding gastritis. On retroflexion the fundus cardia and angularis were normal. Duodenal and gastric biopsies were obtained. The endoscope was then withdrawn into the distal esophagus where the patient had a 2 cm sliding-type hiatal hernia with minimal grade a erosive esophagitis GE junction biopsies were obtained. The remaining distal and proximal esophagus and oropharynx were unremarkable The patient tolerated the procedure well without difficulty. COMPLICATIONS : None SPECIMENS: Duodenal biopsies Gastric biopsies GE junction biopsies DISPOSITION: Transfer back to the floor Stable PLAN: 1. Await for biopsy result 2. Will place pt on Protonix 40 mg bid 3. Carafate 1 g p.o. 4 times a day 4. Start full liquid diet advance to soft mechanical 5. DC aspirin NSAIDs smoking alcohol 6. Outpatient follow up with me in 4-6 weeks to review results discuss further management and to discuss elective screening colonoscopy RICHARD LEBLANC MD Sep 23, 2024 14:23
[2024-09-23] MEDS ORDERED: LIDOCAINE 2% (LOCAL ANESTH.) PF 5ml SDV ONE (15:00)
--- NOTE | 2024-09-23 16:18 | DVHPNRES ---
Progress Note Date Seen: Sep 23, 2024 Resident Creating Document: CHANEL BROWNE RESIDENT Has the PT tested + for MRSA If YES, has PT been informed?: No Medical Necessity Reason Pt with a Central, PICC or Fol: No Subjective Review of Systems Mr. Walls, a 69-year-old gentleman with past medical history significant for hypertension, GERD, COPD, TIA, left hip fracture status post repair, admitted with recurrent melena, recent episode of hematochezia, weakness, weight loss, dizziness and related mechanical fall without losing consciousness. patient also complains of overall feeling very weak, and having extreme difficulty on weight-bearing and low back pain. Denies nausea , vomiting, fever, chest pain, abdominal pain, nausea, diarrhea or any other Systemic symptoms. Patient was seen at the bedside, extensive questions answered was done and information gathered. Patient denies any active ongoing complaint or discomfort. Patient requested a nicotine patch to help with his nicotine cravings. Objective vital signs Vital Sign Date Time Temp Pulse Resp B/P (MAP) Pulse Ox O2 Delivery O2 Flow Rate FiO2 09/23/24 14:45 69 12 94/65 (75) 98 09/23/24 14:15 97.8 97.8 09/23/24 14:14 Mask 8.0 100 Total Intake and Output 09/22/24 09/22/24 09/23/24 15:00 23:00 07:00 Intake Total 250 ml 750 ml 0 ml Output Total 300 ml 600 ml 900 ml Balance -50 ml 150 ml -900 ml medications Current Medications Medications Dose Ordered Sig/Dolly Route Start Time Stop Time Status Last Admin Dose Admin Acetaminophen/ Hydrocodone Bitart 1 tab TID PO 09/22/24 07:00 09/23/24 15:20 1 TAB Sodium Chloride 10 ml Q8HR IV 09/21/24 22:00 09/23/24 15:22 10 ML Acetaminophen 325 mg Q4HP PRN PO 09/21/24 21:15 09/23/24 09:24 325 MG Ondansetron HCl 4 mg Q4HP PRN IV 09/21/24 21:15 Morphine Sulfate 2 mg Q4HPRN PRN IV 09/21/24 21:15 Nitroglycerin 0.4 mg Q5MINP PRN SL 09/21/24 21:15 Morphine Sulfate 2 mg Q30M PRN IV 09/21/24 21:15 Cyclobenzaprine HCl 5 mg TID PO 09/21/24 22:00 09/23/24 15:20 5 MG Lorazepam 0.5 mg BID PO 09/21/24 22:00 09/23/24 09:24 0.5 MG Thiamine HCl 100 mg DAILY PO 09/23/24 10:00 09/23/24 09:23 100 MG Folic Acid 1 mg DAILY PO 09/23/24 10:00 09/23/24 09:23 1 MG Lorazepam 1 mg Q2HPRN PRN IV 09/22/24 19:00 Pantoprazole Sodium 40 mg BID IV 09/22/24 22:00 09/23/24 09:23 40 MG Lidocaine 1 patch DAILY TOP 09/23/24 10:00 09/23/24 09:31 1 PATCH Nicotine 1 patch DAILY TD 09/23/24 10:00 09/23/24 11:47 1 PATCH Nicotine 1 patch DAILY TD 09/24/24 10:00 Sucralfate 1 gm QID@0600,1130,1700,2200 PO 09/23/24 17:00 Examination GENERAL:Normal (Cachectic, code for the HPI), HEENT:Normal (Temporal wasting), NECK:Normal (Left clavicular fracture history, deformed painless), LUNGS:Normal (Bilateral clear breath sound), CVS:Normal, ABDOMEN:Normal (Denies pain), MSK:Normal (Bilateral lower leg and upper extremities cachectic, almost no muscle mass.), SKIN:Abnormal (Bilateral lower buttock region redness blanchable), NEURO:Normal (AAO x4) laboratory and microbiology Laboratory Tests 09/23/24 05:04 Test 09/23/24 05:04 Range/Units Serum Glucose 91 74-106 mg/dL Problem List/Assessment/Plan Problem List/Assessment/Plan # Lower Upper + GI bleed: GI on board, IV b.i.d. hemoglobin on admission 6.7 status post 2 PRBC increased the hemoglobin. H&H stable, follow up CBC. Patient completed EGD today which showed: A deep 2-3 cm pre-pyloric antral gastric ulcer at the 8 o'clock position with a central red dot but no visible vessel, no active bleeding: Force classification C. Mild gastritis. 2 cm sliding-type hiatal hernia with minimal grade a erosive esophagitis. Otherwise normal examination up to the 2nd and 3rd part of the duodenum with good bile drainage and no active bleeding and no active areas. - Protonix 40 mg b.i.d., Carafate 1 g 4 times a day - placed on a full liquid diet # Dizziness /lightheadedness: likely due to anemia versus 17 minute counseling and plan was provided. # Alcohol use disorder: Patient reported having for almost 40 years of 6 packs beer each day. Alcohol cessation counseling done. Patient on CIWA as needed Ativan for withdrawal symptoms # Degenerative disc disease: spinal stenosis at the level of L3-L4 , comprehend fractures T12 L3-L4, anterior spondylolisthesis L5-S1 with degenerative disc changes, pain management, Continue. # Microcytic hypochromic anemia: Likely due to GI bleed. Transfusion cut off for the patient is 7 grams/dL # Chronic pancreatitis: CT findings suggestive of pancreatitis but the lipase normal likely chronic. We will look for the need of pancreatic enzyme replacement based on how patient tolerates diet. # Cachexia and severe malnutrition with BMI of 14.6: Patient lost weight so 40 lb almost in last 2-3 months. It could be underlying cancer, extensive cancer workup pending. nutrition consult done. we will check for HIV panel , cancer panel. # History of colonic polyp: Patient mentioned 4-5 years back her colonoscopy was found to have polyp but then follow up # history of lung nodules: Patient did not follow for repeats chest CT, we will repeat chest CT # Known history of internal hemorrhoids: at home he uses the steroid cream and laxatives. # history of essential hypertension: On amlodipine and atenolol at home. # in-hospital hypotension: Stopped the antihypertensives and IV fluid, keeping the map over 65 # GERD: Protonix continue # chronic back pain: Patient has low back pain and follows pain management with Dr. Cain outpatient khan. # SCD for DVT prophylaxis Barriers to discharge: medical workup ongoing. we will consider discharge. Patient lives at home by himself. Case discussed with Dr. Snyder. Code status: patient wants to DNR/DNI, ongoing discussion. Until unless the patient is providing the documents be provided, presumptively full code. p atient is Complex patient care discussion needed total 39 minutes. Plan discussed with: Patient, Other (RN) My Orders My Orders Orders - CHANEL BROWNE RESIDENT Procedure Category Date Status Time Nicotine 14mg/24hr PHA 09/24/24 In Process (Nicoderm 14mg/24hr) 10:00 Hemoglobin & LAB 09/23/24 Logged Hematocrit 15:49 Dietary Evaluation Review Comments: Advance diet to 2gNa texture as tolerated after his GI procedures. Avoid alocohol. accomondate his likes and dislikes. Expected Outcomes/Goals: improved nutriton status, gradual weight gain. CC Plasma Assessment Blood Product Administration S: [id number] Date of Service: Sep 23, 2024 Billing Provider: KELY SNYDER MD Common Visit Codes: [id number] INP/OBS CARE(HIGH) Coding Comment Comment I saw and evaluated the patient. I reviewed the residents note and agree with findings and plan as documented in the residents note. CHANEL BROWNE RESIDENT Sep 23, 2024 16:18 KELY SNYDER MD Sep 23, 2024 20:42
[2024-09-23 17:01] LABS: Hematocrit 29.1 % (41.0-53.0); Hemoglobin 9.7 g/dL (13.5-17.5)
[2024-09-23] MEDS: SUCRALFATE 1 GM/10 ML ORAL SUSP PO SCH (18:38)
[2024-09-24] VITALS (9 sets, daily range): BP systolic 94–126; BP diastolic 62–82; PULSE 76–105; RESP 16–18; TEMP 97.4–98.7; O2SAT 95–100
[2024-09-24 07:31] LABS: Basophils # (auto) 0 10 ^3/uL (0-0.2); Basophils % (auto) 0.3 % (0.0-2.0); Eosinophils # (auto) 0.1 10 ^3/uL (0-0.8); Eosinophils % (auto) 0.9 % (0.0-7.0); Hematocrit 28.2 % (41.0-53.0); Hemoglobin 9.5 g/dL (13.5-17.5); Lymphocytes # (auto) 1.1 10 ^3/uL (0.4-5.4); Lymphocytes % (auto) 15.3 % (10.0-50.0); Mean Corpuscular Hemoglobin 32.8 pg (28.0-32.0); Mean Corpuscular Hgb Conc. 33.5 g/dL (32.0-36.0); Mean Corpuscular Volume 97.9 fL (80.0-100.0); Monocytes # (auto) 0.4 10 ^3/uL (0-1.3); Neutrophils # (auto) 5.6 10 ^3/uL (1.6-8.6); Neutrophils % (auto) 78.5 % (37.0-80.0); Nucleated Red Blood Cells % 0.1 %; Platelet Count (auto) 183 10^3/uL (140-450); Red Blood Cells 2.88 10^6/uL (4.5-5.90); Red Cell Distribution Width 16.4 % (11.8-14.3); White Blood Cell 7.2 10^3/uL (4.4-10.8)
[2024-09-24 07:39] LABS: Chloride 107 mmol/L (98-107); Potassium 4.1 mmol/L (3.5-5.1); Sodium 136 mmol/L (136-145)
[2024-09-24 07:40] LABS: Anion Gap 4 (5-15); Carbon Dioxide 25 mmol/L (20-31)
[2024-09-24 07:41] LABS: Calcium 8.4 mg/dL (8.7-10.4)
[2024-09-24 07:45] LABS: BUN/Creatinine Ratio 17.7 (10.0-20.0); Blood Urea Nitrogen 20 mg/dL (9-23); Glucose 103 mg/dL (74-106)
[2024-09-24] MEDS: MORPHINE SULFATE INJ 2 MG/ml SYRG IV PRN (09:55)
[2024-09-24] MEDS ORDERED: NICOTINE 14 MG/24HR TOPICAL PATCH TD SCH (10:00)
--- NOTE | 2024-09-24 13:54 | DVHPN2 ---
Progress Note - Dictate Date Seen: Sep 24, 2024 Has the PT tested + for MRSA If YES, has PT been informed?: No Medical Necessity Reason Pt with a Central, PICC or Fol: No Subjective Patient seen at bedside He is sitting up in bed and tolerating a soft mechanical diet Patient likes the food There was no further melena or GI bleeding; hemoglobin stable at 9.5 Patient's recent falls could likely have been related to the anemia Patient stated the Tylenol does not work for his pain and that is why he takes NSAIDs vital signs Vital Sign Date Time Temp Pulse Resp B/P (MAP) Pulse Ox O2 Delivery O2 Flow Rate FiO2 09/24/24 11:40 97.4 100 17 109/72 (84) 100 97.4 09/24/24 08:00 Room Air* 0 21 Total Intake and Output 09/23/24 09/23/24 09/24/24 15:00 23:00 07:00 Intake Total 100 ml 0 ml 850 ml Output Total 800 ml 450 ml Balance 100 ml -800 ml 400 ml medications Current Medications Medications Dose Ordered Sig/Dolly Route Start Time Stop Time Status Last Admin Dose Admin Acetaminophen/ Hydrocodone Bitart 1 tab TID PO 09/22/24 07:00 09/24/24 13:25 1 TAB Sodium Chloride 10 ml Q8HR IV 09/21/24 22:00 09/24/24 13:24 10 ML Acetaminophen 325 mg Q4HP PRN PO 09/21/24 21:15 09/23/24 09:24 325 MG Ondansetron HCl 4 mg Q4HP PRN IV 09/21/24 21:15 Morphine Sulfate 2 mg Q4HPRN PRN IV 09/21/24 21:15 09/24/24 09:55 2 MG Nitroglycerin 0.4 mg Q5MINP PRN SL 09/21/24 21:15 Morphine Sulfate 2 mg Q30M PRN IV 09/21/24 21:15 Cyclobenzaprine HCl 5 mg TID PO 09/21/24 22:00 09/24/24 13:24 5 MG Lorazepam 0.5 mg BID PO 09/21/24 22:00 09/24/24 09:53 0.5 MG Thiamine HCl 100 mg DAILY PO 09/23/24 10:00 09/24/24 09:53 100 MG Folic Acid 1 mg DAILY PO 09/23/24 10:00 09/24/24 09:53 1 MG Lorazepam 1 mg Q2HPRN PRN IV 09/22/24 19:00 Pantoprazole Sodium 40 mg BID IV 09/22/24 22:00 09/24/24 09:52 40 MG Lidocaine 1 patch DAILY TOP 09/23/24 10:00 09/24/24 09:53 1 PATCH Nicotine 1 patch DAILY TD 09/23/24 10:00 09/24/24 09:53 1 PATCH Sucralfate 1 gm QID@0600,1130,1700,2200 PO 09/23/24 17:00 09/24/24 11:20 1 GM objective General: NAD, AAOX3 HEENT: no scleral icterus; mild pallor Chest: lung tiwari clear to auscultation Heart: RRR, no murmur Abdomen: non-distended, no tenderness to palpation, +BS laboratory and microbiology Laboratory Tests 09/24/24 06:49 Test 09/24/24 06:49 Range/Units Serum Glucose 103 74-106 mg/dL Problems(with codes): (1) Melena (2) Gastric ulcer (3) Anemia Prognosis Plan Advance diet as tolerated Protonix 40 mg p.o. twice a day Carafate 1 g p.o. twice a day Patient was advised to DC aspirin and NSAIDs Tylenol as needed for pain If the patient does require to need NSAIDs in the future he should always take PPI to protect his stomach Outpatient follow up with me in 4-6 weeks for ongoing medical management including discussion of elective colonoscopy Dietary Evaluation Review Comments: Advance diet to 2gNa texture as tolerated after his GI procedures. Avoid alocohol. accomondate his likes and dislikes. Expected Outcomes/Goals: improved nutriton status, gradual weight gain. Plan discussed with: Patient CC Plasma Assessment Blood Product Administration S: [id number] RICHARD RETANA MD Sep 24, 2024 13:54
--- NOTE | 2024-09-24 16:39 | DVHPNRES ---
Progress Note Date Seen: Sep 24, 2024 Resident Creating Document: CHANEL BROWNE RESIDENT Has the PT tested + for MRSA If YES, has PT been informed?: No Medical Necessity Reason Pt with a Central, PICC or Fol: No Subjective Review of Systems Mr. Walls, a 69-year-old gentleman with past medical history significant for hypertension, GERD, COPD, TIA, left hip fracture status post repair, admitted with recurrent melena, recent episode of hematochezia, weakness, weight loss, dizziness and related mechanical fall without losing consciousness. patient also complains of overall feeling very weak, and having extreme difficulty on weight-bearing and low back pain. Denies nausea , vomiting, fever, chest pain, abdominal pain, nausea, diarrhea or any other Systemic symptoms. Patient was seen at the bedside, extensive questions answered was done and information gathered. Patient denies any active ongoing complaint or discomfort. Patient requested a nicotine patch to help with his nicotine cravings. Patient notes increasing left hip pain, however is able to bear weight. Objective vital signs Vital Sign Date Time Temp Pulse Resp B/P (MAP) Pulse Ox O2 Delivery O2 Flow Rate FiO2 09/24/24 11:40 97.4 100 17 109/72 (84) 100 97.4 09/24/24 08:00 Room Air* 0 21 Total Intake and Output 09/23/24 09/23/24 09/24/24 15:00 23:00 07:00 Intake Total 100 ml 0 ml 850 ml Output Total 800 ml 450 ml Balance 100 ml -800 ml 400 ml medications Current Medications Medications Dose Ordered Sig/Dolly Route Start Time Stop Time Status Last Admin Dose Admin Acetaminophen/ Hydrocodone Bitart 1 tab TID PO 09/22/24 07:00 09/24/24 13:25 1 TAB Sodium Chloride 10 ml Q8HR IV 09/21/24 22:00 09/24/24 13:24 10 ML Acetaminophen 325 mg Q4HP PRN PO 09/21/24 21:15 09/23/24 09:24 325 MG Ondansetron HCl 4 mg Q4HP PRN IV 09/21/24 21:15 Morphine Sulfate 2 mg Q4HPRN PRN IV 09/21/24 21:15 09/24/24 09:55 2 MG Nitroglycerin 0.4 mg Q5MINP PRN SL 09/21/24 21:15 Morphine Sulfate 2 mg Q30M PRN IV 09/21/24 21:15 Cyclobenzaprine HCl 5 mg TID PO 09/21/24 22:00 09/24/24 13:24 5 MG Lorazepam 0.5 mg BID PO 09/21/24 22:00 09/24/24 09:53 0.5 MG Thiamine HCl 100 mg DAILY PO 09/23/24 10:00 09/24/24 09:53 100 MG Folic Acid 1 mg DAILY PO 09/23/24 10:00 09/24/24 09:53 1 MG Lorazepam 1 mg Q2HPRN PRN IV 09/22/24 19:00 Pantoprazole Sodium 40 mg BID IV 09/22/24 22:00 09/24/24 09:52 40 MG Lidocaine 1 patch DAILY TOP 09/23/24 10:00 09/24/24 09:53 1 PATCH Nicotine 1 patch DAILY TD 09/23/24 10:00 09/24/24 09:53 1 PATCH Sucralfate 1 gm QID@0600,1130,1700,2200 PO 09/23/24 17:00 09/24/24 11:20 1 GM Examination GENERAL:Normal (Cachectic, code for the HPI), HEENT:Normal (Temporal wasting), NECK:Normal (Left clavicular fracture history, deformed painless), LUNGS:Normal (Bilateral clear breath sound), CVS:Normal, ABDOMEN:Normal (Denies pain), MSK:Normal (Bilateral lower leg and upper extremities cachectic, almost no muscle mass.), SKIN:Abnormal (Bilateral lower buttock region redness blanchable), NEURO:Normal (AAO x4) laboratory and microbiology Laboratory Tests 09/24/24 06:49 Test 09/24/24 06:49 Range/Units Serum Glucose 103 74-106 mg/dL Labs and/or images reviewed: Labs reviewed by me, Image(s) reviewed by me Problem List/Assessment/Plan Problem List/Assessment/Plan # Lower Upper + GI bleed: GI on board, IV b.i.d. hemoglobin on admission 6.7 status post 2 PRBC increased the hemoglobin. H&H stable, follow up CBC. Patient completed EGD today which showed: A deep 2-3 cm pre-pyloric antral gastric ulcer at the 8 o'clock position with a central red dot but no visible vessel, no active bleeding: Force classification C. Mild gastritis. 2 cm sliding-type hiatal hernia with minimal grade a erosive esophagitis. Otherwise normal examination up to the 2nd and 3rd part of the duodenum with good bile drainage and no active bleeding and no active areas. - Protonix 40 mg b.i.d., Carafate 1 g 4 times a day - placed on a mechanical soft diet today on 09/24/2024 - PT request for service # Dizziness /lightheadedness: likely due to anemia versus 17 minute counseling and plan was provided. # Alcohol use disorder: Patient reported having for almost 40 years of 6 packs beer each day. Alcohol cessation counseling done. Patient on CIWA as needed Ativan for withdrawal symptoms # Degenerative disc disease: spinal stenosis at the level of L3-L4 , comprehend fractures T12 L3-L4, anterior spondylolisthesis L5-S1 with degenerative disc changes, pain management, Continue. # Microcytic hypochromic anemia: Likely due to GI bleed. Transfusion cut off for the patient is 7 grams/dL # Chronic pancreatitis: CT findings suggestive of pancreatitis but the lipase normal likely chronic. We will look for the need of pancreatic enzyme replacement based on how patient tolerates diet. # Cachexia and severe malnutrition with BMI of 14.6: Patient lost weight so 40 lb almost in last 2-3 months. It could be underlying cancer, extensive cancer workup pending. nutrition consult done. we will check for HIV panel , cancer panel. # History of colonic polyp: Patient mentioned 4-5 years back her colonoscopy was found to have polyp but then follow up # history of lung nodules: Patient did not follow for repeats chest CT, we will repeat chest CT # Known history of internal hemorrhoids: at home he uses the steroid cream and laxatives. # history of essential hypertension: On amlodipine and atenolol at home. # in-hospital hypotension: Stopped the antihypertensives and IV fluid, keeping the map over 65 # GERD: Protonix continue # chronic back pain: Patient has low back pain and follows pain management with Dr. Payton khan. # SCD for DVT prophylaxis Barriers to discharge: medical workup ongoing. we will consider discharge. Patient lives at home by himself. Case discussed with Dr. Snyder. Code status: patient wants to DNR/DNI Plan discussed with: Patient, Other (RN) My Orders My Orders Orders - CHANEL BROWNE RESIDENT Procedure Category Date Status Time Pt Request For Service PT 09/24/24 Logged 10:02 Dietary Evaluation Review Comments: Advance diet to 2gNa texture as tolerated after his GI procedures. Avoid alocohol. accomondate his likes and dislikes. Expected Outcomes/Goals: improved nutriton status, gradual weight gain. CC Plasma Assessment Blood Product Administration S: [id number] Date of Service: Sep 24, 2024 Billing Provider: KELY SNYDER MD Common Visit Codes: [id number] INP/OBS CARE(HIGH) Coding Comment Comment I saw and evaluated the patient. I reviewed the residents note and agree with findings and plan as documented in the residents note. CHANEL BROWNE RESIDENT Sep 24, 2024 16:39 KELY SNYDER MD Sep 24, 2024 21:20
[2024-09-25 01:00] VITALS: BP 104/72; PULSE 85; RESP 16; TEMP 97.9; O2SAT 99
[2024-09-25 05:00] VITALS: BP 108/70; PULSE 89; RESP 18; TEMP 98.2; O2SAT 98
[2024-09-25 05:53] LABS: Basophils # (auto) 0 10 ^3/uL (0-0.2); Basophils % (auto) 0.3 % (0.0-2.0); Eosinophils # (auto) 0.1 10 ^3/uL (0-0.8); Eosinophils % (auto) 1.5 % (0.0-7.0); Hemoglobin 8.9 g/dL (13.5-17.5); Lymphocytes # (auto) 1.1 10 ^3/uL (0.4-5.4); Lymphocytes % (auto) 15.7 % (10.0-50.0); Mean Corpuscular Hemoglobin 32.4 pg (28.0-32.0); Monocytes # (auto) 0.5 10 ^3/uL (0-1.3); Monocytes % (auto) 7.1 % (0.0-12.0); Neutrophils # (auto) 5.1 10 ^3/uL (1.6-8.6); Neutrophils % (auto) 75.4 % (37.0-80.0); Platelet Count (auto) 194 10^3/uL (140-450); Red Blood Cells 2.76 10^6/uL (4.5-5.90); Red Cell Distribution Width 16.4 % (11.8-14.3); White Blood Cell 6.7 10^3/uL (4.4-10.8)
--- NOTE | 2024-09-25 07:40 | DVHPN2 ---
Progress Note - Dictate Date Seen: Sep 25, 2024 Has the PT tested + for MRSA If YES, has PT been informed?: No Medical Necessity Reason Pt with a Central, PICC or Fol: No Subjective Patient was having anxiety and hip pain There was no further GI bleeding ; hemoglobin 8.9 He is tolerating a soft mechanical diet vital signs Vital Sign Date Time Temp Pulse Resp B/P (MAP) Pulse Ox O2 Delivery O2 Flow Rate FiO2 09/25/24 05:00 98.2 89 18 108/70 (83) 98 98.2 09/24/24 20:11 Room Air* 0 21 Total Intake and Output 09/24/24 09/24/24 09/25/24 14:59 22:59 06:59 Intake Total 850 ml 500 ml Output Total 500 ml 600 ml 650 ml Balance -500 ml 250 ml -150 ml medications Current Medications Medications Dose Ordered Sig/Dolly Route Start Time Stop Time Status Last Admin Dose Admin Acetaminophen/ Hydrocodone Bitart 1 tab TID PO 09/22/24 07:00 09/25/24 05:09 1 TAB Sodium Chloride 10 ml Q8HR IV 09/21/24 22:00 09/25/24 05:03 10 ML Acetaminophen 325 mg Q4HP PRN PO 09/21/24 21:15 09/23/24 09:24 325 MG Ondansetron HCl 4 mg Q4HP PRN IV 09/21/24 21:15 Morphine Sulfate 2 mg Q4HPRN PRN IV 09/21/24 21:15 09/24/24 17:06 2 MG Nitroglycerin 0.4 mg Q5MINP PRN SL 09/21/24 21:15 Morphine Sulfate 2 mg Q30M PRN IV 09/21/24 21:15 Cyclobenzaprine HCl 5 mg TID PO 09/21/24 22:00 09/25/24 05:09 5 MG Lorazepam 0.5 mg BID PO 09/21/24 22:00 09/24/24 21:15 0.5 MG Thiamine HCl 100 mg DAILY PO 09/23/24 10:00 09/24/24 09:53 100 MG Folic Acid 1 mg DAILY PO 09/23/24 10:00 09/24/24 09:53 1 MG Lorazepam 1 mg Q2HPRN PRN IV 09/22/24 19:00 Pantoprazole Sodium 40 mg BID IV 09/22/24 22:00 09/24/24 21:15 40 MG Lidocaine 1 patch DAILY TOP 09/23/24 10:00 09/24/24 09:53 1 PATCH Nicotine 1 patch DAILY TD 09/23/24 10:00 09/24/24 09:53 1 PATCH Sucralfate 1 gm QID@0600,1130,1700,2200 PO 09/23/24 17:00 09/25/24 05:09 1 GM objective General: NAD, AAOX3 HEENT: no scleral icterus; mild pallor Chest: lung tiwari clear to auscultation Heart: RRR, no murmur Abdomen: non-distended, no tenderness to palpation, +BS laboratory and microbiology Laboratory Tests 09/25/24 04:45 09/24/24 06:49 Test 09/24/24 06:49 Range/Units Serum Glucose 103 74-106 mg/dL Problems(with codes): (1) Leukocytosis (2) Cachexia (3) Macrocytic anemia (4) Melena (5) Gastric ulcer (6) Chronic pain disorder Prognosis Plan Patient is stable from GI point of view Continue Protonix 40 mg p.o. twice a day Carafate 1 g p.o. twice a day DC aspirin NSAIDs Patient was seeking other pain medicines Outpatient follow up with me next available appointment for elective colonoscopy Patient stated he was just getting settled in the hospital and liked the food Dietary Evaluation Review Comments: Advance diet to 2gNa texture as tolerated after his GI procedures. Avoid alocohol. accomondate his likes and dislikes. Expected Outcomes/Goals: improved nutriton status, gradual weight gain. Plan discussed with: Patient CC Plasma Assessment Blood Product Administration S: [id number] RICHARD RETANA MD Sep 25, 2024 07:40
[2024-09-25 08:00] VITALS: PULSE 106; RESP 19; O2SAT 96
--- NOTE | 2024-09-25 08:19 | DVHPNRES ---
Progress Note Date Seen: Sep 25, 2024 Has the PT tested + for MRSA If YES, has PT been informed?: No Medical Necessity Reason Pt with a Central, PICC or Fol: No Objective vital signs Vital Sign Date Time Temp Pulse Resp B/P (MAP) Pulse Ox O2 Delivery O2 Flow Rate FiO2 09/25/24 05:00 98.2 89 18 108/70 (83) 98 98.2 09/24/24 20:11 Room Air* 0 21 Total Intake and Output 09/24/24 09/24/24 09/25/24 15:00 23:00 07:00 Intake Total 850 ml 500 ml Output Total 500 ml 600 ml 650 ml Balance -500 ml 250 ml -150 ml medications Current Medications Medications Dose Ordered Sig/Dolly Route Start Time Stop Time Status Last Admin Dose Admin Acetaminophen/ Hydrocodone Bitart 1 tab TID PO 09/22/24 07:00 09/25/24 05:09 1 TAB Sodium Chloride 10 ml Q8HR IV 09/21/24 22:00 09/25/24 05:03 10 ML Acetaminophen 325 mg Q4HP PRN PO 09/21/24 21:15 09/23/24 09:24 325 MG Ondansetron HCl 4 mg Q4HP PRN IV 09/21/24 21:15 Morphine Sulfate 2 mg Q4HPRN PRN IV 09/21/24 21:15 09/24/24 17:06 2 MG Nitroglycerin 0.4 mg Q5MINP PRN SL 09/21/24 21:15 Morphine Sulfate 2 mg Q30M PRN IV 09/21/24 21:15 Cyclobenzaprine HCl 5 mg TID PO 09/21/24 22:00 09/25/24 05:09 5 MG Lorazepam 0.5 mg BID PO 09/21/24 22:00 09/24/24 21:15 0.5 MG Thiamine HCl 100 mg DAILY PO 09/23/24 10:00 09/24/24 09:53 100 MG Folic Acid 1 mg DAILY PO 09/23/24 10:00 09/24/24 09:53 1 MG Lorazepam 1 mg Q2HPRN PRN IV 09/22/24 19:00 Pantoprazole Sodium 40 mg BID IV 09/22/24 22:00 09/24/24 21:15 40 MG Lidocaine 1 patch DAILY TOP 09/23/24 10:00 09/24/24 09:53 1 PATCH Nicotine 1 patch DAILY TD 09/23/24 10:00 09/24/24 09:53 1 PATCH Sucralfate 1 gm QID@0600,1130,1700,2200 PO 09/23/24 17:00 09/25/24 05:09 1 GM laboratory and microbiology Laboratory Tests 09/25/24 04:45 09/24/24 06:49 Test 09/24/24 06:49 Range/Units Serum Glucose 103 74-106 mg/dL Problem List/Assessment/Plan Problem List/Assessment/Plan # Lower Upper + GI bleed: GI on board, IV b.i.d. hemoglobin on admission 6.7 status post 2 PRBC increased the hemoglobin. H&H stable, follow up CBC. Patient completed EGD today which showed: A deep 2-3 cm pre-pyloric antral gastric ulcer at the 8 o'clock position with a central red dot but no visible vessel, no active bleeding: Force classification C. Mild gastritis. 2 cm sliding-type hiatal hernia with minimal grade a erosive esophagitis. Otherwise normal examination up to the 2nd and 3rd part of the duodenum with good bile drainage and no active bleeding and no active areas. - Protonix 40 mg b.i.d., Carafate 1 g 4 times a day - placed on a mechanical soft diet today on 09/24/2024 - PT request for service # Dizziness /lightheadedness: likely due to anemia versus 17 minute counseling and plan was provided. # Alcohol use disorder: Patient reported having for almost 40 years of 6 packs beer each day. Alcohol cessation counseling done. Patient on CIWA as needed Ativan for withdrawal symptoms # Degenerative disc disease: spinal stenosis at the level of L3-L4 , comprehend fractures T12 L3-L4, anterior spondylolisthesis L5-S1 with degenerative disc changes, pain management, Continue. # Microcytic hypochromic anemia: Likely due to GI bleed. Transfusion cut off for the patient is 7 grams/dL # Chronic pancreatitis: CT findings suggestive of pancreatitis but the lipase normal likely chronic. We will look for the need of pancreatic enzyme replacement based on how patient tolerates diet. # Cachexia and severe malnutrition with BMI of 14.6: Patient lost weight so 40 lb almost in last 2-3 months. It could be underlying cancer, extensive cancer workup pending. nutrition consult done. we will check for HIV panel , cancer panel. # History of colonic polyp: Patient mentioned 4-5 years back her colonoscopy was found to have polyp but then follow up # history of lung nodules: Patient did not follow for repeats chest CT, we will repeat chest CT # Known history of internal hemorrhoids: at home he uses the steroid cream and laxatives. # history of essential hypertension: On amlodipine and atenolol at home. # in-hospital hypotension: Stopped the antihypertensives and IV fluid, keeping the map over 65 # GERD: Protonix continue # chronic back pain: Patient has low back pain and follows pain management with Dr. Cain outpatient khan. # SCD for DVT prophylaxis Barriers to discharge: medical workup ongoing. we will consider discharge. Patient lives at home by himself. Case discussed with Dr. Snyder. Code status: patient wants to DNR/DNI Plan discussed with: Patient, Other (RN) Dietary Evaluation Review Comments: Advance diet to 2gNa texture as tolerated after his GI procedures. Avoid alocohol. accomondate his likes and dislikes. Expected Outcomes/Goals: improved nutriton status, gradual weight gain. Laboratory Results Laboratory Tests 09/24/24 06:49 09/25/24 04:45 Urinalysis Test 09/22/24 09:00 Urine Color Light-yellow (Yellow) Urine Clarity Clear (Clear) Urine pH 6.5 (5.0-9.0) Urine Specific [place] 1.018 (1.001-1.035) Urine Protein Negative (Negative) Urine Ketones Negative (Negative) Urine Blood Negative /uL (Negative) Urine Nitrite Negative (Negative) Urine Bilirubin Negative (Negative) Urine Urobilinogen Normal mg/dL (Negative) Urine Leukocyte Esterase Negative /uL (Negative) Urine RBC <1 /hpf (0 - 3) Urine WBC <1 /hpf (0 - 3) Urine Squamous Epithelial Cells None seen /hpf (<5) Urine Bacteria None seen /hpf (None Seen) Urine Glucose Normal mg/dL (Normal) CC Plasma Assessment Blood Product Administration S: [id number] CLARENCE NIXON RESIDENT Sep 25, 2024 08:19
[2024-09-25 09:00] VITALS: BP 115/78; PULSE 97; RESP 17; TEMP 98; O2SAT 98
[2024-09-25] MEDS ORDERED: MORPHINE SULF 15mg ER tab PO PRN (10:15)
[2024-09-25] MEDS: HYDROcodone-ACET 10/325MG TAB PO SCH (11:10)
[2024-09-25 13:00] VITALS: BP 120/86; PULSE 122; RESP 18; TEMP 97.5; O2SAT 97
[2024-09-25 16:20] VITALS: BP 120/84; PULSE 112; RESP 18; TEMP 97.5; O2SAT 93
[2024-09-25] MEDS ORDERED: HYDR-4798 PO (16:37)
[2024-09-25] MEDS ORDERED: MORP1TAB12 PO (16:37)
[2024-09-25] MEDS ORDERED: SUCR1SUS26 PO (16:37)
[2024-09-25] MEDS ORDERED: NICO14DI9 TD (16:37)
[2024-09-25] MEDS ORDERED: PANT40T PO (16:37)
[2024-09-25] MEDS ORDERED: PANTOPRAZOLE 40 MG TAB PO SCH (17:00)
--- NOTE | 2024-09-25 19:02 | DVHDSRES ---
Discharge Summary Date of Admission Resident Creating Document: CLARENCE NIXON RESIDENT Sep 21, 2024 at 21:03 Date of Discharge: Sep 25, 2024 Admitting Diagnosis Dizziness, melena, hematochezia Labs/Diagnostic Data: Laboratory Results Test 09/25/24 04:45 09/24/24 06:49 09/23/24 23:26 09/23/24 05:04 White Blood Count 6.7 10^3/uL (4.4-10.8) Red Blood Count 2.76 10^6/uL (4.5-5.90) Hemoglobin 8.9 g/dL (13.5-17.5) Hematocrit 27.0 % (41.0-53.0) Mean Corpuscular Volume 98.0 fL (80.0-100.0) Mean Corpuscular Hemoglobin 32.4 pg (28.0-32.0) Mean Corpuscular Hemoglobin Concent 33.0 g/dL (32.0-36.0) Red Cell Distribution Width 16.4 % (11.8-14.3) Platelet Count 194 10^3/uL (140-450) Mean Platelet Volume 8.3 fL (6.9-10.8) Neutrophils (%) (Auto) 75.4 % (37.0-80.0) Lymphocytes (%) (Auto) 15.7 % (10.0-50.0) Monocytes (%) (Auto) 7.1 % (0.0-12.0) Eosinophils (%) (Auto) 1.5 % (0.0-7.0) Basophils (%) (Auto) 0.3 % (0.0-2.0) Neutrophils # (Auto) 5.1 10 ^3/uL (1.6-8.6) Lymphocytes # (Auto) 1.1 10 ^3/uL (0.4-5.4) Monocytes # (Auto) 0.5 10 ^3/uL (0-1.3) Eosinophils # (Auto) 0.1 10 ^3/uL (0-0.8) Basophils # (Auto) 0 10 ^3/uL (0-0.2) Nucleated Red Blood Cells 0.0 % Sodium Level 136 mmol/L (136-145) Potassium Level 4.1 mmol/L (3.5-5.1) Chloride Level 107 mmol/L (98-107) Carbon Dioxide Level 25 mmol/L (20-31) Anion Gap 4 (5-15) Blood Urea Nitrogen 20 mg/dL (9-23) Creatinine 1.13 mg/dL (0.700-1.30) Glomerular Filtration Rate Calc 71 mL/min (>90) BUN/Creatinine Ratio 17.7 (10.0-20.0) Serum Glucose 103 mg/dL (74-106) Calcium Level 8.4 mg/dL (8.7-10.4) Stool Occult Blood Positive (Negative) Stool Occult Blood Sample #3 (Negative) Prothrombin Time 11.0 sec (9.3-11.8) Prothrombin Time INR 1.04 (0.9-1.15) Phosphorus Level 3.0 mg/dL (2.4-5.1) Magnesium Level 1.9 mg/dL (1.6-2.6) Total Bilirubin 0.4 mg/dL (0.2-1.0) Aspartate Amino Transferase (AST) 8 U/L (13-40) Alanine Aminotransferase (ALT) < 9 U/L (7-40) Alkaline Phosphatase 112 U/L (46-116) Total Protein 4.1 g/dL (5.7-8.2) Albumin 2.5 g/dL (3.2-4.8) Test 09/22/24 09:00 09/22/24 02:42 Urine Color Light-yellow (Yellow) Urine Clarity Clear (Clear) Urine pH 6.5 (5.0-9.0) Urine Specific Outing 1.018 (1.001-1.035) Urine Protein Negative (Negative) Urine Ketones Negative (Negative) Urine Blood Negative /uL (Negative) Urine Nitrite Negative (Negative) Urine Bilirubin Negative (Negative) Urine Urobilinogen Normal mg/dL (Negative) Urine Leukocyte Esterase Negative /uL (Negative) Urine RBC <1 /hpf (0 - 3) Urine WBC <1 /hpf (0 - 3) Urine Squamous Epithelial Cells None seen /hpf (<5) Urine Bacteria None seen /hpf (None Seen) Urine Glucose Normal mg/dL (Normal) Urine Opiates Screen Pos (NEGATIVE) Urine Fentanyl Screen Neg (NEGATIVE) Urine Barbiturates Screen Neg (NEGATIVE) Urine Phencyclidine Screen Neg (NEGATIVE) Urine Amphetamines Screen Neg (NEGATIVE) Urine Benzodiazepines Screen Neg (NEGATIVE) Urine Cocaine Screen Neg (NEGATIVE) Urine Cannabinoids Screen Neg (NEGATIVE) Activated Partial Thromboplast Time 29.0 SEC (24.5-34.5) Hemoglobin A1c 5.0 % A1C (<5.7) Lipase 17 U/L (12-53) Tumor Marker Alpha Fetoprotein 3.9 ng/mL (0.0-8.4) Carcinoembryonic Antigen 2.31 ng/mL (<=5.0) CA 19-9 Antigen 14 U/mL (0-35) Vitamin B12 Level 333 pg/mL (211-911) Vitamin D 25-Hydroxy 28.5 ng/mL (30.0-100) Thyroid Stimulating Hormone (TSH) 1.92 uIU/mL (0.55-4.78) Plasma/Serum Blood Alcohol < 3.0 mg/dL (<10) Hepatitis B Surface Antigen Negative (Negative) Hepatitis C Antibody Negative (Negative) HIV (1&2) Antibody Negative (Negative) Other Laboratory Tests 09/25/24 04:45 09/24/24 06:49 Brief Hx & Hospital Course: Hospital course: Mr. Simmons, a 69-year-old gentleman with past medical history significant for hypertension, GERD, COPD, TIA, left hip fracture status post repair, admitted with recurrent melena, recent episode of hematochezia, weakness, weight loss, dizziness and related mechanical fall without losing consciousness. patient also complains of overall feeling very weak, and having extreme difficulty on weight-bearing and low back pain. Denies nausea , vomiting, fever, chest pain, abdominal pain, nausea, diarrhea or any other Systemic symptoms. Patient denies any active ongoing complaint or discomfort. Hemodynamically stable and symptom free. Outpatient follow up with Discharge clinic on upcoming sunday09/29/2024, follow up with PCP in 1-2 weeks, follow up with GI outpatient khan with follow up colonoscopy and Further pain regimen as Dr. Cain. Discharged on short course of opiod analgesics, ongoing discussion Medical Conditions treated in hospital: # Lower Upper + GI bleed, symptomatic blood loss anemia # deep 2-3 cm pre-pyloric antral gastric ulcer at the 8 o'clock position with a central red dot but no visible vessel, no active bleeding: Force classification C. Mild gastritis. # 2 cm sliding-type hiatal hernia with minimal grade a erosive esophagitis. # Protonix 40 mg b.i.d., Carafate 1 g 4 times a day # Dizziness /lightheadedness: likely due to anemia versus intravascular fluid depletion. # Alcohol use disorder: Patient reported having for almost 40 years of 6 packs beer each day. Alcohol cessation counseling done. Patient on CIWA as needed Ativan for withdrawal symptoms # Degenerative disc disease: spinal stenosis at the level of L3-L4 , comprehend fractures T12 L3-L4, anterior spondylolisthesis L5-S1 with degenerative disc changes, pain management, Continue. # Microcytic hypochromic anemia: Likely due to GI bleed. Transfusion cut off for the patient is 7 grams/dL # History Chronic pancreatitis, tolerating diet well. # Cachexia and severe malnutrition with BMI of 14.6: Patient lost weight so 40 lb almost in last 2-3 months, workup in progress. # History of colonic polyp pending outpatient colonoscopy. # history of lung nodules needing outpatient CT chest. # Known history of internal hemorrhoids, avoid constipation # history of essential hypertension # in-hospital hypotension, improved. # GERD continue on carafate and protonix, follow up with GI. # chronic back pain: Patient has low back pain and follows pain management with Dr. Cain outpatient khan. Short course of oral opiod analgesics given. # Smoking cesation discussion to continue: will offer Welbutrin and Nicotine patch. 11 mintues bedside counseling done. # s/p EGD biopsy pending, follow up with GI. Case discussed with Dr. Snyder. Discharge planning needed total 43 minutes of detailed discussion. The patient agreed on the plan. Medication sent to pharmacy. Patient discharged to home with family. Consults/Reason for consult GI Operations or Procedures [place] [id number] Ph: [phone] DIAGNOSTIC IMAGING Diagnostic Imaging Report : [id number] Signed PATIENT: BERTO SIMMONS ACCT: [id number] UNIT: [id number] : 1955 LOC: TELE-CENTR ROOM / BED: 0206T / A AGE / SEX: 69 / M ADM STATUS: ADM IN SERVICE 0400 ORDERING PHYSICIAN: CLARENCE NIXON RESIDENT PROCEDURE(s): CXRP - CHEST PORTABLE REASON: For procedure ORDER NUMBER(s): [id number], ACCESSION NUMBER(s): [id number] CHEST RADIOGRAPH Indication:For procedure Technique: Single frontal view of the chest was obtained Comparison: CHEST PORTABLE on DOS: 01/29/20 FINDINGS: Lines and Tubes: None Lungs: No focal consolidation. Pleura: No effusion. No pneumothorax. Cardiomediastinal contours: Unremarkable Bones: No acute osseous abnormality. IMPRESSION: 1. No acute cardiopulmonary disease. ATED BY: ERIC ARRIETA MD DICTATED DATE/TIME: 09/23/24658 SIGNED BY: ERIC ARRIETA MD SIGNED DATE/TIME: 09/23/24658 CC: [place] [id number] Ph: [phone] DIAGNOSTIC IMAGING Diagnostic Imaging Report : [id number] Signed PATIENT: BERTO SIMMONS ACCT: [id number] UNIT: [id number] : 1955 LOC: TE[facility] ROOM / BED: [facility] / A AGE / SEX: 69 / M ADM STATUS: ADM IN SERVICE 0000 ORDERING PHYSICIAN: BEATRIZ IBARRA MD PROCEDURE(s): CARCL - CAROTID DUPLX W COLOR DOP REASON: DIZZINESS ORDER NUMBER(s): [id number], ACCESSION NUMBER(s): [id number] CAROTID ARTERIAL DOPPLER CLINICAL HISTORY: DIZZINESS TECHNIQUE: Doppler study of bilateral carotid/vertebral arteries were performed. Comparison: None FINDINGS: There are calcified atherosclerotic changes in the proximal left internal carotid artery. The bilateral common carotid, external and internal carotid arteries appear patent without hemodynamically significant stenosis. There is no significant flow limiting plaque formation identified.The spectral wave forms and peak systolic velocities are within normal limits. Antegrade flow is present within the vertebral arteries with appropriate velocities and waveforms. Right ICA/CCA PSV ratio = 1.6. Left ICA/CCA PSV ratio = 1.2 . IMPRESSION: 1. No hemodynamically significant stenosis within the carotid arteries. HS:Y ATED BY: JOSHUA WORTHY MD DICTATED DATE/TIME: 09/22/24952 SIGNED BY: JOSHUA WORTHY MD SIGNED DATE/TIME: 09/22/24952 CC: [place] [id number] Ph: [phone] DIAGNOSTIC IMAGING Diagnostic Imaging Report : [id number] Signed PATIENT: BERTO SIMMONS ACCT: [id number] UNIT: [id number] : 1955 LOC: TELE ROOM / BED: [address] [place] [address] AGE / SEX: 69 / M ADM STATUS: ADM IN SERVICE 11 ORDERING PHYSICIAN: MEÑO MONTERROSO RESIDENT PROCEDURE(s): ABD2C - ABDOMEN WITHOUT CONTRAST REASON: GI bleed ORDER NUMBER(s): [id number], ACCESSION NUMBER(s): [id number] Exam: CT ABDOMEN WITHOUT CONTRAST History: GI bleed Comparison Study: None available at time of dictation. TECHNIQUE: Multidetector CT of the abdomen was performed from lung bases to pubic symphysis. Imaging was performed without IV contrast. Axial, coronal and sagittal multiplanar reformats were obtained from the axial data set by the technologist. Radiation Dose Information: CT Dose: CTDI volume is 5.07 mGy. Dose-length product is 243.58 mGy*cm FINDINGS: Evaluation of solid organs is limited due to lack of intravenous contrast use. Findings: Lung Bases: No acute or significant lung base finding. Normal heart size. No pleural or pericardial effusion. Liver: The liver is normal in size. No focal lesions. Gallbladder and Biliary Tree: Unremarkable Spleen: Unremarkable Pancreas: Calcifications throughout the pancreas suggesting changes of chronic pancreatitis. Adrenal Glands: Unremarkable Kidneys: Kidneys are grossly normal without calculi or hydronephrosis. Bladder: Grossly unremarkable for degree of distention. Bowel: The stomach is grossly normal in appearance. Small bowel and colon are normal in caliber and distribution. The appendix is not visualized; however, no secondary findings of acute appendicitis identified. Ascites: Absent Lymphadenopathy: No mesenteric, retroperitoneal or periportal lymphadenopathy. Abdominal Wall and Mesentery: Unremarkable. Vasculature: The visualized abdominal aorta is normal in size and caliber. Evaluation of abdominal and pelvic vessels is limited due to lack of intravenous contrast. Pelvic Organs: Unremarkable Musculoskeletal: No aggressive focal bony lesions, acute fractures or dislocation. Findings to suggest postop changes from a open reduction internal fixation of the left acetabular, left proximal femur and left pelvis fracture. Internal fixation screws are in place. Old healed compression fractures of Soft tissues: Unremarkable IMPRESSION: 1. No calcified gallstones seen. 2. No nephrolithiasis or hydronephrosis. 3. No findings to suggest bowel obstruction. 4. Findings of chronic pancreatitis. 5. Postop changes left hip and pelvis. Radiation optimization: All CT scans at this facility use at least one of these dose optimization techniques: automated exposure control mA and/or kV adjustment per patient size (includes targeted exams where dose is matched to clinical indication) or iterative reconstruction. ATED BY: BERTO GUERRERO Jr., DO DICTATED DATE/TIME: 09/21/242217 SIGNED BY: BERTO GUERRERO Jr., SIGNED DATE/TIME: 09/21/242217 CC: [place] [id number] Ph: [phone] DIAGNOSTIC IMAGING Diagnostic Imaging Report : [id number] Signed PATIENT: BERTO SIMMONS ACCT: [id number] UNIT: [id number] : 1955 LOC: ER ROOM / BED: / AGE / SEX: 69 / M ADM STATUS: REG ER SERVICE 1305 ORDERING PHYSICIAN: BEATRIZ IBARRA MD PROCEDURE(s): PL2CT - PELVIS WO CONTRAST REASON: yodit ORDER NUMBER(s): [id number], ACCESSION NUMBER(s): [id number] Exam: CT PELVIS WO CONTRAST History: fell Comparison Study: None available at time of dictation. Technique: Multidetector CT of the pelvis was performed from iliac crests to pubic symphysis after the administration of intravenous contrast was administered during this examination. Portal venous imaging was obtained. Axial, coronal and sagittal multiplanar reformats were performed by the technologist on a separate workstation. Radiation Dose : CT Dose: CTDI volume is 7.21 mGy. Dose-length product is 519.72 mGy*cm Findings: Visualized bowel: No bowel wall thickening or dilatation. Ascites: Absent Lymphadenopathy: No pelvic or mesenteric lymphadenopathy. Vasculature: The visualized abdominal aorta is normal in size and caliber. Abdominal and pelvic vessels demonstrate normal enhancement. Pelvic Organs: Unremarkable Musculoskeletal: Postop changes internal fixation proximal left femoral fracture left acetabular fracture. Bladder: Unremarkable Soft tissues: Unremarkable. IMPRESSION: 1. No displaced bony fractures. 2. Patient is status post open reduction internal fixation of a proximal left femoral fracture and left acetabular and iliac fracture. 3. No previous studies for comparison. All CT scans at this medical facility are performed using dose modulation techniques as appropriate to a performed exam including the following: Automated exposure control was utilized; adjustment of the MA and/or KV according to patient size; and use of iterative reconstruction technique. ATED BY: BERTO GUERRERO Jr., DO DICTATED DATE/TIME: 09/21/241446 SIGNED BY: BERTO GUERRERO Jr., SIGNED DATE/TIME: 09/21/241446 CC: [place] [id number] Ph: [phone] DIAGNOSTIC IMAGING Diagnostic Imaging Report : [id number] Signed PATIENT: BERTO SIMMONS ACCT: [id number] UNIT: [id number] : 1955 LOC: ER ROOM / BED: / AGE / SEX: 69 / M ADM STATUS: REG ER SERVICE 1305 ORDERING PHYSICIAN: BEATRIZ IBARRA MD PROCEDURE(s): LS2CT - LS SPINE WO CONTRAST REASON: leg weakness ORDER NUMBER(s): [id number], ACCESSION NUMBER(s): [id number] CT LS SPINE WO CONTRAST Date: 09/21/2024 01:52 PM History: leg weakness Comparison: None TECHNIQUE: Multiple axial CT images of the lumbosacral spine were obtained using bone algorithm. Axial and coronal reformatting was done. Bone and soft tissue windows were reviewed. Radiation Dose Information: CT Dose: CTDI volume is 7.21 mGy. Dose-length product is 519.72 mGy*cm FINDINGS: No CT evidence of definite acute fracture, spinal dislocation, or significant appearing acute subluxation is seen. The visualized paraspinal soft tissues are grossly unremarkable. T12-L1 There is no evidence of central spinal canal or neuroforaminal stenosis. Mild compression superior endplate T12 age indeterminate. No bony displacement. No central spinal canal stenosis. L1-L2 There is no evidence of central spinal canal or neuroforaminal stenosis. L2-L3 compression superior endplate of L3 with diffuse annular bulging of the disc hypertrophic arthritic bony changes of the articular facets and to the ligamentum flavum bilaterally with [id number] spinal stenosis. (9mm) L3-L4 mild compression superior endplate of L4. No displaced bony fragments. No central spinal canal stenosis. L4-L5 There is no evidence of central spinal canal or neuroforaminal stenosis. L5-S1 5 mm anterior spondylolisthesis L5-S1 with degenerative disc changes. IMPRESSION: 1. Compression superior endplate of T12-L3 and L4. 2. Mild central spinal stenosis at L3-4. 3. 5 mm anterior spondylolisthesis L5-S1 with degenerative disc changes. All CT scans at this medical facility are performed using dose modulation techniques as appropriate to a performed exam including the following: Automated exposure control was utilized; adjustment of the MA and/or KV according to patient size; and use of iterative reconstruction technique. ATED BY: BERTO GUERRERO Jr., DO DICTATED DATE/TIME: 09/21/241442 SIGNED BY: BERTO GUERRERO Jr., SIGNED DATE/TIME: 09/21/241442 CC: Patient: BERTO SIMMONS Acct: [id number] : 1955 Loc: [facility] Age/Sex: 69/M Room: 0206T / Bed: A Attending Phy: CLARENCE NIXON RESIDENT Operative Report DATE OF OPERATION: 09/23/24 PROCEDURE: Upper Endoscopy with biopsy. PREOPERATIVE INDICATION: The patient is a 69 -year-old male undergoing endoscopy for melena and anemia POSTOPERATIVE DIAGNOSES: 1. Patient had a deep 2-3 cm pre-pyloric antral gastric ulcer at the eight to 10 o'clock position with a central red dot but no visible vessel no active bleeding Reggie classification C 2. Mild gastritis 3. 2 cm sliding-type hiatal hernia with minimal grade a erosive esophagitis 4. Otherwise normal examination up to the 2nd and 3rd part of the duodenum with good bile drainage and no active bleeding and there were no varices PROCEDURE PERFORMED BY: Richard Retana GI NURSE: Eduardo SCOPE: Olympus videoendoscope. ASA CLASS: 3 PREOPERATIVE MEDICATIONS: MAC sedation; Hemanth Ornelas PROCEDURE IN DETAIL: After obtaining an informed consent, the patient was placed on left lateral decubitus position. The patient was then sedated with the above medications. A bite block was placed between his teeth. The endoscope was then passed through the oropharynx, into the esophagus, and through the stomach and pylorus up to the second and third part of the duodenum. The endoscope was then withdrawn. The second and third part of duodenum and duodenal bulb were normal. There was a 2-3 cm prepyloric deep antral gastric ulcer extending from about 8 o'clock to 10 o'clock position with a central red dot This was Reggie classification C with no visible vessel and no active bleeding. There were surrounding gastritis. On retroflexion the fundus cardia and angularis were normal. Duodenal and gastric biopsies were obtained. The endoscope was then withdrawn into the distal esophagus where the patient had a 2 cm sliding-type hiatal hernia with minimal grade a erosive esophagitis GE junction biopsies were obtained. The remaining distal and proximal esophagus and oropharynx were unremarkable The patient tolerated the procedure well without difficulty. COMPLICATIONS : None SPECIMENS: Duodenal biopsies Gastric biopsies GE junction biopsies DISPOSITION: Transfer back to the floor Stable PLAN: 1. Await for biopsy result 2. Will place pt on Protonix 40 mg bid 3. Carafate 1 g p.o. 4 times a day 4. Start full liquid diet advance to soft mechanical 5. DC aspirin NSAIDs smoking alcohol 6. Outpatient follow up with me in 4-6 weeks to review results discuss further management and to discuss elective screening colonoscopy RICHARD RETANA MD Sep 23, 2024 14:23 DICTATED BY:RICHARD RETANA MD DICTATED DATE/TIME:09/23/24 1423 ELECTRONICALLY SIGNED BY:RICHARD RETANA MD 09/23/24 142 ELECTRONICALLY CO-SIGNED BY: Condition at Discharge: Guarded Final Diagnosis/Problems List # Lower Upper + GI bleed, symptomatic blood loss anemia # deep 2-3 cm pre-pyloric antral gastric ulcer at the 8 o'clock position with a central red dot but no visible vessel, no active bleeding: Force classification C. Mild gastritis. # 2 cm sliding-type hiatal hernia with minimal grade a erosive esophagitis. # Protonix 40 mg b.i.d., Carafate 1 g 4 times a day # Dizziness /lightheadedness: likely due to anemia versus intravascular fluid depletion. # Alcohol use disorder: Patient reported having for almost 40 years of 6 packs beer each day. Alcohol cessation counseling done. Patient on CIWA as needed Ativan for withdrawal symptoms # Degenerative disc disease: spinal stenosis at the level of L3-L4 , comprehend fractures T12 L3-L4, anterior spondylolisthesis L5-S1 with degenerative disc changes, pain management, Continue. # Microcytic hypochromic anemia: Likely due to GI bleed. Transfusion cut off for the patient is 7 grams/dL # History Chronic pancreatitis, tolerating diet well. # Cachexia and severe malnutrition with BMI of 14.6: Patient lost weight so 40 lb almost in last 2-3 months, workup in progress. # History of colonic polyp pending outpatient colonoscopy. # history of lung nodules needing outpatient CT chest. # Known history of internal hemorrhoids, avoid constipation # history of essential hypertension # in-hospital hypotension, improved. # GERD continue on carafate and protonix, follow up with GI. # chronic back pain: Patient has low back pain and follows pain management with Dr. Cain outpatient khan. Short course of oral opiod analgesics given. # Smoking cesation discussion to continue: will offer Welbutrin and Nicotine patch. 11 mintues bedside counseling done. # s/p EGD biopsy pending, follow up with GI. Discharge Disposition: Home Discharge Instruct/Medications Diet: Regular Activity: Light activity Follow Up/Referral: [facility] discharge clinic on Sunday. Follow PCP and Follow GI outpatient. For pain management follow Dr. Cain. Medications: as per JAN. Discharge Statement: "Patient was advised to return to the ER or call 911 if any headaches, dizziness, shortness of breath, chest pain, abdominal pain, bleeding, fevers, or worsening of medical condition. Patient was counseled about treatment plan, medications, possible side effects, patientverbalized understanding. All questions were answered to the best of my ability. This discharge took greater then 30 minutes in planning, reviewing documentation, counseling the patient, and discussing with other team members." Physical Exam General Appearance: No Apparent Distress, Cachectic, Thin HEENT: normal ENT inspection, PERRL/EOMI Neck: Normal Inspection, Non-Tender Respiratory: chest non-tender, lungs clear, normal breath sounds, no respiratory distress, no accessory muscle use, respiratory distress Cardiovascular: normal peripheral pulses, regular rate, rhythm, no edema, no gallop, no JVD, no murmur Gastrointestinal: normal bowel sounds, non tender, no organomegaly, no pulsatile mass Pelvic: Deferred Back: normal inspection, no CVA tenderness, no vertebral tenderness Extremities: normal inspection, no calf tenderness Neurologic/Psychiatric: senior counsel II-XII nml as tested, no motor/sensory deficits, normal mood/affect, oriented x 3 Skin: normal color, warm/dry Lymphatic: no adenopathy ASSESSMENT ASSESSMENT Assessment lower and upper gi bleed Date of Service: Sep 25, 2024 Billing Provider: KELY SNYDER MD Common Visit Codes: 94867-XGH/OBS DISCH DAY >30min Coding Comment Comment I saw and evaluated the patient. I reviewed the residents note and agree with findings and plan as documented in the residents note. Patient will be discharged with opiate for pain control, for further follow up pain control patient will need to go to pain management clinic. Patient has appointment for discharge Clinic where he should be referred CLARENCE NIXON RESIDENT Sep 25, 2024 19:02 KELY SNYDER MD Sep 25, 2024 20:39
== END 2024-09-25 17:00 | disposition home health service (06) | DRG 380 ==
LOC: EDBD 12:53 → ER 12:53 → TELE 21:03 → TELE-CENTR 21:06
PROVIDERS: ADMIT Student in an Organized Health Care Education/Training Program; ATTEND Student in an Organized Health Care Education/Training Program
PROC: 30233N1 Transfusion of Nonautologous Red Blood Cells into Peripheral Vein, Percutaneous Approach (ICD-10-PCS; principal; 2024-09-21)
PROC: 0DB98ZX Excision of Duodenum, Via Natural or Artificial Opening Endoscopic, Diagnostic (ICD-10-PCS; 2024-09-23)
PROC: 0DB68ZX Excision of Stomach, Via Natural or Artificial Opening Endoscopic, Diagnostic (ICD-10-PCS; 2024-09-23)
PROC: 0DB48ZX Excision of Esophagogastric Junction, Via Natural or Artificial Opening Endoscopic, Diagnostic (ICD-10-PCS; 2024-09-23)
DX: K22.11 Ulcer of esophagus with bleeding (principal); E43 Unspecified severe protein-calorie malnutrition; Z68.1 Body mass index [BMI] 19.9 or less, adult; K86.1 Other chronic pancreatitis; R64 Cachexia; K25.4 Chronic or unspecified gastric ulcer with hemorrhage; K29.71 Gastritis, unspecified, with bleeding; K21.9 Gastro-esophageal reflux disease without esophagitis; M48.061 Spinal stenosis, lumbar region without neurogenic claudication; M43.17 Spondylolisthesis, lumbosacral region; D53.9 Nutritional anemia, unspecified; N18.9 Chronic kidney disease, unspecified; J44.9 Chronic obstructive pulmonary disease, unspecified; K44.9 Diaphragmatic hernia without obstruction or gangrene; I12.9 Hypertensive chronic kidney disease with stage 1 through stage 4 chronic kidney disease, or unspecified chronic kidney disease; F17.210 Nicotine dependence, cigarettes, uncomplicated; Z82.49 Family history of ischemic heart disease and other diseases of the circulatory system; Z86.73 Personal history of transient ischemic attack (TIA), and cerebral infarction without residual deficits; Y90.9 Presence of alcohol in blood, level not specified; D50.0 Iron deficiency anemia secondary to blood loss (chronic); F10.90 Alcohol use, unspecified, uncomplicated
CPT/HCPCS: 36415; 71045; 72131; 72192; 74150; 80048; 80053; 80307; 80320; 81001; 82105; 82270; 82306; 82378; 82607; 83036; 83690; 83735; 84100; 84443; 85014; 85018; 85025; 85610; 85730; 86301; 86703; 86803; 86850; 86900; 86901; 86920; 87340; 93005; 93306; 93886; 97110; 97116; 97163; 97530; 99291; G0378; J2003; J2470; J3430

== ENCOUNTER 2025-08-23 12:35 | Emergency (ER) | payer OTHER, MEDICAID ==
[~2025-08-23] VITALS: Ht 167.6 cm; Wt 46.0 kg
[~2025-08-23 12:35] MED LIST changes: -AMLO1TAB22 PO; +AMLO1TAB23 PO; +BUSP10TA31 PO; +HYDR-3682 PO; +HYDR-4798 PO; -HYDR-4833 PO; +MORP1TAB12 PO; +NICO14DI9 TD; -OMEP20TA PO; +PANC3000 PO; +PANT40T PO; +SUCR1SUS26 PO
[2025-08-23 13:00] VITALS: PULSE 92; RESP 14; O2SAT 96
--- NOTE | 2025-08-23 13:16 | ECG ---
[facility] Test Date: 2025-08-23 Test Time: 12:51:15 Pat Name: BERTO SIMMONS Department: [facility] ED Patient ID: [facility]-[id number] Room: Gender: M Pest Control Service Representative: : 1955 Requested By: [place] ANDREA Order Number: [id number] Reading MD: Measurements Intervals [place] Rate: 66 P: 56 AR: 211 QRS: 73 QRSD: 96 T: 69 QT: 423 QTc: 444 Interpretive Statements Sinus rhythm Posterior infarct, recent Please click the below link to view image of tracing.
[2025-08-23] MEDS: SODIUM CHLORIDE 0.9% 500 ML IV ONE ×2 (13:27→13:34)
[2025-08-23 13:58] LABS: Hematocrit 30.5 % (41.0-53.0); Hemoglobin 10.0 g/dL (13.5-17.5); Mean Corpuscular Hemoglobin 35.0 pg (28.0-32.0); Mean Corpuscular Volume 107.0 fL (80.0-100.0); Nucleated Red Blood Cells % 0.2 %
[2025-08-23 14:10] LABS: Sodium 144 mmol/L (136-145)
[2025-08-23 14:11] LABS: Anion Gap 14 (5-15)
[2025-08-23 14:14] LABS: Calcium 7.5 mg/dL (8.7-10.4); Carbon Dioxide 18 mmol/L (20-31); Chloride 112 mmol/L (98-107); Potassium 3.0 mmol/L (3.5-5.1)
[2025-08-23 14:16] LABS: BUN/Creatinine Ratio 7.5 (10.0-20.0); Glucose 89 mg/dL (74-106)
[2025-08-23 14:17] LABS: Blood Urea Nitrogen 8 mg/dL (9-23)
--- NOTE | 2025-08-23 14:18 | ED.PDOC ---
HPI (NEURO) HPI Comments 70 y/o M, BIBA, with PMHx of GERD, HTN, TIA, and liver disease presents to the ED for CC of dizziness. EMS reports, patient is coming from home where he c/o dizziness with associated right sided chest pain s/p fall x4-5days prior. Patient relays, that he experienced a ground level fall and has now had right sided thoracic cage pain as a result. Upon arrival to the ED patient has alcohol on his breath and endorses drinking approximately [id number] prior to his arrival; reports heavy alcohol usage daily. On patient's medication list it is noted that patient takes Amlodipine and a steroid BID; patient is hypotensive with a blood pressure of 88/56mmHg. Patient denies head injury, loss of consciousness, hea dache with aura, or changes in vision. No other symptoms or modifying factors are present at this time. Chief Complaint: Dizziness Time Seen by MD: 13:30 Primary Care Provider: EULOGIO Hendrickson Reviewed Notes: Nurses Notes, Systems Operator Notes, Medications, Allergies Information Source: Emergency Med Personnel Mode of Arrival: EMS Severity: Moderate Dizziness/Weakness Severity: Unable to do activities Headache Severity: None Timing: Days Duration: Since onset Prehospital treatment: None Onset: At rest Circumstances: Spontaneous Symptoms: Vertigo Before: Normal During: Awake History of: TIA Modifying factors: Nothing Associated Signs and Symptoms: None Past Medical History PAST MEDICAL HISTORY: CKF, GERD, HTN, Liver, TIA Surgical History: Tonsillectomy Family History Family History: Family hx of HTN Social History Smoker: Cigarettes Alcohol: Sober Drugs: Denies Drug Use Lives In: Home Constitutional: denies: chills, diaphoresis, fatigue, fever, malaise, sweats, weakness, others EENTM: denies: blurred vision, double vision, ear bleeding, ear discharge, ear drainage, ear pain, ear ringing, eye pain, eye redness, hearing loss, mouth pain, mouth swelling, nasal discharge, nose bleeding, nose congestion, nose pain, photophobia, tearing, throat pain, throat swelling, voice changes, others Respiratory: denies: cough, hemoptysis, orthopnea, SOB at rest, shortness of breath, SOB with excertion, stridor, wheezing, others Cardiovascular: denies: chest pain, dizzy spells, diaphoresis, Dyspnea on exertion, edema, irregular heart beat, left arm pain, lightheadedness, palpitations, PND, syncope, others Gastrointestinal: denies: abdomen distended, abdominal pain, blood streaked bowels, constipated, diarrhea, dysphagia, difficulty swallowing, hematemesis, melena, nausea, poor appetite, poor fluid intake, rectal bleeding, rectal pain, vomiting, others Genitourinary: denies: burning, dysuria, flank pain, frequency, hematuria, incontinence, penile discharge, penile sore, pain, testicle pain, testicle swelling, urgency, others Neurological: reports: dizziness; denies: fainting, headache, left sided numbness, left sided weakness, numbness, paresthesia, pre-existing deficit, right sided numbness, right sided weakness, seizure, speech problems, tingling, tremors, weakness, others Musculoskeletal: reports: others (right sided rib pain); denies: back pain, gout, joint pain, joint swelling, muscle pain, muscle stiffness, neck pain Integumetry: denies: bruises, change in color, change in hair/nails, dryness, laceration, lesions, lumps, rash, wounds, others Allergic/Immunocompromised: denies: Difficulty Healing, Frequent Infections, Hives, Itching, others Hematologic/Lymphatic: denies: anemia, blood clots, easy bleeding, easy bruising, swollen glands, others Endocrine: denies: excessive hunger, excessive sweating, excessive thirst, excessive urination, flushing, intolerance to cold, intolerance to heat, unexplained weight gain, unexplained weight loss, others Psychiatric: denies: anxiety, bipolar disorder, depression, hopeless, panic disorder, schizophrenia, sleepless, suicidal, others All Other Systems: Reviewed and Negative Physical Exam General Appearance: No Apparent Distress, Thin, Other (Alcohol on the breath) HEENT: Normal ENT Inspection, Pharynx Normal, TMs Normal Neck: Full Range of Motion, Non-Tender, Normal, Normal Inspection Respiratory: Chest Non-Tender, Lungs Clear, No Accessory Muscle Use, No Respiratory Distress, Normal Breath Sounds Cardiovascular: No Edema, No JVD, No Murmur, No Gallop, Normal Peripheral Pulses, Regular Rate/Rhythm Breast Exam: Deferred Gastrointestinal: No Organomegaly, Non Tender, No Pulsatile Mass, Normal Bowel Sounds, Soft Genitalia: Deferred Pelvic: Deferred Rectal: Deferred Extremities: No calf tenderness, Normal capillary refill, Normal inspection, Normal range of motion, Non-tender, No pedal edema Musculoskeletal : Apperance: Normal Neurologic: Alert, stove mounter II-XII nml as Tested, No Motor Deficits, Normal Affect, Normal Mood, No Sensory Deficits Cerebellar Function: Normal Reflexes: Normal Skin: Dry, Normal Color, Warm Lymphatic: No Adenopathy Was a procedure done? Was a procedure done?: No Differential Diagnosis (SZ) General Weakness: Dehydration, Hypotension, Vertigo: central, Vertigo: peripheral X-Ray, Labs, Meds, VS Vital Signs Date Time Temp Pulse Resp B/P (MAP) Pulse Ox O2 Delivery O2 Flow Rate FiO2 08/23/25 15:00 58 13 102/63 (76) 96 08/23/25 14:00 61 12 106/62 (77) 97 08/23/25 13:00 92 14 96 Room Air* 0 21 08/23/25 13:00 97.7 92 14 108/69 (82) 96 97.7 08/23/25 12:51 66 08/23/25 12:40 97.6 81 18 90/56 96 97.6 Lab Test 08/23/25 13:41 08/23/25 13:10 Range/Units White Blood Count 4.4 4.4-10.8 10^3/uL Red Blood Count 2.85 L 4.5-5.90 10^6/uL Hemoglobin 10.0 L 13.5-17.5 g/dL Hematocrit 30.5 L 41.0-53.0 % Mean Corpuscular Volume 107.0 H 80.0-100.0 fL Mean Corpuscular Hemoglobin 35.0 H 28.0-32.0 pg Mean Corpuscular Hemoglobin Concent 32.7 32.0-36.0 g/dL Red Cell Distribution Width 18.5 H 11.8-14.3 % Platelet Count 129 L 140-450 10^3/uL Mean Platelet Volume 8.0 6.9-10.8 fL Neutrophils (%) (Auto) 62.3 37.0-80.0 % Lymphocytes (%) (Auto) 25.3 10.0-50.0 % Monocytes (%) (Auto) 10.1 0.0-12.0 % Eosinophils (%) (Auto) 1.9 0.0-7.0 % Basophils (%) (Auto) 0.4 0.0-2.0 % Neutrophils # (Auto) 2.8 1.6-8.6 10 ^3/uL Lymphocytes # (Auto) 1.1 0.4-5.4 10 ^3/uL Monocytes # (Auto) 0.4 0-1.3 10 ^3/uL Eosinophils # (Auto) 0.1 0-0.8 10 ^3/uL Basophils # (Auto) 0 0-0.2 10 ^3/uL Nucleated Red Blood Cells 0.2 % Sodium Level 144 136-145 mmol/L Potassium Level 3.0 L 3.5-5.1 mmol/L Chloride Level 112 H 98-107 mmol/L Carbon Dioxide Level 18 L 20-31 mmol/L Anion Gap 14 5-15 Blood Urea Nitrogen 8 L 9-23 mg/dL Creatinine 1.06 0.700-1.30 mg/dL Glomerular Filtration Rate Calc 76 >90 mL/min BUN/Creatinine Ratio 7.5 L 10.0-20.0 Serum Glucose 89 74-106 mg/dL Calcium Level 7.5 L 8.7-10.4 mg/dL Plasma/Serum Blood Alcohol 292.5 H <10 mg/dL POC Glucose 101 70-106 mg/dl Current Medications Medications (Trade) Dose Ordered Sig/Dolly Route Start Time Stop Time Status Last Admin Sodium Chloride 500 ml @ 500 mls/hr Q1H ONCE IV 08/23/25 13:30 08/23/25 14:29 DC 08/23/25 13:27 Ketorolac Tromethamine (Toradol Injection) 15 mg ONCE ONCE IV 08/23/25 14:30 08/23/25 14:31 DC 08/23/25 14:46 Potassium Chloride (Klor-Con Tablet) 40 meq ONCE ONCE PO 08/23/25 14:45 08/23/25 14:46 DC 08/23/25 14:46 RIGHT RIB XY: IMPRESSION: No acute cardiopulmonary disease. No displaced right rib fracture. The patient was given normal saline at 500 cc bolus. The patient was given ketorolac 15 mg IV push For the hypokalemia the patient was given potassium 40 mEq p.o. The chemistry panel does show the potassium was 3.0 The patient's alcohol level is 292.5 The patient's CBC shows anemia with a hemoglobin of 10 and hematocrit of 30 The patient is discharged and will follow up with the primary care doctor The patient will return to the emergency department's condition worsens. Images Reviewed?: Images reviewed and evaluated by me Time of 1ST Reevaluation: 14:00 Reevaluation 1ST: Unchanged Time of 2ND Reevaluation: 16:25 Reevaluation 2ND: Improved Patient Education/Counseling: Diagnosis, Treatment, Prognosis, Need For Follow Up Family Education/Counseling: No Family Present Departure 1 Departure Time of Disposition: 16:25 Impression: Primary Impression: Dizziness Additional Impressions: Alcohol intoxication Qualified Codes: F10.920 - Alcohol use, unspecified with intoxication, uncomplicated Contusion of rib on right side Qualified Codes: S29.8XXA - Other specified injuries of thorax, initial encounter Disposition: HOME / SELF CARE / HOMELESS Condition: Fair Discharged With: Self Critical Care Note Critical Care Time?: No Stability Stability form required: No Heart Score Heart Score: Heart Score Response (Comments) Value History N/A 0 EKG N/A 0 Age N/A 0 Risk Factors N/A 0 Troponin N/A 0 Total 0 I personally scribed for NY ANDREA MD ([email or web address]) on 08/23/25 at 14:18. Electronically submitted by Sangeetha King ([employer]). I personally scribed for NY ANDREA MD ([email or web address]) on 08/23/25 at 16:15. Electronically submitted by Sangeetha King ([employer]). I personally scribed for NY ANDREA MD ([email or web address]) on 08/23/25 at 16:16. Electronically submitted by Sangeetha King ([employer]). NY ANDREA MD Aug 23, 2025 14:18
--- NOTE | 2025-08-23 14:26 | DVH ---
EXAMINATION: XY R RIB XRAY INDICATION: trauma COMPARISON: XY CHEST PORTABLE on DOS: 09/23/24, CHEST PORTABLE on DOS: 01/29/20 TECHNIQUE: Frontal view of the chest and 3 views of the right ribs history FINDINGS: No focal consolidation, pleural effusion or significant pneumothorax. Normal cardiomediastinal silhou ette. No displaced right rib fracture. IMPRESSION: No acute cardiopulmonary disease. No displaced right rib fracture.
[2025-08-23] MEDS: KETOROLAC TROMETH 30 MG/ML 1ML VIAL IV ONE (14:46)
[2025-08-23] MEDS: POTASSIUM CHL 20 Meq TABLET PO ONE (14:46)
[2025-08-23 17:16] LABS: Urine Protein, UAD Negative (Negative)
[2025-08-23 17:19] VITALS: BP 104/63; PULSE 60; RESP 14; O2SAT 96
== END 2025-08-23 17:23 | disposition home or self-care (01) ==
LOC: ER 12:35 → EDBD 12:35 → ER 17:20
DX: S20.211A Contusion of right front wall of thorax, initial encounter (principal); R42 Dizziness and giddiness; F10.129 Alcohol abuse with intoxication, unspecified; I10 Essential (primary) hypertension; F17.210 Nicotine dependence, cigarettes, uncomplicated; Z90.89 Acquired absence of other organs; Z86.73 Personal history of transient ischemic attack (TIA), and cerebral infarction without residual deficits; Y90.8 Blood alcohol level of 240 mg/100 ml or more; W18.30XA Fall on same level, unspecified, initial encounter; Y93.89 Activity, other specified; Y92.89 Other specified places as the place of occurrence of the external cause; Y99.8 Other external cause status
CPT/HCPCS: 36415; 71101; 80048; 80320; 81001; 82947; 85025; 93005; 96374; 99285; J1885; J7030; 82962; 96361

== ENCOUNTER 2025-08-24 21:47 | Emergency (ER) | payer OTHER, MEDICAID ==
[~2025-08-24] VITALS: Ht 170.2 cm; Wt 45.4 kg
--- NOTE | 2025-08-24 21:57 | ED.PDOC ---
HPI Comments This is a 70 year old male QUEENIE presenting to the ED with chief complaint of chest wall pain. Patient reports that he had fell 3 days ago hitting his chest after the fall. Patient relays that since then he has had worsening chest pain with associated SOB. Patient states that he had went to [facility] yesterday, but does not know his results. Patient denies any head injury, dizziness, N/V, syncope, or headache. Chief Complaint: Chest Wall Injury Time Seen by MD: 21:54 Primary Care Provider: EULOGIO Hendrickson Reviewed Notes: Nurses Notes, Photogrammetrist Notes, Medications, Allergies Allergies: Coded Allergies: NO KNOWN ALLERGIES (Unverified , 05/14/17) Home Meds Active Scripts Nicotine (Nicotine) 14 Mg/24 Hr Dis, 1 MG TD DAILY for 30 Days, #30 DIS Prov:KELY CRUZ MD 09/25/24 Pantoprazole Sodium Sesquihydr (Pantoprazole Sodium) 40 Mg Tab, 40 MG PO BID@0600,1700 for 30 Days, #60 TAB Prov:KELY CRUZ MD 09/25/24 Hydrocodone-Acetaminophen (Hydrocodone Bitartrate/AC 10-325 mg) 1 Tab Tab, 1 TAB PO Q6HR for 3 Days, #12 TAB Prov:KELY CRUZ MD 09/25/24 Sucralfate (CARAFATE SUSP) 1 Gm/10 Ml Ss, 1 GM PO QID@0600,1130,1700,2200 for 30 Days, #1200 ML Prov:KELY CRUZ MD 09/25/24 Morphine Sulfate (Morphine Sulfate Cr) 15 Mg Tab, 15 MG PO Q8HR PRN for 3 Days, #9 TAB Prov:KELY CRUZ MD 09/25/24 Mupirocin Calcium (Topical) (MUPIROCIN) 2 % Cre, 2 % EX DIRECTED for 5 Days, CRE Prov:MICHELLE MCNEIL MD 08/06/19 Folic Acid (Folic Acid) 1 Mg Tab, 1 MG PO DAILY, #30 TAB Prov:MICHELLE MCNEIL MD 08/06/19 Thiamine Hcl (Thiamine) 50 Mg Cap, 50 MG PO DAILY, #30 Prov:MICHELLE MCNEIL MD 08/06/19 Reported Medications Hydroxyzine Hcl (Hydroxyzine Hcl) 25 Mg Tab, 1 TAB PO DAILY 09/21/24 Pancreatic Enzymes (CREON) 3,000 Unit Cap, 1 CAP PO BID 09/21/24 Buspirone HCl (Buspirone HCl) 10 Mg Tab, 1 TAB PO BID 09/21/24 Amlodipine Besylate (Amlodipine Besylate) 10 Mg Tab, 1 TAB PO DAILY 09/21/24 Ferrous Sulfate (Ferrous Sulfate) 325 Mg Tab, 325 MG PO BIDWM for 30 Days, MG 08/05/19 Cholecalciferol (VITAMIN D3) 2,000 Unit Tab, 61886 UNIT PO QWEEKLY, TAB 08/05/19 Lorazepam (ATIVAN TABLET) 0.5 Mg Tb, 1 TAB PO BID, #60 TAB 08/05/19 Tadalafil (Cialis) 5 Mg Tab, 1 TAB PO DAILY, #30 TAB 5 Refills 08/05/19 Fluticasone Propionate (Fluticasone Propionate) 0.05 % Cre, 50 MCG BRIAN DAILY for 30 Days, MCG 08/05/19 Cyclobenzaprine Hcl (Cyclobenzaprine Hcl) 10 Mg Tab, 5 MG PO TID for 30 Days, MG 08/05/19 Atenolol (TENORMIN TABLET) 50 Mg Tb, 1 TAB PO BID, #30 TAB 5 Refills 05/15/17 Information Source: Patient, Emergency Med Personnel Mode of Arrival: EMS Severity: Moderate Timing: Days Duration: Since onset Prehospital treatment: None Location: Substernal Radiation: No Radiation Quality: Sharp Onset: Other (After fall) Cardiac Risk Factors: HTN PE Risk Factors: None Associated Signs and Symptoms: SOB Past Medical History PAST MEDICAL HISTORY: CKF, GERD, HTN, Liver, TIA Surgical History: Tonsillectomy Family History Family History: Family hx of HTN Social History Smoker: Cigarettes Alcohol: Heavy Drugs: Denies Drug Use Lives In: Home Constitutional: denies: chills, diaphoresis, fatigue, fever, malaise, sweats, weakness, others EENTM: denies: blurred vision, double vision, ear bleeding, ear discharge, ear drainage, ear pain, ear ringing, eye pain, eye redness, hearing loss, mouth pain, mouth swelling, nasal discharge, nose bleeding, nose congestion, nose pain, photophobia, tearing, throat pain, throat swelling, voice changes, others Respiratory: reports: shortness of breath; denies: cough, hemoptysis, orthopnea, SOB at rest, SOB with excertion, stridor, wheezing, others Cardiovascular: reports: chest pain; denies: dizzy spells, diaphoresis, Dyspnea on exertion, edema, irregular heart beat, left arm pain, lightheadedness, palpitations, PND, syncope, others Gastrointestinal: denies: abdomen distended, abdominal pain, blood streaked bowels, constipated, diarrhea, dysphagia, difficulty swallowing, hematemesis, me viridiana, nausea, poor appetite, poor fluid intake, rectal bleeding, rectal pain, vomiting, others Genitourinary: denies: burning, dysuria, flank pain, frequency, hematuria, incontinence, penile discharge, penile sore, pain, testicle pain, testicle swelling, urgency, others Neurological: denies: dizziness, fainting, headache, left sided numbness, left sided weakness, numbness, paresthesia, pre-existing deficit, right sided numbness, right sided weakness, seizure, speech problems, tingling, tremors, weakness, others Musculoskeletal: denies: back pain, gout, joint pain, joint swelling, muscle pain, muscle stiffness, neck pain, others Integumetry: denies: bruises, change in color, change in hair/nails, dryness, laceration, lesions, lumps, rash, wounds, others Allergic/Immunocompromised: denies: Difficulty Healing, Frequent Infections, Hives, Itching, others Hematologic/Lymphatic: denies: anemia, blood clots, easy bleeding, easy bruising, swollen glands, others Endocrine: denies: excessive hunger, excessive sweating, excessive thirst, excessive urination, flushing, intolerance to cold, intolerance to heat, unexplained weight gain, unexplained weight loss, others Psychiatric: denies: anxiety, bipolar disorder, depression, hopeless, panic disorder, schizophrenia, sleepless, suicidal, others All Other Systems: Reviewed and Negative Physical Exam General Appearance: No Apparent Distress, Normal, Other (Clear, unlabored s peech) HEENT: Normal ENT Inspection, Pharynx Normal, TMs Normal Neck: Full Range of Motion, Non-Tender, Normal, Normal Inspection Respiratory: Chest Non-Tender, Lungs Clear, No Accessory Muscle Use, No Respiratory Distress, Normal Breath Sounds Cardiovascular: No Edema, No JVD, No Murmur, No Gallop, Normal Peripheral Pulses, Regular Rate/Rhythm Breast Exam: Deferred Gastrointestinal: No Organomegaly, Non Tender, No Pulsatile Mass, Normal Bowel Sounds, Soft Genitalia: Deferred Pelvic: Deferred Rectal: Deferred Extremities: No calf tenderness, Normal capillary refill, Normal range of motion, Non-tender, Other (Mild bilateral pitting edema) Musculoskeletal : Location: Bilateral Extremity Location: Chest Apperance: Tenderness (Anerior chest wall tenderness to palpation, no crepitus) Neurologic: Alert, manufactured buildings supervisor II-XII nml as Tested, No Motor Deficits, Normal Affect, Normal Mood, No Sensory Deficits Cerebellar Function: Normal Reflexes: Normal Skin: Dry, Normal Color, Warm Lymphatic: No Adenopathy Was a procedure done? Was a procedure done?: No CP Differential Dx Differential Diagnosis: Angina, Anxiety / Panic Attack Differential Diagnosis: CHF Differential Diagnosis: Chest Wall Pain X-Ray, Labs, Meds, VS Vital Signs Date Time Temp Pulse Resp B/P (MAP) Pulse Ox O2 Delivery O2 Flow Rate FiO2 08/24/25 21:53 67 08/24/25 21:52 97.4 71 18 100/68 98 97.4 Lab Test 08/25/25 00:00 08/24/25 22:22 Range/Units Troponin I High Sensitivity 7 7 </=54 ng/L White Blood Count 5.0 4.4-10.8 10^3/uL Red Blood Count 3.07 L 4.5-5.90 10^6/uL Hemoglobin 10.9 L 13.5-17.5 g/dL Hematocrit 32.3 L 41.0-53.0 % Mean Corpuscular Volume 105.2 H 80.0-100.0 fL Mean Corpuscular Hemoglobin 35.4 H 28.0-32.0 pg Mean Corpuscular Hemoglobin Concent 33.6 32.0-36.0 g/dL Red Cell Distribution Width 18.6 H 11.8-14.3 % Platelet Count 173 140-450 10^3/uL Mean Platelet Volume 7.6 6.9-10.8 fL Neutrophils (%) (Auto) 67.4 37.0-80.0 % Lymphocytes (%) (Auto) 18.4 10.0-50.0 % Monocytes (%) (Auto) 12.2 H 0.0-12.0 % Eosinophils (%) (Auto) 1.2 0.0-7.0 % Basophils (%) (Auto) 0.8 0.0-2.0 % Neutrophils # (Auto) 3.4 1.6-8.6 10 ^3/uL Lymphocytes # (Auto) 0.9 0.4-5.4 10 ^3/uL Monocytes # (Auto) 0.6 0-1.3 10 ^3/uL Eosinophils # (Auto) 0.1 0-0.8 10 ^3/uL Basophils # (Auto) 0 0-0.2 10 ^3/uL Nucleated Red Blood Cells 0.3 % Sodium Level 140 136-145 mmol/L Potassium Level 3.7 3.5-5.1 mmol/L Chloride Level 108 H 98-107 mmol/L Carbon Dioxide Level 20 20-31 mmol/L Anion Gap 12 5-15 Blood Urea Nitrogen 8 L 9-23 mg/dL Creatinine 1.03 0.700-1.30 mg/dL Glomerular Filtration Rate Calc 79 >90 mL/min BUN/Creatinine Ratio 7.8 L 10.0-20.0 Serum Glucose 137 H 74-106 mg/dL Calcium Level 8.1 L 8.7-10.4 mg/dL Total Bilirubin 0.6 0.2-1.0 mg/dL Aspartate Amino Transferase (AST) 99 H 13-40 U/L Alanine Aminotransferase (ALT) 45 H 7-40 U/L Alkaline Phosphatase 147 H 46-116 U/L Total Protein 5.8 5.7-8.2 g/dL Albumin 3.5 3.2-4.8 g/dL X-Ray, Labs, Meds, VS Comment Imaging was reviewed by this provider, there is no obvious pathological or acute disease process. Pending radiology review Labs were reviewed by this provider, no abnormalities Vital signs reviewed by this provider, clinically stable Time of 1ST Reevaluation: 22:53 Reevaluation 1ST: Unchanged Patient Education/Counseling: Diagnosis, Treatment, Need For Follow Up (Follow up with PCP next available appointment) Family Education/Counseling: No Family Present SEPSIS Sepsis Screen Physician Orders Urinalysis (08/24/25 21:58) Chest Xray 1 View (08/24/25 21:58) Troponin-I Hs (08/24/25 22:58) Vital Signs Date Time Temp Pulse Resp B/P (MAP) Pulse Ox O2 Delivery O2 Flow Rate FiO2 08/24/25 21:53 67 08/24/25 21:52 97.4 71 18 100/68 98 97.4 Laboratory Tests Test 08/24/25 22:22 White Blood Count 5.0 10^3/uL (4.4-10.8) Departure 1 Departure Time of Disposition: 01:51 Impression: Primary Impression: Contusion of rib on right side Qualified Codes: S29.8XXA - Other specified injuries of thorax, initial encounter Disposition: HOME / SELF CARE / HOMELESS Condition: Fair Discharged With: Self Critical Care Note Critical Care Time?: No Stability Stability form required: No Heart Score Heart Score: Heart Score Response (Comments) Value History Slightly Suspicious 0 EKG Normal 0 Age >65 2 Risk Factors >3 or Hx ASHD 2 Troponin Normal limit 0 Total 4 I personally scribed for ETHEL CHRISTIANSON ([email or web address]) on 08/24/25 at 21:57. Electronically submitted by Tuan Carty ([email or web address]). ETHEL CHRISTIANSON Aug 24, 2025 21:57
[2025-08-24 22:56] LABS: Nucleated Red Blood Cells % 0.3 %
[2025-08-24 22:58] LABS: Hematocrit 32.3 % (41.0-53.0); Hemoglobin 10.9 g/dL (13.5-17.5); Mean Corpuscular Hemoglobin 35.4 pg (28.0-32.0); Mean Corpuscular Volume 105.2 fL (80.0-100.0)
[2025-08-24 23:18] LABS: Albumin 3.5 g/dL (3.2-4.8); Anion Gap 12 (5-15); BUN/Creatinine Ratio 7.8 (10.0-20.0); Potassium 3.7 mmol/L (3.5-5.1); Sodium 140 mmol/L (136-145); Total Protein 5.8 g/dL (5.7-8.2)
[2025-08-24 23:19] LABS: Bilirubin, Total 0.6 mg/dL (0.2-1.0)
[2025-08-24 23:24] LABS: Alanine Aminotransferase 45 U/L (7-40); Alkaline Phosphatase 147 U/L (46-116); Blood Urea Nitrogen 8 mg/dL (9-23); Calcium 8.1 mg/dL (8.7-10.4); Carbon Dioxide 20 mmol/L (20-31); Chloride 108 mmol/L (98-107); Glucose 137 mg/dL (74-106)
--- NOTE | 2025-08-25 00:26 | DVH ---
CHEST RADIOGRAPH Indication: fall Technique: Single frontal view of the chest was obtained COMPARISON: XY CHEST PORTABLE on DOS: 09/23/24, CHEST PORTABLE on DOS: 01/29/20 FINDINGS: Lines and Tubes: None Lungs: Clear Pleura: No effusion. No pneumothorax. Cardiomediastinal contours: Unremarkable Bones: Unremarkable IMPRESSION: 1. No acute disease.
--- NOTE | 2025-08-25 00:27 | ECG ---
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
[2025-08-25 02:00] VITALS: BP 103/69; PULSE 60; RESP 13; TEMP 97.9; O2SAT 95
[2025-08-25] MEDS: KETOROLAC TROMETH 30 MG/ML 1ML VIAL IM ONE (02:32)
[2025-08-26] MEDS ORDERED: HYDR-4902 PO (03:13)
== END 2025-08-25 02:43 | disposition home or self-care (01) ==
LOC: ER 21:47 → EDBD 21:47 → ER 08-25 02:43
DX: S20.211A Contusion of right front wall of thorax, initial encounter (principal); I12.9 Hypertensive chronic kidney disease with stage 1 through stage 4 chronic kidney disease, or unspecified chronic kidney disease; N18.9 Chronic kidney disease, unspecified; F17.210 Nicotine dependence, cigarettes, uncomplicated; Z79.899 Other long term (current) drug therapy; Z86.73 Personal history of transient ischemic attack (TIA), and cerebral infarction without residual deficits; Z90.89 Acquired absence of other organs
CPT/HCPCS: 36415; 71045; 80053; 84484; 85025; 93005; 96372; 99285; J1885

== ENCOUNTER 2025-08-25 22:34 | Emergency (ER) | payer OTHER, MEDICAID ==
[~2025-08-25] VITALS: Ht 160 cm; Wt 44.5 kg
--- NOTE | 2025-08-25 22:56 | ECG ---
[facility] Test Date: 2025-08-25 Test Time: 22:49:54 Pat Name: BERTO SIMMONS Department: [facility] ED Patient ID: [facility]-[id number] Room: Gender: M Ed Manager: AZEEM : 1955 Requested By: EMERGENCY EMERGENCY Order Number: [id number] Reading MD: Measurements Intervals [place] Rate: 68 P: 63 MT: 175 QRS: 78 QRSD: 94 T: 74 QT: 396 QTc: 422 Interpretive Statements Sinus rhythm Please click the below link to view image of tracing.
[2025-08-26] MEDS ORDERED: HYDR-4902 PO (03:13)
--- NOTE | 2025-08-26 03:15 | ED.PDOC ---
Back pain HPI HPI Comments Patient brought in by EMS. Patient states he has been having chest wall pain due to his fall. Review of chart shows the patient was seen yesterday for the same problem. Cardiac workup was done, no cardiac problems, no chest wall fractures. Patient states he has not have any pain medications. Patient requesting medicines. Chief Complaint: Chest Wall Injury Time Seen by MD: 02:55 Primary Care Provider: EULOGIO Hendrickson Reviewed Notes: Nurses Notes Allergies: Coded Allergies: NO KNOWN ALLERGIES (Unverified , 05/14/17) Home Meds Active Scripts Nicotine (Nicotine) 14 Mg/24 Hr Dis, 1 MG TD DAILY for 30 Days, #30 DIS Prov:KELY CRUZ MD 09/25/24 Pantoprazole Sodium Sesquihydr (Pantoprazole Sodium) 40 Mg Tab, 40 MG PO BID@0600,1700 for 30 Days, #60 TAB Prov:KELY CRUZ MD 09/25/24 Hydrocodone-Acetaminophen (Hydrocodone Bitartrate/AC 10-325 mg) 1 Tab Tab, 1 TAB PO Q6HR for 3 Days, #12 TAB Prov:KELY CRUZ MD 09/25/24 Sucralfate (CARAFATE SUSP) 1 Gm/10 Ml Ss, 1 GM PO QID@0600,1130,1700,2200 for 30 Days, #1200 ML Prov:KELY CRUZ MD 09/25/24 Morphine Sulfate (Morphine Sulfate Cr) 15 Mg Tab, 15 MG PO Q8HR PRN for 3 Days, #9 TAB Prov:KELY CRUZ MD 09/25/24 Mupirocin Calcium (Topical) (MUPIROCIN) 2 % Cre, 2 % EX DIRECTED for 5 Days, CRE Prov:MICHELLE MCNEIL MD 08/06/19 Folic Acid (Folic Acid) 1 Mg Tab, 1 MG PO DAILY, #30 TAB Prov:MICHELLE MCNEIL MD 08/06/19 Thiamine Hcl (Thiamine) 50 Mg Cap, 50 MG PO DAILY, #30 Prov:MICHELLE MCNEIL MD 08/06/19 Reported Medications Hydroxyzine Hcl (Hydroxyzine Hcl) 25 Mg Tab, 1 TAB PO DAILY 09/21/24 Pancreatic Enzymes (CREON) 3,000 Unit Cap, 1 CAP PO BID 09/21/24 Buspirone HCl (Buspirone HCl) 10 Mg Tab, 1 TAB PO BID 09/21/24 Amlodipine Besylate (Amlodipine Besylate) 10 Mg Tab, 1 TAB PO DAILY 09/21/24 Ferrous Sulfate (Ferrous Sulfate) 325 Mg Tab, 325 MG PO BIDWM for 30 Days, MG 08/05/19 Cholecalciferol (VITAMIN D3) 2,000 Unit Tab, 74195 UNIT PO QWEEKLY, TAB 08/05/19 Lorazepam (ATIVAN TABLET) 0.5 Mg Tb, 1 TAB PO BID, #60 TAB 08/05/19 Tadalafil (Cialis) 5 Mg Tab, 1 TAB PO DAILY, #30 TAB 5 Refills 08/05/19 Fluticasone Propionate (Fluticasone Propionate) 0.05 % Cre, 50 MCG BRIAN DAILY for 30 Days, MCG 08/05/19 Cyclobenzaprine Hcl (Cyclobenzaprine Hcl) 10 Mg Tab, 5 MG PO TID for 30 Days, MG 08/05/19 Atenolol (TENORMIN TABLET) 50 Mg Tb, 1 TAB PO BID, #30 TAB 5 Refills 05/15/17 Mode of Arrival: EMS Past Medical History PAST MEDICAL HISTORY: CKF, GERD, HTN, Liver, TIA Surgical History: Tonsillectomy Family History Family History: Family hx of HTN Social History Smoker: Cigarettes Alcohol: Heavy Drugs: Denies Drug Use Lives In: Home Constitutional: denies: chills, diaphoresis, fatigue, fever, malaise, sweats, weakness, others EENTM: denies: blurred vision, double vision, ear bleeding, ear discharge, ear drainage, ear pain, ear ringing, eye pain, eye redness, hearing loss, mouth pain, mouth swelling, nasal discharge, nose bleeding, nose congestion, nose pain, photophobia, tearing, throat pain, throat swelling, voice changes, others Respiratory: denies: cough, hemoptysis, orthopnea, SOB at rest, shortness of breath, SOB with excertion, stridor, wheezing, others Cardiovascular: reports: chest pain; denies: dizzy spells, diaphoresis, Dyspnea on exertion, edema, irregular heart beat, left arm pain, lightheadedness, palpitations, PND, syncope, others Gastrointestinal: denies: abdomen distended, abdominal pain, blood streaked bowels, constipated, diarrhea, dysphagia, difficulty swallowing, hematemesis, melena, nausea, poor appetite, poor fluid intake, rectal bleeding, rectal pain, vomiting, others Genitourinary: denies: burning, dysuria, flank pain, frequency, hematuria, incontinence, penile discharge, penile sore, pain, testicle pain, testicle swelling, urgency, others Neurological: denies: dizziness, fainting, headache, left sided numbness, left sided weakness, numbness, paresthesia, pre-existing deficit, right sided numbness, right sided weakness, seizure, speech problems, tingling, tremors, weakness, others Musculoskeletal: denies: back pain, gout, joint pain, joint swelling, muscle pain, muscle stiffness, neck pain, others Physical Exam General Appearance: Moderate Distress, Thin HEENT: Normal ENT Inspection, Pharynx Normal, TMs Normal Neck: Full Range of Motion, Non-Tender, Normal, Normal Inspection Respiratory: Chest Non-Tender, Lungs Clear, No Accessory Muscle Use, No Respiratory Distress, Normal Breath Sounds Cardiovascular: No Edema, No JVD, No Murmur, No Gallop, Normal Peripheral Pulses, Regular Rate/Rhythm Breast Exam: Deferred Gastrointestinal: No Organomegaly, Non Tender, No Pulsatile Mass, Normal Bowel Sounds, Soft Genitalia: Deferred Pelvic: Deferred Rectal: Deferred Extremities: No calf tenderness, Normal capillary refill, Normal inspection, Normal range of motion, Non-tender, No pedal edema Musculoskeletal : Extremity Location: Chest (Chest wall tender to palpation) Apperance: Normal Neurologic: Alert, ager tender II-XII nml as Tested, No Motor Deficits, Normal Affect, Normal Mood, No Sensory Deficits Cerebellar Function: Normal Reflexes: Normal Skin: Dry, Normal Color, Warm Lymphatic: No Adenopathy Was a procedure done? Was a procedure done?: No Back Pain Differential Dx Differential Diagnosis: Fracture, Musculoskeletal Pain X-Ray, Labs, Meds, VS Vital Signs Date Time Temp Pulse Resp B/P (MAP) Pulse Ox O2 Delivery O2 Flow Rate FiO2 08/25/25 22:49 68 08/25/25 22:46 98.0 65 16 115/78 100 98.0 X-Ray, Labs, Meds, VS Comment Imaging was reviewed by this provider, there is no obvious pathological or acute disease process. Pending radiology review Labs were reviewed by this provider, no abnormalities Vital signs reviewed by this provider, clinically stable Time of 1ST Reevaluation: 03:15 Reevaluation 1ST: Improved Patient Education/Counseling: Diagnosis, Treatment, Need For Follow Up (Follow up with PCP next available appointment.) Family Education/Counseling: Diagnosis, Treatment SEPSIS Sepsis Screen Date sepsis recognized/suspect: Aug 25, 2025 Time Sepsis recognized/suspect: 2248 Recent Procedure: No On Antibiotic Therapy: No Respiratory Rate >20: No Heart Rate >90: No Temp<36 C (96.8 F) or >38.3 C: No SBP <90 or MAP <65 mmHG: No New Acute Mental Status Change: No Is the patient on CPAP, BIPAP,: No Physician Orders Hydrocodone-Acet 10/325mg Tab (Tully 10/ (08/26/25 03:15) Vital Signs Date Time Temp Pulse Resp B/P (MAP) Pulse Ox O2 Delivery O2 Flow Rate FiO2 08/25/25 22:49 68 08/25/25 22:46 98.0 65 16 115/78 100 98.0 Departure 1 Departure Time of Disposition: 03:12 Impression: Primary Impression: Contusion of rib on right side Qualified Codes: S29.8XXA - Other specified injuries of thorax, initial encounter Disposition: HOME / SELF CARE / HOMELESS Condition: Fair e-Prescriptions Hydrocodone-Acetaminophen (Hydrocodone Bitartrate/AC 5-325 mg) 1 Tab Tab 1 TAB PO TID PRN, #20 TAB Prov: ETHEL CHRISTIANSON 08/26/25 Discharged With: Self Critical Care Note Critical Care Time?: No Stability Stability form required: No Heart Score Heart Score: Heart Score Response (Comments) Value History N/A 0 EKG N/A 0 Age N/A 0 Risk Factors N/A 0 Troponin N/A 0 Total 0 ETHEL CHRISTIANSON Aug 26, 2025 03:15
[2025-08-26] MEDS: HYDROcodone-ACET 10/325MG TAB PO ONE (03:52)
[2025-08-26 03:53] VITALS: BP 124/75; PULSE 63; RESP 18; TEMP 98.7; O2SAT 98
== END 2025-08-26 03:23 | disposition home or self-care (01) ==
LOC: EDUNIT# 22:34 → ER 22:34 → EDBD 22:34 → ER 08-26 03:23
DX: S20.211A Contusion of right front wall of thorax, initial encounter (principal); I10 Essential (primary) hypertension; F17.210 Nicotine dependence, cigarettes, uncomplicated; Z90.89 Acquired absence of other organs; Z86.73 Personal history of transient ischemic attack (TIA), and cerebral infarction without residual deficits; Z79.899 Other long term (current) drug therapy; W19.XXXA Unspecified fall, initial encounter; Y93.89 Activity, other specified; Y92.89 Other specified places as the place of occurrence of the external cause; Y99.8 Other external cause status
CPT/HCPCS: 93005